=== PATIENT | female | born 1950 | race Caucasian/White ===

== ENCOUNTER 2017-12-30 06:28 | Day surgery (SDC) | payer MEDICARE, OTHER ==
[~2017-12-30 06:28] MED LIST: Lactated Ringers 1,000 ML IV SCH; Lidocaine 1%/Sod Bicarbonate in NS 8.4% 1 ML Syringe IDERM PRN; Sodium Chloride 0.9% 10 ML Syringe FLUSH PRN
[2017-12-30] MEDS ORDERED: Lidocaine 1% 4 ML ONE (07:04)
[2017-12-30] MEDS ORDERED: Propofol 200 MG/20 ML SDV ONE (07:04)
[2017-12-30] MEDS ORDERED: fentaNYL 100 MCG/2 ML SDV ONE (07:05)
--- NOTE | 2017-12-30 07:10 | PCM.PREANE ---
Preanesthetic Assessment - Procedure Proposed Procedure: screening colonoscopy - Anesthesia/Transfusion/Family Hx Anesthesia History: Prior Anesthesia Without Reaction Family History of Anesthesia Reaction: No Transfusion History: No Prior Transfusion(s) - Review of Systems General: No Symptoms Pulmonary: No Symptoms Cardiovascular: No Symptoms Gastrointestinal: No Symptoms Neurological: No Symptoms Other: Reports: None - Physical Assessment NPO Status Date: 12/29/17 NPO Status Time: 19:00 Pulse: 78 O2 Sat by Pulse Oximetry: 92 Respiratory Rate: 16 Blood Pressure: 148/86 Temperature: 98.7 F Height: 5 ft 2 in Weight: 105 kg ASA Class: 2 Mental Status: Alert & Oriented x3 Airway Class: Mallampati = 1 Dentition: Reports: Normal Dentition Thyro-Mental Finger Breadths: 3 Mouth Opening Finger Breadths: 3 ROM/Head Extension: Full Lungs: Clear to Auscultation, Normal Respiratory Effort Cardiovascular: Regular Rate, Regular Rhythm - Allergies Allergies/Adverse Reactions: Allergies Allergy/AdvReac Type Severity Reaction Status Date / Time No Known Allergies Allergy Verified 12/29/17 13:21 - Acknowledgements Anesthesia Type Planned: MAC Pt an Appropriate Candidate for the Planned Anesthesia: Yes Alternatives and Risks of Anesthesia Discussed w Pt/Guardian: Yes Pt/Guardian Understands and Agrees with Anesthesia Plan: Yes PreAnesthesia Questionnaire HEENT History: Reports: None, Impaired Vision Cardiovascular History: Reports: Hypertension Respiratory History: Reports: None Gastrointestinal History: Reports: None LPN CARE MANAGER History: Reports: None Musculoskeletal History: Reports: None Neurological History: Reports: Other (See Below) Other Neuro History: brain aneurysm with repair Psychiatric History: Reports: None Endocrine/Metabolic History: Reports: Obesity/BMI 30+ Hematologic History: Reports: None Immunologic History: Reports: None Oncologic (Cancer) History: Reports: None Dermatologic History: Reports: None - Past Surgical History Head Surgeries/Procedures: Reports: Other (See Below) (brain aneurysm surgery) HEENT Surgical History: Reports: None Cardiovascular Surgical History: Reports: None Respiratory Surgical History: Reports: None GI Surgical History: Reports: None Female Surgical History: Reports: None Male Surgical History: Reports: None Endocrine Surgical History: Reports: None Neurological Surgical History: Reports: None Musculoskeletal Surgical History: Reports: None Oncologic Surgical History: Reports: None Dermatological Surgical History: Reports: None - SUBSTANCE USE Smoking Status *Q: Never Smoker Tobacco Use Within Last Twelve Months: No Second Hand Smoke Exposure: No Days Per Week of Alcohol Use: 0 Recreational Drug Use History: No - HOME MEDS Home Medications: Home Meds Hydrochlorothiazide 25 mg PO DAILY 12/29/17 [History] - CURRENT (IN HOUSE) MEDS Current Meds: Current Medications Lactated Ringer's (Ringers, Lactated) 1,000 mls @ 125 mls/hr IV ASDIRECTED MORRO Stop: 12/30/17 23:00 Lidocaine/Sodium Bicarbonate (Buffered Lidocaine 1% In Ns 8.4%) 0.25 ml IDERM ONETIME PRN PRN Reason: Prior to IV Start Stop: 12/30/17 18:00 Sodium Chloride (Saline Flush) 10 ml FLUSH ASDIRECTED PRN PRN Reason: Keep Vein Open Stop: 12/30/17 18:00
--- NOTE | 2017-12-30 07:57 | PCM.HP ---
H&P History of Present Illness - General Date of Service: 12/30/17 Source of Information: Patient History Limitations: Reports: No Limitations - History of Present Illness Initial Comments - Free Text/Narative: 67 year old female here today for colonoscopy for colon cancer screening. She is having no concerns with her bowels. She has no family history of colon cancer. 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: None Musculoskeletal History: Reports: None Neurological History: Reports: Other (See Below) Other Neuro History: brain aneurysm with repair Psychiatric History: Reports: None Endocrine/Metabolic History: Reports: Obesity/BMI 30+ Hematologic History: Reports: None Immunologic History: Reports: None Oncologic (Cancer) History: Reports: None Dermatologic History: Reports: None - Past Surgical History Head Surgeries/Procedures: Reports: Other (See Below) (brain aneurysm surgery) HEENT Surgical History: Reports: None Cardiovascular Surgical History: Reports: None Respiratory Surgical History: Reports: None GI Surgical History: Reports: None Female Surgical History: Reports: None Male Surgical History: Reports: None Endocrine Surgical History: Reports: None Neurological Surgical History: Reports: None Musculoskeletal Surgical History: Reports: None Oncologic Surgical History: Reports: None Dermatological Surgical History: Reports: None Social & Family History - Tobacco Use Smoking Status *Q: Never Smoker Second Hand Smoke Exposure: No - Caffeine Use Caffeine Use: Reports: Soda - Alcohol Use Days Per Week of Alcohol Use: 0 - Recreational Drug Use Recreational Drug Use: No Drug Use in Last 12 Months: No H&P Review of Systems - Review of Systems: Review Of Systems: See Below General: Reports: No Symptoms Pulmonary: Reports: No Symptoms Cardiovascular: Reports: No Symptoms Gastrointestinal: Reports: No Symptoms Genitourinary: Reports: No Symptoms Exam - Exam Exam: See Below - Vital Signs Vital Signs: Last Vital Signs Temp 37.1 C 12/30/17 07:18 Pulse 78 12/30/17 07:18 Resp 16 12/30/17 07:18 BP 148/86 H 12/30/17 07:18 Pulse Ox 92 L 12/30/17 07:18 Weight: 105 kg - Exam General: Alert, Oriented Lungs: Clear to Auscultation, Normal Respiratory Effort Cardiovascular: Regular Rate, Regular Rhythm GI/Abdominal Exam: Normal Bowel Sounds, Soft, Non-Tender - Problem List (1) Colon cancer screening SNOMED Code(s): 349460356, [id number] ICD Code: Z12.11 - ENCOUNTER FOR SCREENING FOR MALIGNANT NEOPLASM OF COLON Status: Acute Current Visit: Yes Problem List Initiated/Reviewed/Updated: Yes Orders Last 24hrs: Active Orders 24 hr Category Date Time Status Peripheral IV Care [RC] . DIRECTED Care 12/30/17 00:01 Active Verify Patient Consent Obtain [RC] ASDIRECTED Care 12/30/17 00:01 Active Lactated Ringers [Ringers, Lactated] 1,000 ml Med 12/30/17 00:01 Active IV ASDIRECTED Lidocaine 1%/Sod Bicarbonate [Buffered Lidocaine 1% in Med 12/30/17 00:01 Active NS 8.4%] 0.25 ml IDERM ONETIME PRN Sodium Chloride 0.9% [Saline Flush] Med 12/30/17 00:01 Active 10 ml FLUSH ASDIRECTED PRN Medication Administration Instruction [OM.PC] Routine Oth 12/30/17 00:01 Ordered Peripheral IV Insertion Adult [OM.PC] Routine Oth 12/30/17 00:01 Ordered Medication Orders Lactated Ringer's (Ringers, Lactated) 1,000 mls @ 125 mls/hr IV ASDIRECTED MORRO Stop: 12/30/17 23:00 Last Admin: 12/30/17 06:55 Dose: 125 mls/hr Lidocaine/Sodium Bicarbonate (Buffered Lidocaine 1% In Ns 8.4%) 0.25 ml IDERM ONETIME PRN PRN Reason: Prior to IV Start Stop: 12/30/17 18:00 Last Admin: 12/30/17 06:54 Dose: 0.25 ml Sodium Chloride (Saline Flush) 10 ml FLUSH ASDIRECTED PRN PRN Reason: Keep Vein Open Stop: 12/30/17 18:00 Assessment/Plan Comment:: 67 year old female here for screening colonoscopy. Benefits/risks discussed and proceed with procedure. She has signed consent.
[2017-12-30] MEDS ORDERED: Ondansetron 4 MG/2 ML SDV IVPUSH PRN (08:27)
--- NOTE | 2017-12-30 08:30 | PCM.OPNOTE ---
- General Post-Op/Procedure Note Date of Surgery/Procedure: 12/30/17 Operative Procedure(s): Colonoscopy with hot snare polypectomy, cold forceps biopsy Findings: 2 - 2 mm ascending polyps, 1 - 1 cm sigmoid polyp, 1 - 2 mm rectal polyp, internal hemorrhoids Post-Op Diagnosis: Colon polyps, internal hemorrhoids Anesthesia Technique: MAC Primary Surgeon: Darren Vazquez Anesthesia Provider: Iqra Stratton EBL in mLs: 5 Complications: None Condition: Good Free Text/Narrative:: After the patient gave verbal and written consent she was placed on blood pressure monitoring. She was given iv sedation which she tolerated well. The olympus colonoscope was inserted per rectum and advanced to the cecum without difficulty. The ileocecal valve and appendiceal orfice were imaged documenting cecal intubation. The scope was slowly withdrawn and the mucosa carefully visualized. The prep was good, the views were good. 2 small 2 mm polyps were noted in the ascending colon and removed with cold forceps biopsy. There was good hemostasis. A larger pedunculated polyp was noted in the mid sigmoid colon and removed with hot snare polypectomy. There was good hemostasis. A small 2 mm rectal polyp was seen and removed with cold forceps biopsy. There was good hemostasis. The scope was then retroflexed and then removed. Internal hemorrhoids were seen. The patient left in good condition and there were no complications.
--- NOTE | 2017-12-30 10:03 | PCM48HPAN ---
Post Anesthesia Note - EVALUATION WITHIN 48HRS OF ANESTHETIC Vital Signs in Normal Range: Yes Patient Participated in Evaluation: Yes Respiratory Function Stable: Yes Airway Patent: Yes Cardiovascular Function Stable: Yes Hydration Status Stable: Yes Pain Control Satisfactory: Yes Nausea and Vomiting Control Satisfactory: Yes Mental Status Recovered: Yes Pulse Rate: 69 SaO2: 94 Resp Rate: 16 Blood Pressure: 130/77
== END 2017-12-30 09:10 | disposition home or self-care (01) ==
LOC: JD.SDS 06:28
PROVIDERS: ATTEND Family Medicine
DX: Z12.11 Encounter for screening for malignant neoplasm of colon (principal); D12.2 Benign neoplasm of ascending colon; D12.5 Benign neoplasm of sigmoid colon; K62.1 Rectal polyp; K64.8 Other hemorrhoids; I10 Essential (primary) hypertension; E66.9 Obesity, unspecified; Z68.41 Body mass index [BMI] 40.0-44.9, adult
CPT/HCPCS: 45380; 45385; J2001; J3010; J7120; J2704

== ENCOUNTER 2020-02-20 13:56 | Emergency (ER) | payer MEDICARE, OTHER | END 2020-02-20 14:08 | disposition left against medical advice (07) | LOC: JD.ED 13:56 | DX: Z53.21 Procedure and treatment not carried out due to patient leaving prior to being seen by health care provider (principal) ==

== ENCOUNTER 2020-02-20 16:26 | Inpatient (IN) | payer MEDICARE, OTHER ==
[2020-02-20] MEDS ORDERED: Sodium Chloride 0.9% 10 ML Syringe FLUSH PRN (17:39)
--- NOTE | 2020-02-20 19:03 | EDM.PDOC ---
ED HPI GENERAL MEDICAL PROBLEM - General Chief Complaint: Respiratory Problem Stated Complaint: COUGH/DIARRHEA/LOW O2 Time Seen by Provider: 02/20/20 17:20 Source of Information: Reports: Patient, Family History Limitations: Reports: No Limitations - History of Present Illness INITIAL COMMENTS - FREE TEXT/NARRATIVE: The patient presents from home for shortness of breath, cough and some confusion. Her is in our hospital and he is COVID positive. She is suspected COVID positive and quarantined. Her daughter brought her in because she has had a cough, shortness of breath, generalized weakness, no appetite and she has been confused. Last week she got lost driving in town and she has trouble doing everyday things like working her phone. Her oxygen saturations we re as low as 86% at home. I did see saturations as low at 88% here. She has no history of lung problems like asthma or COPD. She does have a history of hypertension. She developed some diarrhea. Onset: Gradual Duration: Week(s): Severity: Moderate Improves with: Reports: None Worsens with: Reports: None Associated Symptoms: Reports: Cough, Shortness of Breath. 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 History: Reports: None Musculoskeletal History: Reports: None Neurological History: Reports: Other (See Below) Other Neuro History: brain aneurysm with repair Psychiatric History: Reports: None Endocrine/Metabolic History: Reports: Obesity/BMI 30+ Hematologic History: Reports: None Immunologic History: Reports: None Oncologic (Cancer) History: Reports: None Dermatologic History: Reports: None - Infectious Disease History Infectious Disease History: Reports: Novel Coronavirus - Past Surgical History Head Surgeries/Procedures: Reports: Other (See Below) HEENT Surgical History: Reports: None Cardiovascular Surgical History: Reports: None, Aneurysm Respiratory Surgical History: Reports: None GI Surgical History: Reports: None Female Surgical History: Reports: None Endocrine Surgical History: Reports: None Neurological Surgical History: Reports: None Musculoskeletal Surgical History: Reports: None Oncologic Surgical History: Reports: None Dermatological Surgical History: Reports: None Social & Family History - Family History Family Medical History: Noncontributory - Tobacco Use Smoking Status *Q: Never Smoker - Caffeine Use Caffeine Use: Reports: Coffee, Soda, Tea - Recreational Drug Use Recreational Drug Use: No ED ROS GENERAL - Review of Systems Review Of Systems: See Below Constitutional: Reports: Chills. Denies: Fever HEENT: Reports: No Symptoms Respiratory: Reports: Shortness of Breath, Cough Cardiovascular: Reports: No Symptoms Endocrine: Reports: No Symptoms GI/Abdominal: Reports: No Symptoms : Reports: No Symptoms ED EXAM, GENERAL - Physical Exam Exam: See Below Exam Limited By: No Limitations General Appearance: Alert, No Apparent Distress Ears: Normal External Exam Nose: Normal Inspection Head: Atraumatic, Normocephalic Neck: Normal Inspection Respiratory/Chest: No Respiratory Distress, Decreased Breath Sounds, Rales (right lung) Cardiovascular: Regular Rate, Rhythm, No Edema, No Murmur GI/Abdominal: Soft, Non-Tender, No Organomegaly, No Mass Back Exam: Normal Inspection Extremities: Normal Inspection Neurological: Alert, Oriented, No Motor/Sensory Deficits Course - Vital Signs Last Recorded V/S: Last Vital Signs Temp 97.4 F 02/20/20 16:58 Pulse 72 02/20/20 16:58 Resp 18 02/20/20 16:58 BP 112/74 02/20/20 16:58 Pulse Ox 99 02/20/20 18:04 - Orders/Labs/Meds Orders: Active Orders 24 hr Category Date Time Status Cardiac Monitoring [RC] . DIRECTED Care 02/20/20 17:39 Active Oxygen Therapy [RC] PRN Care 02/20/20 17:39 Active Peripheral IV Care [RC] . DIRECTED Care 02/20/20 17:40 Active CORONAVIRUS COVID-19 BLADE [MOLEC] Stat Lab 02/20/20 19:00 Received Sodium Chloride 0.9% [Normal Saline] 500 ml Med 02/20/20 19:48 Ordered IV .BOLUS Sodium Chloride 0.9% [Saline Flush] Med 02/20/20 17:39 Active 10 ml FLUSH ASDIRECTED PRN Peripheral IV Insertion Adult [OM.PC] Stat Oth 02/20/20 17:39 Ordered Medication Orders Sodium Chloride (Saline Flush) 10 ml FLUSH ASDIRECTED PRN PRN Reason: Keep Vein Open Last Admin: 02/20/20 18:08 Dose: 10 ml Documented by: ALEXIS Labs: Laboratory Tests 02/20/20 02/20/20 02/20/20 Range/Units 18:35 18:35 18:35 WBC 5.38 (3.98-10.04) K/mm3 RBC 4.48 (3.98-5.22) M/mm3 Hgb 13.3 (11.2-15.7) gm/dl Hct 39.4 (34.1-44.9) % MCV 87.9 (79.4-94.8) fl MCH 29.7 (25.6-32.2) pg MCHC 33.8 (32.2-35.5) g/dl RDW Std Deviation 41.5 (36.4-46.3) fL Plt Count 239 (182-369) K/mm3 MPV 10.1 (9.4-12.3) fl Neut % (Auto) 51.8 (34.0-71.1) % Lymph % (Auto) 30.5 (19.3-51.7) % [place] % (Auto) 13.9 H (4.7-12.5) % Eos % (Auto) 1.3 (0.7-5.8) Baso % (Auto) 1.9 H (0.1-1.2) % Neut # (Auto) 2.79 (1.56-6.13) K/mm3 Lymph # (Auto) 1.64 (1.18-3.74) K/mm3 [place] # (Auto) 0.75 H (0.24-0.36) K/mm3 Eos # (Auto) 0.07 (0.04-0.36) K/mm3 Baso # (Auto) 0.10 H (0.01-0.08) K/mm3 Manual Slide Review Abnormal smear D-Dimer, Quantitative 0.77 H (0.19-0.50) mg/L Puncture Site ABG pH (7.35-7.45) ABG pCO2 (35.0-45.0) mmHg ABG pO2 (80.0-100.0) mmHg ABG HCO3 (22.0-26.0) meq/L ABG O2 Saturation (96.0-97.0) % ABG Base Excess (-2-2.0) Boris Test O2 Delivery Device Oxygen Flow Rate Sodium 135 L (136-145) mEq/L Potassium 3.4 L (3.5-5.1) mEq/L Chloride 98 (98-107) mEq/L Carbon Dioxide 29 (21-32) mEq/L Anion Gap 11.4 (5-15) BUN 32 H (7-18) mg/dL Creatinine 1.8 H (0.55-1.02) mg/dL Est Cr Clr Drug Dosing 23.66 mL/min Estimated GFR (MDRD) 28 (>60) mL/min BUN/Creatinine Ratio 17.8 (14-18) Glucose 90 (80-115) mg/dL Lactic Acid (0.4-2.0) mmol/L Calcium 9.4 (8.5-10.1) mg/dL Ferritin (8-252) ng/ml Total Bilirubin 0.7 (0.2-1.0) mg/dL AST 23 (15-37) U/L ALT 22 (14-59) U/L Alkaline Phosphatase 46 (46-116) U/L Lactate Dehydrogenase 168 (81-234) U/L Creatine Kinase 68 (26-192) U/L C-Reactive Protein 2.1 H* (<1.0) mg/dL NT-Pro-B Natriuret Pep (0-125) pg/mL Total Protein 7.9 (6.4-8.2) g/dl Albumin 3.5 (3.4-5.0) g/dl Globulin 4.4 gm/dL Albumin/Globulin Ratio 0.8 L (1-2) 02/20/20 02/20/20 02/20/20 Range/Units 18:35 18:35 18:35 WBC (3.98-10.04) K/mm3 RBC (3.98-5.22) M/mm3 Hgb (11.2-15.7) gm/dl Hct (34.1-44.9) % MCV (79.4-94.8) fl MCH (25.6-32.2) pg MCHC (32.2-35.5) g/dl RDW Std Deviation (36.4-46.3) fL Plt Count (182-369) K/mm3 MPV (9.4-12.3) fl Neut % (Auto) (34.0-71.1) % Lymph % (Auto) (19.3-51.7) % [place] % (Auto) (4.7-12.5) % Eos % (Auto) (0.7-5.8) Baso % (Auto) (0.1-1.2) % Neut # (Auto) (1.56-6.13) K/mm3 Lymph # (Auto) (1.18-3.74) K/mm3 [place] # (Auto) (0.24-0.36) K/mm3 Eos # (Auto) (0.04-0.36) K/mm3 Baso # (Auto) (0.01-0.08) K/mm3 Manual Slide Review D-Dimer, Quantitative (0.19-0.50) mg/L Puncture Site ABG pH (7.35-7.45) ABG pCO2 (35.0-45.0) mmHg ABG pO2 (80.0-100.0) mmHg ABG HCO3 (22.0-26.0) meq/L ABG O2 Saturation (96.0-97.0) % ABG Base Excess (-2-2.0) Boris Test O2 Delivery Device Oxygen Flow Rate Sodium (136-145) mEq/L Potassium (3.5-5.1) mEq/L Chloride (98-107) mEq/L Carbon Dioxide (21-32) mEq/L Anion Gap (5-15) BUN (7-18) mg/dL Creatinine (0.55-1.02) mg/dL Est Cr Clr Drug Dosing mL/min Estimated GFR (MDRD) (>60) mL/min BUN/Creatinine Ratio (14-18) Glucose (80-115) mg/dL Lactic Acid 1.0 (0.4-2.0) mmol/L Calcium (8.5-10.1) mg/dL Ferritin 583 H (8-252) ng/ml Total Bilirubin (0.2-1.0) mg/dL AST (15-37) U/L ALT (14-59) U/L Alkaline Phosphatase (46-116) U/L Lactate Dehydrogenase (81-234) U/L Creatine Kinase (26-192) U/L C-Reactive Protein (<1.0) mg/dL NT-Pro-B Natriuret Pep 30 (0-125) pg/mL Total Protein (6.4-8.2) g/dl Albumin (3.4-5.0) g/dl Globulin gm/dL Albumin/Globulin Ratio (1-2) // Range/Units 19:31 WBC (3.98-10.04) K/mm3 RBC (3.98-5.22) M/mm3 Hgb (11.2-15.7) gm/dl Hct (34.1-44.9) % MCV (79.4-94.8) fl MCH (25.6-32.2) pg MCHC (32.2-35.5) g/dl RDW Std Deviation (36.4-46.3) fL Plt Count (182-369) K/mm3 MPV (9.4-12.3) fl Neut % (Auto) (34.0-71.1) % Lymph % (Auto) (19.3-51.7) % [place] % (Auto) (4.7-12.5) % Eos % (Auto) (0.7-5.8) Baso % (Auto) (0.1-1.2) % Neut # (Auto) (1.56-6.13) K/mm3 Lymph # (Auto) (1.18-3.74) K/mm3 [place] # (Auto) (0.24-0.36) K/mm3 Eos # (Auto) (0.04-0.36) K/mm3 Baso # (Auto) (0.01-0.08) K/mm3 Manual Slide Review D-Dimer, Quantitative (0.19-0.50) mg/L Puncture Site Rt radial ABG pH 7.40 (7.35-7.45) ABG pCO2 41.2 (35.0-45.0) mmHg ABG pO2 84.0 (80.0-100.0) mmHg ABG HCO3 24.8 (22.0-26.0) meq/L ABG O2 Saturation 96.2 (96.0-97.0) % ABG Base Excess 0.4 (-2-2.0) Boris Test Positive O2 Delivery Device Nasal cannula Oxygen Flow Rate 1.0 Sodium (136-145) mEq/L Potassium (3.5-5.1) mEq/L Chloride (98-107) mEq/L Carbon Dioxide (21-32) mEq/L Anion Gap (5-15) BUN (7-18) mg/dL Creatinine (0.55-1.02) mg/dL Est Cr Clr Drug Dosing mL/min Estimated GFR (MDRD) (>60) mL/min BUN/Creatinine Ratio (14-18) Glucose (80-115) mg/dL Lactic Acid (0.4-2.0) mmol/L Calcium (8.5-10.1) mg/dL Ferritin (8-252) ng/ml Total Bilirubin (0.2-1.0) mg/dL AST (15-37) U/L ALT (14-59) U/L Alkaline Phosphatase (46-116) U/L Lactate Dehydrogenase (81-234) U/L Creatine Kinase (26-192) U/L C-Reactive Protein (<1.0) mg/dL NT-Pro-B Natriuret Pep (0-125) pg/mL Total Protein (6.4-8.2) g/dl Albumin (3.4-5.0) g/dl Globulin gm/dL Albumin/Globulin Ratio (1-2) Meds: Medications Generic Name Dose Route Start Last Admin Trade Name Freq PRN Reason Stop Dose Admin Sodium Chloride 10 ml 02/20/20 17:39 02/20/20 18:08 Saline Flush FLUSH 10 ml ASDIRECTED PRN Administration Keep Vein Open - Re-Assessments/Exams Free Text/Narrative Re-Assessment/Exam: 02/20/20 19:06 I ordered an IV saline lock, oxygen, CXR, and labs. Her CXR shows some increased lung markings in the perihilar region. 02/20/20 19:37 Her CXR shows slightly prominent inferior hilar region on the right side. This may represent adenopathy, focal bronchitis, or even superimposed small area of pneumonia. Her CBC looks good. Her D-dimer is elevated at 0.77. Her Na was low at 135. Her K was low at 3.4. Her creatinine is elevated at 1.8. Her lactic acid is normal at 1. Her ferritin is elevated at 583. Her LDH is normal. Her CRP is elevated at 2.1. 02/20/20 19:40 Her ABG looks good. She has a normal pH, pCO2 and pO2. That is on oxygen. 02/20/20 19:50 Her COVID 19 is not back yet but we will treat her the same until were get [address] I [address] Fuentes and he agreed to the admission. 02/20/20 19:52 I have ordered a fluid bolus and a rate of 125mL/hr. Departure - Departure Time of Disposition: 19:55 Disposition: Admitted As Inpatient 67 Condition: Fair Clinical Impression: COVID-19, Hypoxia, Renal insufficiency - Discharge Information Referrals: Chloe Saldana QC CHEMIST [Primary Care Provider] - Forms: ED Department Discharge Sepsis Event Note (ED) - Evaluation Sepsis Screening Result: No Definite Risk - Focused Exam Vital Signs: Vital Signs Temp Pulse Resp BP Pulse Ox Pulse Ox 02/20/20 18:04 99 02/20/20 18:00 89 L 02/20/20 16:58 97.4 F 72 18 112/74 91 L - My Orders Last 24 Hours: My Active Orders 02/20/20 17:39 Cardiac Monitoring [RC] . DIRECTED Oxygen Therapy [RC] PRN Sodium Chloride 0.9% [Saline Flush] 10 ml FLUSH ASDIRECTED PRN Peripheral IV Insertion Adult [OM.PC] Stat 02/20/20 17:40 Peripheral IV Care [RC] . DIRECTED 02/20/20 19:00 CORONAVIRUS COVID-19 BLADE [MOLEC] Stat 02/20/20 19:48 Sodium Chloride 0.9% [Normal Saline] 500 ml IV .BOLUS - Assessment/Plan Last 24 Hours: My Active Orders 02/20/20 17:39 Cardiac Monitoring [RC] . DIRECTED Oxygen Therapy [RC] PRN Sodium Chloride 0.9% [Saline Flush] 10 ml FLUSH ASDIRECTED PRN Peripheral IV Insertion Adult [OM.PC] Stat 02/20/20 17:40 Peripheral IV Care [RC] . DIRECTED 02/20/20 19:00 CORONAVIRUS COVID-19 BLADE [MOLEC] Stat 02/20/20 19:48 Sodium Chloride 0.9% [Normal Saline] 500 ml IV .BOLUS
--- NOTE | 2020-02-20 19:12 | CR ---
Chest: Portable view of the chest was obtained. Comparison: No prior chest imaging is available. Heart size appears within normal limits for portable technique. Tortuous thoracic aorta is seen. Slight prominence of the inferior right hilar region is seen. This may represent adenopathy, focal bronchitis or even superimposed small area of pneumonia. Lungs otherwise are clear. Bony structures are grossly intact. Impression: 1. Slightly prominent inferior hilar region on the right side, please see above for differential, upright PA and lateral view would be helpful to further evaluate if clinically indicated. 2. Nothing acute is otherwise seen. Diagnostic code #3 This report was dictated in MDT
[2020-02-20] MEDS ORDERED: Sodium Chloride 0.9% 500 ML IV ONE (19:48)
[2020-02-20] MEDS ORDERED: Acetaminophen 325 MG Tab PO PRN (21:29)
[2020-02-20] MEDS ORDERED: Potassium Chloride 20 MEQ Tab.ER PO ONE (21:34)
--- NOTE | 2020-02-20 21:52 | PCM.HP.2 ---
H&P History of Present Illness - General Date of Service: 02/20/20 Admit Problem/Dx: Admission Diagnosis/Problem Admission Diagnosis/Problem Hypoxia - History of Present Illness Initial Comments - Free Text/Narative: 69-year-old female who is currently hospitalized with a severe infection from COVID-19. 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 Patient has also complained of diarrhea. She denies any shortness of breath or cough, but her daughter who brought her in states that she has had a cough, shortness of breath, generalized weakness, and no appetite. I am the physician for her and spoke with the daughter and Varsha by video phone earlier today and recommend they get home oxygen saturation meter. At home her O2 sats were as low as 86%. When she presented to the emergency department her initial saturations were 88%. Patient and daughter deny fever, chills, nausea, or vomiting. She has a history of hypertension but no lung disease. She is also morbidly obese. - Related Data Allergies/Adverse Reactions: Allergies Allergy/AdvReac Type Severity Reaction Status Date / Time No Known Allergies Allergy Verified 02/21/20 00:27 Home Medications: Home Meds Losartan/Hydrochlorothiazide [Losartan-HCTZ 100-12.5 MG] 1 tab PO DAILY 02/21/20 [History] Metoprolol Succinate [Toprol XL] 12.5 mg PO DAILY 02/21/20 [History] Simvastatin [Zocor] 20 mg PO DAILY 02/21/20 [History] Past Medical History HEENT History: Reports: None, Impaired Vision Cardiovascular History: Reports: Aneurysm, Hypertension Respiratory History: Reports: None Gastrointestinal History: Reports: None [employer] LOC[employer] MANAGER History: Reports: None Musculoskeletal History: Reports: None Neurological History: Reports: Other (See Below) Other Neuro History: brain aneurysm with repair Psychiatric History: Reports: None Endocrine/Metabolic History: Reports: Obesity/BMI 30+ Hematologic History: Reports: None Immunologic History: Reports: None Oncologic (Cancer) History: Reports: None Dermatologic History: Reports: None - Infectious Disease History Infectious Disease History: Reports: Novel Coronavirus - Past Surgical History Head Surgeries/Procedures: Reports: Other (See Below) HEENT Surgical History: Reports: None Cardiovascular Surgical History: Reports: None, Aneurysm Respiratory Surgical History: Reports: None GI Surgical History: Reports: None Female Surgical History: Reports: None Endocrine Surgical History: Reports: None Neurological Surgical History: Reports: None Musculoskeletal Surgical History: Reports: None Oncologic Surgical History: Reports: None Dermatological Surgical History: Reports: None Social & Family History - Family History Family Medical History: Noncontributory - Tobacco Use Smoking Status *Q: Never Smoker - Caffeine Use Caffeine Use: Reports: Coffee, Soda, Tea - Recreational Drug Use Recreational Drug Use: No H&P Review of Systems - Review of Systems: Review Of Systems: Comprehensive ROS is negative, except as noted in HPI. Exam - Exam Exam: See Below - Vital Signs Vital Signs: Last Vital Signs Temp 97.4 F 02/20/20 16:58 Pulse 72 02/20/20 16:58 Resp 18 02/20/20 16:58 BP 112/74 02/20/20 16:58 Pulse Ox 99 02/20/20 18:04 Weight: 97.023 kg - Exam Quality Assessment: Supplemental Oxygen General: Alert, Oriented HEENT: Conjunctiva Clear, Hearing Intact, Mucosa Moist & [place], PERRLA Neck: Supple, Trachea Midline, 2 Lungs: Clear to Auscultation, Normal Respiratory Effort, Decreased Breath Sounds Cardiovascular: Regular Rate, Regular Rhythm GI/Abdominal Exam: Normal Bowel Sounds, Soft, Non-Tender, No Distention Extremities: Normal Inspection, Non-Tender, No Pedal Edema, Normal Capillary Refill Skin: Warm, Dry, Intact Neuro Extensive - Mental Status: Alert, Oriented x3, Normal Mood/Affect, Normal Cognition, Memory Intact Neuro Extensive - Motor, Sensory, Reflexes: CN II-XII Intact, Normal Gait, Normal Reflexes Psychiatric: Alert, Normal Affect, Normal Mood - Patient Data Lab Results Last 24 hrs: Laboratory Results - last 24 hr 02/20/20 02/20/20 02/20/20 Range/Units 18:35 18:35 18:35 WBC 5.38 (3.98-10.04) K/mm3 RBC 4.48 (3.98-5.22) M/mm3 Hgb 13.3 (11.2-15.7) gm/dl Hct 39.4 (34.1-44.9) % MCV 87.9 (79.4-94.8) fl MCH 29.7 (25.6-32.2) pg MCHC 33.8 (32.2-35.5) g/dl RDW Std Deviation 41.5 (36.4-46.3) fL Plt Count 239 (182-369) K/mm3 MPV 10.1 (9.4-12.3) fl Neut % (Auto) 51.8 (34.0-71.1) % Lymph % (Auto) 30.5 (19.3-51.7) % Johnson % (Auto) 13.9 H (4.7-12.5) % Eos % (Auto) 1.3 (0.7-5.8) Baso % (Auto) 1.9 H (0.1-1.2) % Neut # (Auto) 2.79 (1.56-6.13) K/mm3 Lymph # (Auto) 1.64 (1.18-3.74) K/mm3 Johnson # (Auto) 0.75 H (0.24-0.36) K/mm3 Eos # (Auto) 0.07 (0.04-0.36) K/mm3 Baso # (Auto) 0.10 H (0.01-0.08) K/mm3 Manual Slide Review Abnormal smear D-Dimer, Quantitative 0.77 H (0.19-0.50) mg/L Puncture Site ABG pH (7.35-7.45) ABG pCO2 (35.0-45.0) mmHg ABG pO2 (80.0-100.0) mmHg ABG HCO3 (22.0-26.0) meq/L ABG O2 Saturation (96.0-97.0) % ABG Base Excess (-2-2.0) Boris Test O2 Delivery Device Oxygen Flow Rate Sodium 135 L (136-145) mEq/L Potassium 3.4 L (3.5-5.1) mEq/L Chloride 98 (98-107) mEq/L Carbon Dioxide 29 (21-32) mEq/L Anion Gap 11.4 (5-15) BUN 32 H (7-18) mg/dL Creatinine 1.8 H (0.55-1.02) mg/dL Est Cr Clr Drug Dosing 23.66 mL/min Estimated GFR (MDRD) 28 (>60) mL/min BUN/Creatinine Ratio 17.8 (14-18) Glucose 90 (80-115) mg/dL Lactic Acid (0.4-2.0) mmol/L Calcium 9.4 (8.5-10.1) mg/dL Ferritin (8-252) ng/ml Total Bilirubin 0.7 (0.2-1.0) mg/dL AST 23 (15-37) U/L ALT 22 (14-59) U/L Alkaline Phosphatase 46 (46-116) U/L Lactate Dehydrogenase 168 (81-234) U/L Creatine Kinase 68 (26-192) U/L C-Reactive Protein 2.1 H* (<1.0) mg/dL NT-Pro-B Natriuret Pep (0-125) pg/mL Total Protein 7.9 (6.4-8.2) g/dl Albumin 3.5 (3.4-5.0) g/dl Globulin 4.4 gm/dL Albumin/Globulin Ratio 0.8 L (1-2) SARS Virus RNA (PCR) (NEGATIVE) 02/20/20 02/20/20 02/20/20 Range/Units 18:35 18:35 18:35 WBC (3.98-10.04) K/mm3 RBC (3.98-5.22) M/mm3 Hgb (11.2-15.7) gm/dl Hct (34.1-44.9) % MCV (79.4-94.8) fl MCH (25.6-32.2) pg MCHC (32.2-35.5) g/dl RDW Std Deviation (36.4-46.3) fL Plt Count (182-369) K/mm3 MPV (9.4-12.3) fl Neut % (Auto) (34.0-71.1) % Lymph % (Auto) (19.3-51.7) % Johnson % (Auto) (4.7-12.5) % Eos % (Auto) (0.7-5.8) Baso % (Auto) (0.1-1.2) % Neut # (Auto) (1.56-6.13) K/mm3 Lymph # (Auto) (1.18-3.74) K/mm3 Johnson # (Auto) (0.24-0.36) K/mm3 Eos # (Auto) (0.04-0.36) K/mm3 Baso # (Auto) (0.01-0.08) K/mm3 Manual Slide Review D-Dimer, Quantitative (0.19-0.50) mg/L Puncture Site ABG pH (7.35-7.45) ABG pCO2 (35.0-45.0) mmHg ABG pO2 (80.0-100.0) mmHg ABG HCO3 (22.0-26.0) meq/L ABG O2 Saturation (96.0-97.0) % ABG Base Excess (-2-2.0) Boris Test O2 Delivery Device Oxygen Flow Rate Sodium (136-145) mEq/L Potassium (3.5-5.1) mEq/L Chloride (98-107) mEq/L Carbon Dioxide (21-32) mEq/L Anion Gap (5-15) BUN (7-18) mg/dL Creatinine (0.55-1.02) mg/dL Est Cr Clr Drug Dosing mL/min Estimated GFR (MDRD) (>60) mL/min BUN/Creatinine Ratio (14-18) Glucose (80-115) mg/dL Lactic Acid 1.0 (0.4-2.0) mmol/L Calcium (8.5-10.1) mg/dL Ferritin 583 H (8-252) ng/ml Total Bilirubin (0.2-1.0) mg/dL AST (15-37) U/L ALT (14-59) U/L Alkaline Phosphatase (46-116) U/L Lactate Dehydrogenase (81-234) U/L Creatine Kinase (26-192) U/L C-Reactive Protein (<1.0) mg/dL NT-Pro-B Natriuret Pep 30 (0-125) pg/mL Total Protein (6.4-8.2) g/dl Albumin (3.4-5.0) g/dl Globulin gm/dL Albumin/Globulin Ratio (1-2) SARS Virus RNA (PCR) (NEGATIVE) 02/20/20 02/20/20 Range/Units 19:00 19:31 WBC (3.98-10.04) K/mm3 RBC (3.98-5.22) M/mm3 Hgb (11.2-15.7) gm/dl Hct (34.1-44.9) % MCV (79.4-94.8) fl MCH (25.6-32.2) pg MCHC (32.2-35.5) g/dl RDW Std Deviation (36.4-46.3) fL Plt Count (182-369) K/mm3 MPV (9.4-12.3) fl Neut % (Auto) (34.0-71.1) % Lymph % (Auto) (19.3-51.7) % Johnson % (Auto) (4.7-12.5) % Eos % (Auto) (0.7-5.8) Baso % (Auto) (0.1-1.2) % Neut # (Auto) (1.56-6.13) K/mm3 Lymph # (Auto) (1.18-3.74) K/mm3 Johnson # (Auto) (0.24-0.36) K/mm3 Eos # (Auto) (0.04-0.36) K/mm3 Baso # (Auto) (0.01-0.08) K/mm3 Manual Slide Review D-Dimer, Quantitative (0.19-0.50) mg/L Puncture Site Rt radial ABG pH 7.40 (7.35-7.45) ABG pCO2 41.2 (35.0-45.0) mmHg ABG pO2 84.0 (80.0-100.0) mmHg ABG HCO3 24.8 (22.0-26.0) meq/L ABG O2 Saturation 96.2 (96.0-97.0) % ABG Base Excess 0.4 (-2-2.0) Boris Test Positive O2 Delivery Device Nasal cannula Oxygen Flow Rate 1.0 Sodium (136-145) mEq/L Potassium (3.5-5.1) mEq/L Chloride (98-107) mEq/L Carbon Dioxide (21-32) mEq/L Anion Gap (5-15) BUN (7-18) mg/dL Creatinine (0.55-1.02) mg/dL Est Cr Clr Drug Dosing mL/min Estimated GFR (MDRD) (>60) mL/min BUN/Creatinine Ratio (14-18) Glucose (80-115) mg/dL Lactic Acid (0.4-2.0) mmol/L Calcium (8.5-10.1) mg/dL Ferritin (8-252) ng/ml Total Bilirubin (0.2-1.0) mg/dL AST (15-37) U/L ALT (14-59) U/L Alkaline Phosphatase (46-116) U/L Lactate Dehydrogenase (81-234) U/L Creatine Kinase (26-192) U/L C-Reactive Protein (<1.0) mg/dL NT-Pro-B Natriuret Pep (0-125) pg/mL Total Protein (6.4-8.2) g/dl Albumin (3.4-5.0) g/dl Globulin gm/dL Albumin/Globulin Ratio (1-2) SARS Virus RNA (PCR) Positive H (NEGATIVE) Result Diagrams: 02/21/20 05:25 02/21/20 05:25 Imaging Impressions Last 24 hrs: Chest x-ray: Slightly prominent inferior hilar region on the right side. Differential includes adenopathy, focal bronchitis, or even superimposed small area of pneumonia. Upright PA and lateral view would be helpful for further evaluation. Sepsis Event Note - Evaluation Sepsis Screening Result: No Definite Risk - Focused Exam Vital Signs: Vital Signs Temp Pulse Resp BP Pulse Ox Pulse Ox 02/20/20 18:04 99 02/20/20 18:00 89 L 02/20/20 16:58 97.4 F 72 18 112/74 91 L - Problem List (1) COVID-19 SNOMED Code(s): 027535328 ICD Code: U07.1 - COVID-19 Status: Acute Current Visit: Yes (2) Hypoxia SNOMED Code(s): 514798019 ICD Code: R09.02 - HYPOXEMIA Status: Acute Current Visit: Yes (3) Renal insufficiency SNOMED Code(s): 967862831, 079038352 ICD Code: N28.9 - DISORDER OF KIDNEY AND URETER, UNSPECIFIED Status: Acute Current Visit: Yes Problem List Initiated/Reviewed/Updated: Yes Orders Last 24hrs: Active Orders 24 hr Category Date Time Status Patient Status [ADT] Routine ADT 02/20/20 21:28 Active Cardiac Monitoring [RC] . DIRECTED Care 02/20/20 17:39 Active Oxygen Therapy [RC] PRN Care 02/20/20 17:39 Active Oxygen Therapy [RC] PRN Care 02/20/20 21:29 Active Peripheral IV Care [RC] . DIRECTED Care 02/20/20 17:40 Active Up ad Kristina [RC] ASDIRECTED Care 02/20/20 21:29 Active VTE/DVT Education [RC] PER UNIT ROUTINE Care 02/20/20 21:29 Active Vital Signs [RC] Q4H Care 02/20/20 21:29 Active Regular Diet [DIET] Diet 02/21/20 Breakfast Active C-REACTIVE PROTEIN [CHEM] AM Lab 02/21/20 05:11 Ordered C-REACTIVE PROTEIN [CHEM] AM Lab 02/22/20 05:11 Ordered C-REACTIVE PROTEIN [CHEM] AM Lab 02/23/20 05:11 Ordered CBC WITH AUTO DIFF [HEME] AM Lab 02/21/20 05:11 Ordered CBC WITH AUTO DIFF [HEME] AM Lab 02/22/20 05:11 Ordered CBC WITH AUTO DIFF [HEME] AM Lab 02/23/20 05:11 Ordered COMPREHENSIVE METABOLIC PN,CMP [CHEM] AM Lab 02/21/20 05:11 Ordered COMPREHENSIVE METABOLIC PN,CMP [CHEM] AM Lab 02/22/20 05:11 Ordered COMPREHENSIVE METABOLIC PN,CMP [CHEM] AM Lab 02/23/20 05:11 Ordered CULTURE BLOOD [BC] Stat Lab 02/20/20 21:38 Ordered CULTURE BLOOD [BC] Stat Lab 02/20/20 21:38 Ordered D Dimer [D-DIMER QUANTITATIVE] [COAG] AM Lab 02/21/20 05:11 Ordered D Dimer [D-DIMER QUANTITATIVE] [COAG] AM Lab 02/22/20 05:11 Ordered D Dimer [D-DIMER QUANTITATIVE] [COAG] AM Lab 02/23/20 05:11 Ordered INR,PT,PROTHROMBIN TIME [COAG] AM Lab 02/21/20 05:11 Ordered MAGNESIUM [CHEM] AM Lab 02/21/20 05:11 Ordered MAGNESIUM [CHEM] AM Lab 02/22/20 05:11 Ordered MAGNESIUM [CHEM] AM Lab 02/23/20 05:11 Ordered PHOSPHORUS [CHEM] AM Lab 02/21/20 05:11 Ordered PHOSPHORUS [CHEM] AM Lab 02/22/20 05:11 Ordered PHOSPHORUS [CHEM] AM Lab 02/23/20 05:11 Ordered PROCALCITONIN [REF] Routine Lab 02/20/20 21:36 Ordered PTT,PARTIAL THROMBOPLSTIN TIME [COAG] AM Lab 02/21/20 05:11 Ordered VITAMIN D,25-HYDROXY [CHEM] AM Lab 02/21/20 05:11 Ordered Acetaminophen [TylenoL] Med 02/20/20 21:29 Active 650 mg PO Q4H PRN Azithromycin [Zithromax] 500 mg Med 02/20/20 21:45 Active Sodium Chloride 0.9% [Normal Saline] 250 ml IV Q24H Sodium Chloride 0.9% [Saline Flush] Med 02/20/20 17:39 Active 10 ml FLUSH ASDIRECTED PRN cefTRIAXone [Rocephin] 2 gm Med 02/20/20 21:45 Active Sodium Chloride 0.9% [Normal Saline] 100 ml IV Q24H Blood Culture x2 Reflex Set [OM.PC] Stat Oth 02/20/20 21:38 Ordered Peripheral IV Insertion Adult [OM.PC] Stat Oth 02/20/20 17:39 Ordered Medication Orders Acetaminophen (Tylenol) 650 mg PO Q4H PRN PRN Reason: Pain (Mild 1-3)/fever Ceftriaxone Sodium 2 gm/ (Sodium Chloride) 100 mls @ 200 mls/hr IV Q24H MORRO Stop: 02/25/20 21:46 Azithromycin 500 mg/ Sodium (Chloride) 250 mls @ 250 mls/hr IV Q24H MORRO Stop: 02/23/20 21:46 Sodium Chloride (Saline Flush) 10 ml FLUSH ASDIRECTED PRN PRN Reason: Keep Vein Open Last Admin: 02/20/20 18:08 Dose: 10 ml Documented by: ALEXIS Assessment/Plan Comment:: Assessment Severe COVID-19 infection with hypoxemia and pneumonia * Home saturations of 86% and room air at the emergency department 88%. * Currently on 1 L nasal cannula with saturations in the low 90s. * WBC 5.38, C-reactive protein 2.1, d-dimer 0.77, Lactic acid 1.0 * ABG: pH 7.4, PaO2 84 on 1 L nasal cannula Hypokalemia * Patient is on hydrochlorothiazide and has diarrhea likely the cause of the hypokalemia. * Potassium slightly low at 3.4 Hypertension/hyperlipidemia -chronic * Home meds include losartan/hydrochlorothiazide 100/12.5, Toprol XL 12.5 daily, and simvastatin 20 mg daily Memory loss secondary to cerebral aneurysm and repair * Patient usually has care from at home, but he is currently hospitalized with COVID * She has become more confused recently likely secondary to hypoxemia and Plan * Admit to medical floor on telemetry and continuous pulse oximetry * Start dexamethasone 6 mg daily for 10 days * Rocephin 2 g every 24 hours x5 days * Azithromycin 500 mg every 24 hours x3 days * Supplement potassium. * Switch simvastatin to Crestor secondary to potential interactions of simvastatin and azithromycin. * Hold losartan/hydrochlorothiazide * Continue Toprol-XL 12.5 mg daily * Consider remdesivir, Actemra, and convalescent plasma if oxygen requirements increase * FiO2 to keep SPO2 between 88 and 95%. * Follow CBC, CMP, magnesium, d-dimer, CRP * VTE prophylaxis with Lovenox * CODE STATUS: Full code * Disposition admit to hospital on strict isolation. Length of stay likely 4 to 8 days. - Mortality Measure Prognosis:: Poor
[2020-02-20] MEDS: cefTRIAXone 2 GM in Sodium Chloride 0.9% 100 ML IV SCH (23:10)
[2020-02-20] MEDS: Dexamethasone 4 MG Tab PO SCH (23:19)
[2020-02-20] MEDS: Azithromycin 500 MG in Sodium Chloride 0.9% 250 ML IV SCH (23:19)
[2020-02-21 07:11] LABS: VITAMIN D,25-HYDROXY 10.4 ng/ml (30.0-100.0)
[2020-02-21] MEDS: Famotidine 20 MG Tab PO SCH ×2 (08:14→20:52)
[2020-02-21] MEDS: Cholecalciferol (Vitamin D3) 5,000 UNIT Tab PO SCH (08:14)
[2020-02-21] MEDS ORDERED: Enoxaparin 40 MG/0.4 ML Syringe SUBCUT SCH (10:15)
--- NOTE | 2020-02-21 14:39 | PCM.PN ---
- General Info Date of Service: 02/21/20 Admission Dx/Problem (Free Text): Admission Diagnosis/Problem Admission Diagnosis/Problem Hypoxia Subjective Update: Patient is doing well. She is requiring 1 L nasal cannula but it has not worsened. When I walked in the room she had her oxygen off and her pulse ox was 84%. Appetite is good. Functional Status: Reports: Pain Controlled - Review of Systems General: Reports: No Symptoms HEENT: Reports: No Symptoms Pulmonary: Reports: No Symptoms Cardiovascular: Reports: No Symptoms Gastrointestinal: Reports: No Symptoms Musculoskeletal: Reports: No Symptoms - Patient Data Vitals - Most Recent: Last Vital Signs Temp 97.5 F 02/21/20 12:40 Pulse 58 L 02/21/20 12:40 Resp 20 02/21/20 12:40 BP 113/62 02/21/20 12:40 Pulse Ox 97 02/21/20 12:40 Weight - Most Recent: 97.023 kg I&O - Last 24 Hours: Intake & Output 02/20/20 02/21/20 02/21/20 22:59 06:59 14:59 Intake Total 880 Output Total 560 Balance 320 Lab Results Last 24 Hours: Laboratory Results - last 24 hr 02/20/20 02/20/20 02/20/20 Range/Units 18:35 18:35 18:35 WBC 5.38 (3.98-10.04) K/mm3 RBC 4.48 (3.98-5.22) M/mm3 Hgb 13.3 (11.2-15.7) gm/dl Hct 39.4 (34.1-44.9) % MCV 87.9 (79.4-94.8) fl MCH 29.7 (25.6-32.2) pg MCHC 33.8 (32.2-35.5) g/dl RDW Std Deviation 41.5 (36.4-46.3) fL Plt Count 239 (182-369) K/mm3 MPV 10.1 (9.4-12.3) fl Neut % (Auto) 51.8 (34.0-71.1) % Lymph % (Auto) 30.5 (19.3-51.7) % [place] % (Auto) 13.9 H (4.7-12.5) % Eos % (Auto) 1.3 (0.7-5.8) Baso % (Auto) 1.9 H (0.1-1.2) % Neut # (Auto) 2.79 (1.56-6.13) K/mm3 Lymph # (Auto) 1.64 (1.18-3.74) K/mm3 [place] # (Auto) 0.75 H (0.24-0.36) K/mm3 Eos # (Auto) 0.07 (0.04-0.36) K/mm3 Baso # (Auto) 0.10 H (0.01-0.08) K/mm3 Manual Slide Review Abnormal smear PT (9.7-12.0) SECONDS INR APTT (22-31) SECONDS D-Dimer, Quantitative 0.77 H (0.19-0.50) mg/L Puncture Site ABG pH (7.35-7.45) ABG pCO2 (35.0-45.0) mmHg ABG pO2 (80.0-100.0) mmHg ABG HCO3 (22.0-26.0) meq/L ABG O2 Saturation (96.0-97.0) % ABG Base Excess (-2-2.0) Boris Test O2 Delivery Device Oxygen Flow Rate Sodium 135 L (136-145) mEq/L Potassium 3.4 L (3.5-5.1) mEq/L Chloride 98 (98-107) mEq/L Carbon Dioxide 29 (21-32) mEq/L Anion Gap 11.4 (5-15) BUN 32 H (7-18) mg/dL Creatinine 1.8 H (0.55-1.02) mg/dL Est Cr Clr Drug Dosing 23.66 mL/min Estimated GFR (MDRD) 28 (>60) mL/min BUN/Creatinine Ratio 17.8 (14-18) Glucose 90 (80-115) mg/dL Lactic Acid (0.4-2.0) mmol/L Calcium 9.4 (8.5-10.1) mg/dL Phosphorus (2.6-4.7) mg/dL Magnesium (1.8-2.4) mg/dl Ferritin (8-252) ng/ml Total Bilirubin 0.7 (0.2-1.0) mg/dL AST 23 (15-37) U/L ALT 22 (14-59) U/L Alkaline Phosphatase 46 (46-116) U/L Lactate Dehydrogenase 168 (81-234) U/L Creatine Kinase 68 (26-192) U/L C-Reactive Protein 2.1 H* (<1.0) mg/dL NT-Pro-B Natriuret Pep (0-125) pg/mL Total Protein 7.9 (6.4-8.2) g/dl Albumin 3.5 (3.4-5.0) g/dl Globulin 4.4 gm/dL Albumin/Globulin Ratio 0.8 L (1-2) Vitamin D 25-Hydroxy (30.0-100.0) ng/ml SARS Virus RNA (PCR) (NEGATIVE) 02/20/20 02/20/20 02/20/20 Range/Units 18:35 18:35 18:35 WBC (3.98-10.04) K/mm3 RBC (3.98-5.22) M/mm3 Hgb (11.2-15.7) gm/dl Hct (34.1-44.9) % MCV (79.4-94.8) fl MCH (25.6-32.2) pg MCHC (32.2-35.5) g/dl RDW Std Deviation (36.4-46.3) fL Plt Count (182-369) K/mm3 MPV (9.4-12.3) fl Neut % (Auto) (34.0-71.1) % Lymph % (Auto) (19.3-51.7) % [place] % (Auto) (4.7-12.5) % Eos % (Auto) (0.7-5.8) Baso % (Auto) (0.1-1.2) % Neut # (Auto) (1.56-6.13) K/mm3 Lymph # (Auto) (1.18-3.74) K/mm3 [place] # (Auto) (0.24-0.36) K/mm3 Eos # (Auto) (0.04-0.36) K/mm3 Baso # (Auto) (0.01-0.08) K/mm3 Manual Slide Review PT (9.7-12.0) SECONDS INR APTT (22-31) SECONDS D-Dimer, Quantitative (0.19-0.50) mg/L Puncture Site ABG pH (7.35-7.45) ABG pCO2 (35.0-45.0) mmHg ABG pO2 (80.0-100.0) mmHg ABG HCO3 (22.0-26.0) meq/L ABG O2 Saturation (96.0-97.0) % ABG Base Excess (-2-2.0) Boris Test O2 Delivery Device Oxygen Flow Rate Sodium (136-145) mEq/L Potassium (3.5-5.1) mEq/L Chloride (98-107) mEq/L Carbon Dioxide (21-32) mEq/L Anion Gap (5-15) BUN (7-18) mg/dL Creatinine (0.55-1.02) mg/dL Est Cr Clr Drug Dosing mL/min Estimated GFR (MDRD) (>60) mL/min BUN/Creatinine Ratio (14-18) Glucose (80-115) mg/dL Lactic Acid 1.0 (0.4-2.0) mmol/L Calcium (8.5-10.1) mg/dL Phosphorus (2.6-4.7) mg/dL Magnesium (1.8-2.4) mg/dl Ferritin 583 H (8-252) ng/ml Total Bilirubin (0.2-1.0) mg/dL AST (15-37) U/L ALT (14-59) U/L Alkaline Phosphatase (46-116) U/L Lactate Dehydrogenase (81-234) U/L Creatine Kinase (26-192) U/L C-Reactive Protein (<1.0) mg/dL NT-Pro-B Natriuret Pep 30 (0-125) pg/mL Total Protein (6.4-8.2) g/dl Albumin (3.4-5.0) g/dl Globulin gm/dL Albumin/Globulin Ratio (1-2) Vitamin D 25-Hydroxy (30.0-100.0) ng/ml SARS Virus RNA (PCR) (NEGATIVE) 02/20/20 02/20/20 02/21/20 Range/Units 19:00 19:31 05:25 WBC 3.50 L (3.98-10.04) K/mm3 RBC 4.56 (3.98-5.22) M/mm3 Hgb 13.2 (11.2-15.7) gm/dl Hct 40.0 (34.1-44.9) % MCV 87.7 (79.4-94.8) fl MCH 28.9 (25.6-32.2) pg MCHC 33.0 (32.2-35.5) g/dl RDW Std Deviation 40.6 (36.4-46.3) fL Plt Count 224 (182-369) K/mm3 MPV 10.8 (9.4-12.3) fl Neut % (Auto) 72.0 H (34.0-71.1) % Lymph % (Auto) 21.7 (19.3-51.7) % [place] % (Auto) 3.4 L (4.7-12.5) % Eos % (Auto) 0.6 L (0.7-5.8) Baso % (Auto) 1.7 H (0.1-1.2) % Neut # (Auto) 2.52 (1.56-6.13) K/mm3 Lymph # (Auto) 0.76 L (1.18-3.74) K/mm3 [place] # (Auto) 0.12 L (0.24-0.36) K/mm3 Eos # (Auto) 0.02 L (0.04-0.36) K/mm3 Baso # (Auto) 0.06 (0.01-0.08) K/mm3 Manual Slide Review Abnormal smear PT (9.7-12.0) SECONDS INR APTT (22-31) SECONDS D-Dimer, Quantitative (0.19-0.50) mg/L Puncture Site Rt radial ABG pH 7.40 (7.35-7.45) ABG pCO2 41.2 (35.0-45.0) mmHg ABG pO2 84.0 (80.0-100.0) mmHg ABG HCO3 24.8 (22.0-26.0) meq/L ABG O2 Saturation 96.2 (96.0-97.0) % ABG Base Excess 0.4 (-2-2.0) Boris Test Positive O2 Delivery Device Nasal cannula Oxygen Flow Rate 1.0 Sodium (136-145) mEq/L Potassium (3.5-5.1) mEq/L Chloride (98-107) mEq/L Carbon Dioxide (21-32) mEq/L Anion Gap (5-15) BUN (7-18) mg/dL Creatinine (0.55-1.02) mg/dL Est Cr Clr Drug Dosing mL/min Estimated GFR (MDRD) (>60) mL/min BUN/Creatinine Ratio (14-18) Glucose (80-115) mg/dL Lactic Acid (0.4-2.0) mmol/L Calcium (8.5-10.1) mg/dL Phosphorus (2.6-4.7) mg/dL Magnesium (1.8-2.4) mg/dl Ferritin (8-252) ng/ml Total Bilirubin (0.2-1.0) mg/dL AST (15-37) U/L ALT (14-59) U/L Alkaline Phosphatase (46-116) U/L Lactate Dehydrogenase (81-234) U/L Creatine Kinase (26-192) U/L C-Reactive Protein (<1.0) mg/dL NT-Pro-B Natriuret Pep (0-125) pg/mL Total Protein (6.4-8.2) g/dl Albumin (3.4-5.0) g/dl Globulin gm/dL Albumin/Globulin Ratio (1-2) Vitamin D 25-Hydroxy (30.0-100.0) ng/ml SARS Virus RNA (PCR) Positive H (NEGATIVE) 02/21/20 02/21/20 Range/Units 05:25 05:25 WBC (3.98-10.04) K/mm3 RBC (3.98-5.22) M/mm3 Hgb (11.2-15.7) gm/dl Hct (34.1-44.9) % MCV (79.4-94.8) fl MCH (25.6-32.2) pg MCHC (32.2-35.5) g/dl RDW Std Deviation (36.4-46.3) fL Plt Count (182-369) K/mm3 MPV (9.4-12.3) fl Neut % (Auto) (34.0-71.1) % Lymph % (Auto) (19.3-51.7) % [place] % (Auto) (4.7-12.5) % Eos % (Auto) (0.7-5.8) Baso % (Auto) (0.1-1.2) % Neut # (Auto) (1.56-6.13) K/mm3 Lymph # (Auto) (1.18-3.74) K/mm3 [place] # (Auto) (0.24-0.36) K/mm3 Eos # (Auto) (0.04-0.36) K/mm3 Baso # (Auto) (0.01-0.08) K/mm3 Manual Slide Review PT 10.9 (9.7-12.0) SECONDS INR 1.02 APTT 24 (22-31) SECONDS D-Dimer, Quantitative 0.73 H (0.19-0.50) mg/L Puncture Site ABG pH (7.35-7.45) ABG pCO2 (35.0-45.0) mmHg ABG pO2 (80.0-100.0) mmHg ABG HCO3 (22.0-26.0) meq/L ABG O2 Saturation (96.0-97.0) % ABG Base Excess (-2-2.0) Boris Test O2 Delivery Device Oxygen Flow Rate Sodium 137 (136-145) mEq/L Potassium 3.8 (3.5-5.1) mEq/L Chloride 100 (98-107) mEq/L Carbon Dioxide 27 (21-32) mEq/L Anion Gap 13.8 (5-15) BUN 31 H (7-18) mg/dL Creatinine 1.3 H (0.55-1.02) mg/dL Est Cr Clr Drug Dosing 32.76 mL/min Estimated GFR (MDRD) 41 (>60) mL/min BUN/Creatinine Ratio 23.8 H (14-18) Glucose 140 H (80-115) mg/dL Lactic Acid (0.4-2.0) mmol/L Calcium 9.4 (8.5-10.1) mg/dL Phosphorus 3.1 (2.6-4.7) mg/dL Magnesium 2.1 (1.8-2.4) mg/dl Ferritin (8-252) ng/ml Total Bilirubin 0.4 (0.2-1.0) mg/dL AST 22 (15-37) U/L ALT 23 (14-59) U/L Alkaline Phosphatase 43 L (46-116) U/L Lactate Dehydrogenase (81-234) U/L Creatine Kinase (26-192) U/L C-Reactive Protein 1.6 H* (<1.0) mg/dL NT-Pro-B Natriuret Pep (0-125) pg/mL Total Protein 7.7 (6.4-8.2) g/dl Albumin 3.3 L (3.4-5.0) g/dl Globulin 4.4 gm/dL Albumin/Globulin Ratio 0.8 L (1-2) Vitamin D 25-Hydroxy 10.4 L (30.0-100.0) ng/ml SARS Virus RNA (PCR) (NEGATIVE) [place] Results Last 24 Hours: Microbiology 02/20/20 22:33 Anaerobic Blood Culture - Final Blood - Venous Med Orders - Current: Current Medications Acetaminophen (Tylenol) 650 mg PO Q4H PRN PRN Reason: Pain (Mild 1-3)/fever Cholecalciferol (Vitamin D3) 10,000 unit PO DAILY [facility] Last Admin: 02/21/20 08:14 Dose: 10,000 unit Documented by: Dexamethasone (Dexamethasone) 6 mg PO Q24H [facility] Stop: 03/01/20 21:01 Last Admin: 02/20/20 23:19 Dose: 6 mg Documented by: Enoxaparin Sodium (Lovenox) 40 mg SUBCUT Q24H [facility] Famotidine (Pepcid) 20 mg PO BID [facility] Last Admin: 02/21/20 08:14 Dose: 20 mg Documented by: Ceftriaxone Sodium 2 gm/ (Sodium Chloride) 100 mls @ 200 mls/hr IV Q24H [facility] Stop: 02/25/20 21:46 Last Admin: 02/20/20 23:10 Dose: 200 mls/hr Documented by: Azithromycin 500 mg/ Sodium (Chloride) 250 mls @ 250 mls/hr IV Q24H [facility] Stop: 02/23/20 21:46 Last Admin: 02/20/20 23:19 Dose: 250 mls/hr Documented by: Metoprolol Succinate (Toprol Xl) 12.5 mg PO DAILY [facility] Rosuvastatin Calcium (Crestor) 10 mg PO BEDTIME [facility] Sodium Chloride (Saline Flush) 10 ml FLUSH ASDIRECTED PRN PRN Reason: Keep Vein Open Last Admin: 02/20/20 18:08 Dose: 10 ml Documented by: Discontinued Medications Enoxaparin Sodium (Lovenox) 40 mg SUBCUT DAILY [facility] Last Admin: 02/21/20 12:23 Dose: Not Given Documented by: Sodium Chloride (Normal Saline) 500 mls @ 1,000 mls/hr IV .BOLUS ONE Stop: 02/20/20 20:17 Last Admin: 02/20/20 20:14 Dose: 1,000 mls/hr Documented by: Potassium Chloride (Klor-Con M20) 20 meq PO ONETIME ONE Stop: 02/20/20 21:35 Last Admin: 02/20/20 23:19 Dose: 20 meq Documented by: - Exam Quality Assessment: Supplemental Oxygen General: Alert HEENT: Pupils Equal, Mucous Membr. Moist/[place] Neck: Supple Lungs: Clear to Auscultation, Normal Respiratory Effort Cardiovascular: Regular Rate, Regular Rhythm GI/Abdominal Exam: Normal Bowel Sounds, Soft, Non-Tender, No Distention Extremities: Normal Inspection, Non-Tender, No Pedal Edema, Normal Capillary Refill Skin: Warm, Dry, Intact Psy/Mental Status: Alert, Normal Affect, Normal Mood Sepsis Event Note - Evaluation Sepsis Screening Result: No Definite Risk - Focused Exam Vital Signs: Vital Signs Temp Pulse Resp BP Pulse Ox 02/21/20 12:40 97.5 F 58 L 20 113/62 97 02/21/20 08:21 97.5 F 57 L 16 142/94 H 93 L 02/21/20 04:18 97.7 F 62 22 H 137/86 94 L - Problem List & Annotations (1) COVID-19 SNOMED Code(s): 764037304 Code(s): U07.1 - COVID-19 Status: Acute Current Visit: Yes (2) Hypoxia SNOMED Code(s): 537126383 Code(s): R09.02 - HYPOXEMIA Status: Acute Current Visit: Yes (3) Renal insufficiency SNOMED Code(s): 460959330, 636184792 Code(s): N28.9 - DISORDER OF KIDNEY AND URETER, UNSPECIFIED Status: Acute Current Visit: Yes (4) Low vitamin D level SNOMED Code(s): 188297314 Code(s): R79.89 - OTHER SPECIFIED ABNORMAL FINDINGS OF BLOOD CHEMISTRY Status: Acute Current Visit: Yes - Problem List Review Problem List Initiated/Reviewed/Updated: Yes - My Orders Last 24 Hours: My Active Orders 02/20/20 18:35 PROCALCITONIN [REF] Routine 02/20/20 21:00 dexAMETHasone 6 mg PO Q24H 02/20/20 21:29 Oxygen Therapy [RC] PRN Up ad Kristina [RC] ASDIRECTED VTE/DVT Education [RC] PER UNIT ROUTINE Vital Signs [RC] Q4HR Acetaminophen [TylenoL] 650 mg PO Q4H PRN 02/20/20 21:38 Blood Culture x2 Reflex Set [OM.PC] Stat 02/20/20 21:45 Azithromycin [Zithromax] 500 mg Sodium Chloride 0.9% [Normal Saline] 250 ml IV Q24H cefTRIAXone [Rocephin] 2 gm Sodium Chloride 0.9% [Normal Saline] 100 ml IV Q24H 02/20/20 22:33 CULTURE BLOOD [BC] Stat 02/20/20 22:39 CULTURE BLOOD [BC] Stat 02/21/20 00:30 Code Status [Resuscitation Status] Routine 02/21/20 Breakfast Regular Diet [DIET] 02/21/20 07:40 Admission Status [Patient Status] [ADT] Routine 02/21/20 09:00 Cholecalciferol (Vitamin D3) [Vitamin D3] 10,000 unit PO DAILY Famotidine [Pepcid] 20 mg PO BID 02/21/20 14:30 Metoprolol Succinate [Toprol XL] 12.5 mg PO DAILY 02/21/20 21:00 Enoxaparin [Lovenox] 40 mg SUBCUT Q24H Rosuvastatin [Crestor] 10 mg PO BEDTIME 02/22/20 05:11 C-REACTIVE PROTEIN [CHEM] AM CBC WITH AUTO DIFF [HEME] AM COMPREHENSIVE METABOLIC PN,CMP [CHEM] AM D Dimer [D-DIMER QUANTITATIVE] [COAG] AM MAGNESIUM [CHEM] AM PHOSPHORUS [CHEM] AM 02/23/20 05:11 C-REACTIVE PROTEIN [CHEM] AM CBC WITH AUTO DIFF [HEME] AM COMPREHENSIVE METABOLIC PN,CMP [CHEM] AM D Dimer [D-DIMER QUANTITATIVE] [COAG] AM MAGNESIUM [CHEM] AM PHOSPHORUS [CHEM] AM - Assessment Assessment:: Assessment of admission Severe COVID-19 infection with hypoxemia and pneumonia * Home saturations of 86% and room air at the emergency department 88%. * Currently on 1 L nasal cannula with saturations in the low 90s. * WBC 5.38, C-reactive protein 2.1, d-dimer 0.77, Lactic acid 1.0 * ABG: pH 7.4, PaO2 84 on 1 L nasal cannula Hypokalemia * Patient is on hydrochlorothiazide and has diarrhea likely the cause of the hypokalemia. * Potassium slightly low at 3.4 Hypertension/hyperlipidemia -chronic * Home meds include losartan/hydrochlorothiazide 100/12.5, Toprol XL 12.5 daily, and simvastatin 20 mg daily 02/21/2020 No change in symptoms overnight. Saturations this morning off of room air were 84%. Still requiring 1 L nasal cannula. Laboratory studies show no significant change. White count is 3.5, d-dimer 0.73, C-reactive protein 1.6. Vitamin D was low at 10.4. Potassium has improved to 3.8. Blood pressure ranges from 120s to 140s systolic. - Plan Plan:: 02/20/2020day of admission Plan * Admit to medical floor on telemetry and continuous pulse oximetry * Start dexamethasone 6 mg daily for 10 days * Rocephin 2 g every 24 hours x5 days * Azithromycin 500 mg every 24 hours x3 days * Supplement potassium. * Switch simvastatin to Crestor secondary to potential interactions of simvastatin and azithromycin. * Hold losartan/hydrochlorothiazide * Continue Toprol-XL 12.5 mg daily * Consider remdesivir, Actemra, and convalescent plasma if oxygen requirements increase * FiO2 to keep SPO2 between 88 and 95%. * Follow CBC, CMP, magnesium, d-dimer, CRP * VTE prophylaxis with Lovenox * CODE STATUS: Full code * Disposition admit to hospital on strict isolation. Length of stay likely 4 to 8 days. 02/21/2020 * Continue dexamethasone, day 2 of 10; Rocephin, day 2 of 5; azithromycin day 2 of 3 * Start vitamin D3 10,000 units daily. People with low vitamin D appear to have worse outcomes. * Monitor blood pressure. * FiO2 to keep SPO2 greater than 88 and less than 96 * CBC, CMP, d-dimer, magnesium, phosphorus, and CRP in the morning. * Procalcitonin pending * Blood cultures pending * Continue strict isolation.
[2020-02-21] MEDS: Metoprolol Succinate 25 MG Tab.ER PO SCH (16:20)
[2020-02-21] MEDS: Dexamethasone 4 MG Tab PO SCH (20:52)
[2020-02-21] MEDS: cefTRIAXone 2 GM in Sodium Chloride 0.9% 100 ML IV SCH (20:52)
[2020-02-21] MEDS: Enoxaparin 40 MG/0.4 ML Syringe SUBCUT SCH (20:53)
[2020-02-21] MEDS: Rosuvastatin 10 MG Tab PO SCH (20:53)
[2020-02-21] MEDS: Azithromycin 500 MG in Sodium Chloride 0.9% 250 ML IV SCH (21:25)
[2020-02-22] MEDS ORDERED: REMDESIVIR 200 MG in Sodium Chloride 0.9% 250 ML IV ONE ×5 (06:50→08:00)
--- NOTE | 2020-02-22 06:55 | PCM.SN.2 ---
- Free Text/Narrative Note: Varsha requiring 2 L NC this morning. I spoke with who agreed to remdesivir recognizing it is not FDA approve and we are using it on the emergency authorization protocol.
[2020-02-22] MEDS: Metoprolol Succinate 25 MG Tab.ER PO SCH (09:01)
[2020-02-22] MEDS: Famotidine 20 MG Tab PO SCH ×2 (09:02→20:06)
[2020-02-22] MEDS: Cholecalciferol (Vitamin D3) 5,000 UNIT Tab PO SCH (09:04)
--- NOTE | 2020-02-22 18:28 | PCM.PN ---
- General Info Date of Service: 02/22/20 Subjective Update: Feeling a little better but not great BM 02/18 Tolerating regular diet - Patient Data Vitals - Most Recent: Last Vital Signs Temp 97.9 F 02/22/20 09:00 Pulse 56 L 02/22/20 15:25 Resp 16 02/22/20 15:25 BP 142/65 H 02/22/20 15:25 Pulse Ox 97 02/22/20 15:25 Weight - Most Recent: 97.931 kg - Exam General: Alert, Oriented, Cooperative, No Acute Distress HEENT: Pupils Equal, Pupils Reactive, EOMI, Mucous Membr. Moist/[place] Neck: Supple. No: Lymphadenopathy Lungs: Clear to Auscultation, Normal Respiratory Effort, Decreased Breath Sounds. No: Crackles, Rales, Rhonchi, Rub, Stridor, Wheezing Cardiovascular: Regular Rate, Regular Rhythm. No: Murmurs, Gallops, Rubs GI/Abdominal Exam: Normal Bowel Sounds, Soft, Non-Tender, Distended. No: Guarding, Rigid, Rebound Back Exam: Normal Inspection. No: Paraspinal Tenderness, Vertebral Tenderness Extremities: Normal Inspection, Normal Range of Motion, Non-Tender, No Pedal Edema, Normal Capillary Refill Peripheral Pulses: 2+: Radial (L), Radial (R), Dorsalis Pedis (L), Dorsalis Pedis (R) Skin: Warm, Dry Neurological: No New Focal Deficit Psy/Mental Status: Alert, Normal Affect, Normal Mood Sepsis Event Note - Evaluation Sepsis Screening Result: No Definite Risk - Problem List & Annotations (1) Pneumonia due to COVID-19 virus SNOMED Code(s): 550203065 Code(s): U07.1 - COVID-19; J12.89 - OTHER VIRAL PNEUMONIA Status: Acute Current Visit: Yes (2) Acute hypoxemic respiratory failure due to COVID-19 SNOMED Code(s): 595429833 Code(s): U07.1 - COVID-19; J96.01 - ACUTE RESPIRATORY FAILURE WITH HYPOXIA Status: Acute Current Visit: Yes (3) Obstructive sleep apnea SNOMED Code(s): 40613624 Code(s): G47.33 - OBSTRUCTIVE SLEEP APNEA (ADULT) (PEDIATRIC) Status: Acute Current Visit: Yes (4) Vitamin D deficiency SNOMED Code(s): 10830512 Code(s): E55.9 - VITAMIN D DEFICIENCY, UNSPECIFIED Status: Acute Current Visit: Yes (5) Leukopenia SNOMED Code(s): 70866041, 707311377 Code(s): D72.819 - DECREASED WHITE BLOOD CELL COUNT, UNSPECIFIED Status: Acute Current Visit: Yes (6) Acute kidney injury SNOMED Code(s): 67902857, 84090891 Code(s): N17.9 - ACUTE KIDNEY FAILURE, UNSPECIFIED Status: Acute Current Visit: Yes (7) Bradycardia SNOMED Code(s): 58539111 Code(s): R00.1 - BRADYCARDIA, UNSPECIFIED Status: Acute Current Visit: Yes (8) Constipation SNOMED Code(s): 00579053 Code(s): K59.00 - CONSTIPATION, UNSPECIFIED Status: Acute Current Visit: Yes - Problem List Review Problem List Initiated/Reviewed/Updated: Yes - Assessment Assessment:: 02/20/2020day of admission Severe COVID-19 infection with hypoxemia and pneumonia - Home saturations of 86% and room air at the emergency department 88%. - Currently on 1 L nasal cannula with saturations in the low 90s. - WBC 5.38, C-reactive protein 2.1, d-dimer 0.77, Lactic acid 1.0 - ABG: pH 7.4, PaO2 84 on 1 L nasal cannula Hypokalemia - Patient is on hydrochlorothiazide and has diarrhea likely the cause of the hypokalemia. - Potassium slightly low at 3.4 Hypertension/hyperlipidemia -chronic - Home meds include losartan/hydrochlorothiazide 100/12.5, Toprol XL 12.5 daily, and simvastatin 20 mg daily 02/21/2020 No change in symptoms overnight. Saturations this morning off of room air were 84%. Still requiring 1 L nasal cannula. Laboratory studies show no significant change. White count is 3.5, d-dimer 0.73, C-reactive protein 1.6. Vitamin D was low at 10.4. Potassium has improved to 3.8. Blood pressure ranges from 120s to 140s systolic. PLAN - Continue dexamethasone, day 2 of 10; Rocephin, day 2 of 5; azithromycin day 2 of 3 - Start vitamin D3 10,000 units daily. People with low vitamin D appear to have worse outcomes. - Monitor blood pressure. - FiO2 to keep SPO2 greater than 88 and less than 96 - CBC, CMP, d-dimer, magnesium, phosphorus, and CRP in the morning. - Procalcitonin pending - Blood cultures pending - Continue strict isolation. 02/21/30 Increased appetite Had to increase NC to 2LPM temporarily overnight, currently on 1LPM VS trend - BP: 113-144/60-94 - Tmax 97.7 - HR 53-62 - SatO2 > 91% Labs - WBC up from 3.5 to 4.52 - DD up from 0.73 to 2.82 - GFR up from 41 to 55 - CRP down from 1.6 to 0.8 - Plan Plan:: Pneumonia due to COVID-19 virus Acute hypoxemic respiratory failure due to COVID-19 Obstructive sleep apnea - Started Remdesivir today - Day 3 of Rocephin and azithromycin - Continue O2 supplementation and taper as tolerated Acute kidney injury, improved - Monitor urine output - Renally dosed medications - Repeat labs as needed Asymptomatic bradycardia - Monitor Constipation - Start Senna BID Vitamin D deficiency - Continue supplementation Leukopenia, resolved PROPHYLAXIS DVT- Lovenox GI- not indicated CODE STATUS: FULL CODE DISPOSITION: Patient will remain admitted to complete Remdesivir course and be weaned off O2 supplementation.
[2020-02-22] MEDS: Enoxaparin 40 MG/0.4 ML Syringe SUBCUT SCH (20:05)
[2020-02-22] MEDS: Dexamethasone 4 MG Tab PO SCH (20:05)
[2020-02-22] MEDS: Sennosides 8.6 MG Tab PO SCH (20:06)
[2020-02-22] MEDS: Rosuvastatin 10 MG Tab PO SCH (20:06)
[2020-02-22] MEDS: cefTRIAXone 2 GM in Sodium Chloride 0.9% 100 ML IV SCH ×2 (20:19→21:16)
[2020-02-22] MEDS: Azithromycin 500 MG in Sodium Chloride 0.9% 250 ML IV SCH (21:16)
[2020-02-23] MEDS ORDERED: REMDESIVIR 100 MG in Sodium Chloride 0.9% 100 ML IV SCH (09:00)
[2020-02-23] MEDS: Cholecalciferol (Vitamin D3) 5,000 UNIT Tab PO SCH (09:36)
[2020-02-23] MEDS: Famotidine 20 MG Tab PO SCH ×2 (09:36→20:48)
[2020-02-23] MEDS: Metoprolol Succinate 25 MG Tab.ER PO SCH (09:38)
[2020-02-23] MEDS: Sennosides 8.6 MG Tab PO SCH ×2 (10:00→20:48)
[2020-02-23] MEDS ORDERED: Potassium Chloride 20 MEQ Tab.ER PO ONE (18:32)
[2020-02-23] MEDS ORDERED: Magnesium Sulfate/Water 2 GM in Premix Bag 1 BAG IV ONE ×2 (18:45→21:00)
--- NOTE | 2020-02-23 20:33 | PCM.PN ---
- General Info Date of Service: 02/23/20 Subjective Update: BM last night Tolerating diet OK Pulse ox drops to high 80's with ambulation - Patient Data Vitals - Most Recent: Last Vital Signs Temp 97.5 F 02/23/20 15:41 Pulse 50 L 02/23/20 15:41 Resp 20 02/23/20 15:41 BP 134/80 02/23/20 15:41 Pulse Ox 89 L 02/23/20 15:41 Weight - Most Recent: 99.291 kg - Exam Quality Assessment: Supplemental Oxygen General: Alert, Oriented, Cooperative, No Acute Distress HEENT: Pupils Equal, Pupils Reactive, EOMI, Mucous Membr. Moist/[place] Neck: Supple. No: Lymphadenopathy Lungs: Normal Respiratory Effort, Decreased Breath Sounds. No: Crackles, Rales, Rhonchi, Rub, Stridor, Wheezing Cardiovascular: Regular Rate, Regular Rhythm. No: Murmurs, Gallops, Rubs GI/Abdominal Exam: Normal Bowel Sounds, Soft, Non-Tender. No: Distended, Guarding, Rigid, Rebound Back Exam: Normal Inspection. No: CVA Tenderness (L), CVA Tenderness (R) Extremities: Normal Inspection, Normal Range of Motion, Non-Tender, Normal Capillary Refill, Pedal Edema Peripheral Pulses: 2+: Radial (L), Radial (R), Dorsalis Pedis (L), Dorsalis Pedis (R) Neurological: No New Focal Deficit Sepsis Event Note - Evaluation Sepsis Screening Result: No Definite Risk - Problem List & Annotations (1) Acute hypoxemic respiratory failure due to COVID-19 SNOMED Code(s): 271684264 Code(s): U07.1 - COVID-19; J96.01 - ACUTE RESPIRATORY FAILURE WITH HYPOXIA Status: Acute Current Visit: Yes (2) Acute kidney injury SNOMED Code(s): 34367978, 42268230 Code(s): N17.9 - ACUTE KIDNEY FAILURE, UNSPECIFIED Status: Acute Current Visit: Yes (3) Bradycardia SNOMED Code(s): 54789713 Code(s): R00.1 - BRADYCARDIA, UNSPECIFIED Status: Acute Current Visit: Yes (4) Constipation SNOMED Code(s): 68678277 Code(s): K59.00 - CONSTIPATION, UNSPECIFIED Status: Acute Current Visit: Yes (5) Hypoxia SNOMED Code(s): 136553884 Code(s): R09.02 - HYPOXEMIA Status: Acute Current Visit: Yes (6) Leukopenia SNOMED Code(s): 42475332, 819351424 Code(s): D72.819 - DECREASED WHITE BLOOD CELL COUNT, UNSPECIFIED Status: Acute Current Visit: Yes (7) Obstructive sleep apnea SNOMED Code(s): 97486708 Code(s): G47.33 - OBSTRUCTIVE SLEEP APNEA (ADULT) (PEDIATRIC) Status: Acute Current Visit: Yes (8) Pneumonia due to COVID-19 virus SNOMED Code(s): 235996306 Code(s): U07.1 - COVID-19; J12.89 - OTHER VIRAL PNEUMONIA Status: Acute Current Visit: Yes (9) Vitamin D deficiency SNOMED Code(s): 70931150 Code(s): E55.9 - VITAMIN D DEFICIENCY, UNSPECIFIED Status: Acute Current Visit: Yes (10) Hypomagnesemia SNOMED Code(s): 830448958 Code(s): E83.42 - HYPOMAGNESEMIA Status: Acute Current Visit: Yes - Problem List Review Problem List Initiated/Reviewed/Updated: Yes - Assessment Assessment:: 02/20/2020day of admission Severe COVID-19 infection with hypoxemia and pneumonia - Home saturations of 86% and room air at the emergency department 88%. - Currently on 1 L nasal cannula with saturations in the low 90s. - WBC 5.38, C-reactive protein 2.1, d-dimer 0.77, Lactic acid 1.0 - ABG: pH 7.4, PaO2 84 on 1 L nasal cannula Hypokalemia - Patient is on hydrochlorothiazide and has diarrhea likely the cause of the hypokalemia. - Potassium slightly low at 3.4 Hypertension/hyperlipidemia -chronic - Home meds include losartan/hydrochlorothiazide 100/12.5, Toprol XL 12.5 daily, and simvastatin 20 mg daily 02/21/2020 No change in symptoms overnight. Saturations this morning off of room air were 84%. Still requiring 1 L nasal cannula. Laboratory studies show no significant change. White count is 3.5, d-dimer 0.73, C-reactive protein 1.6. Vitamin D was low at 10.4. Potassium has improved to 3.8. Blood pressure ranges from 120s to 140s systolic. PLAN - Continue dexamethasone, day 2 of 10; Rocephin, day 2 of 5; azithromycin day 2 of 3 - Start vitamin D3 10,000 units daily. People with low vitamin D appear to have worse outcomes. - Monitor blood pressure. - FiO2 to keep SPO2 greater than 88 and less than 96 - CBC, CMP, d-dimer, magnesium, phosphorus, and CRP in the morning. - Procalcitonin pending - Blood cultures pending - Continue strict isolation. 02/21/30 Increased appetite Had to increase NC to 2LPM temporarily overnight, currently on 1LPM VS trend - BP: 113-144/60-94 - Tmax 97.7 - HR 53-62 - SatO2 > 91% Labs - WBC up from 3.5 to 4.52 - DD up from 0.73 to 2.82 - GFR up from 41 to 55 - CRP down from 1.6 to 0.8 PLAN - Started Remdesivir today - Day 3 of Rocephin and azithromycin - Continue O2 supplementation and taper as tolerated - Start Senna BID Patient will remain admitted to complete Remdesivir course and be weaned off O2 supplementation. 02/22/30 Had a BM last night VS trend - BP trend 117-142/57-89 - Tmax 98.9 - HR 51-56 - SatO2 >93% Intake and output - UO 1,800 - Balance 24h: +330 - Balance since admission: +650 Labs - DD down from 2.82 to 2.22 - GFR stable at 55 - Mg 1.6 - CRP down from 0.8 to 0.5 - Plan Plan:: Pneumonia due to COVID-19 virus Acute hypoxemic respiratory failure due to COVID-19 Obstructive sleep apnea - Continue Remdesivir day 2 - Continue Dexamethasone day 2 - Continue O2 supplementation and taper as tolerated Acute kidney injury, improved Hypomagnesemia - Replace Mg with 4gIV - Give 40mEq PO x 1 dose - Monitor urine output - Renally dosed medications - Repeat labs as needed Asymptomatic bradycardia - Monitor Constipation - Continue Senna BID Vitamin D deficiency - Continue supplementation Leukopenia, resolved PROPHYLAXIS DVT- Lovenox GI- not indicated CODE STATUS: FULL CODE DISPOSITION: Patient will remain admitted to complete Remdesivir course and be weaned off O2 supplementation.
[2020-02-23] MEDS: cefTRIAXone 2 GM in Sodium Chloride 0.9% 100 ML IV SCH (20:46)
[2020-02-23] MEDS: Dexamethasone 4 MG Tab PO SCH (20:48)
[2020-02-23] MEDS: Rosuvastatin 10 MG Tab PO SCH (20:48)
[2020-02-23] MEDS: Enoxaparin 40 MG/0.4 ML Syringe SUBCUT SCH (20:48)
[2020-02-24] MEDS: Cholecalciferol (Vitamin D3) 5,000 UNIT Tab PO SCH (08:33)
[2020-02-24] MEDS: Metoprolol Succinate 25 MG Tab.ER PO SCH (08:34)
[2020-02-24] MEDS: Famotidine 20 MG Tab PO SCH ×2 (08:35→21:05)
[2020-02-24] MEDS: Sennosides 8.6 MG Tab PO SCH ×2 (08:35→21:06)
[2020-02-24] MEDS: REMDESIVIR 100 MG in Sodium Chloride 0.9% 100 ML IV SCH (09:18)
--- NOTE | 2020-02-24 18:50 | PCM.PN ---
- General Info Date of Service: 02/24/20 Subjective Update: BM today Tolerating diet Still dropping sats on exertion - Patient Data Vitals - Most Recent: Last Vital Signs Temp 97.5 F 02/24/20 16:01 Pulse 76 02/24/20 16:01 Resp 20 02/24/20 16:01 BP 138/61 02/24/20 16:01 Pulse Ox 93 L 02/24/20 16:01 Weight - Most Recent: 99.246 kg - Exam Quality Assessment: Supplemental Oxygen General: Alert, Oriented, Cooperative, No Acute Distress HEENT: Pupils Equal, Pupils Reactive, EOMI, Mucous Membr. Moist/[place] Neck: Supple. No: Lymphadenopathy Lungs: Clear to Auscultation, Normal Respiratory Effort, Decreased Breath Sounds. No: Crackles, Rales, Rhonchi, Rub, Wheezing Cardiovascular: Regular Rate, Regular Rhythm. No: Murmurs, Gallops, Rubs GI/Abdominal Exam: Normal Bowel Sounds, Soft, Non-Tender, Distended. No: Guarding, Rigid Back Exam: Normal Inspection, Full Range of Motion. No: CVA Tenderness (L), CVA Tenderness (R) Peripheral Pulses: 2+: Radial (L), Radial (R), Dorsalis Pedis (L), Dorsalis Pedis (R) Skin: Warm, Dry, Intact Neurological: No New Focal Deficit Psy/Mental Status: Normal Affect, Normal Mood Sepsis Event Note - Evaluation Sepsis Screening Result: No Definite Risk - Problem List & Annotations (1) Acute hypoxemic respiratory failure due to COVID-19 SNOMED Code(s): 165137500 Code(s): U07.1 - COVID-19; J96.01 - ACUTE RESPIRATORY FAILURE WITH HYPOXIA Status: Acute Current Visit: Yes (2) Acute kidney injury SNOMED Code(s): 26371577, 21302260 Code(s): N17.9 - ACUTE KIDNEY FAILURE, UNSPECIFIED Status: Acute Current Visit: Yes (3) Bradycardia SNOMED Code(s): 28758350 Code(s): R00.1 - BRADYCARDIA, UNSPECIFIED Status: Acute Current Visit: Yes (4) Constipation SNOMED Code(s): 69447429 Code(s): K59.00 - CONSTIPATION, UNSPECIFIED Status: Acute Current Visit: Yes (5) Hypomagnesemia SNOMED Code(s): 478181024 Code(s): E83.42 - HYPOMAGNESEMIA Status: Acute Current Visit: Yes (6) Hypoxia SNOMED Code(s): 372396484 Code(s): R09.02 - HYPOXEMIA Status: Acute Current Visit: Yes (7) Leukopenia SNOMED Code(s): 43044322, 928593047 Code(s): D72.819 - DECREASED WHITE BLOOD CELL COUNT, UNSPECIFIED Status: Acute Current Visit: Yes (8) Obstructive sleep apnea SNOMED Code(s): 22980743 Code(s): G47.33 - OBSTRUCTIVE SLEEP APNEA (ADULT) (PEDIATRIC) Status: Acute Current Visit: Yes (9) Pneumonia due to COVID-19 virus SNOMED Code(s): 406685354 Code(s): U07.1 - COVID-19; J12.89 - OTHER VIRAL PNEUMONIA Status: Acute Current Visit: Yes (10) Vitamin D deficiency SNOMED Code(s): 29202872 Code(s): E55.9 - VITAMIN D DEFICIENCY, UNSPECIFIED Status: Acute Current Visit: Yes - Problem List Review Problem List Initiated/Reviewed/Updated: Yes - Assessment Assessment:: 02/20/2020day of admission Severe COVID-19 infection with hypoxemia and pneumonia - Home saturations of 86% and room air at the emergency department 88%. - Currently on 1 L nasal cannula with saturations in the low 90s. - WBC 5.38, C-reactive protein 2.1, d-dimer 0.77, Lactic acid 1.0 - ABG: pH 7.4, PaO2 84 on 1 L nasal cannula Hypokalemia - Patient is on hydrochlorothiazide and has diarrhea likely the cause of the hypokalemia. - Potassium slightly low at 3.4 Hypertension/hyperlipidemia -chronic - Home meds include losartan/hydrochlorothiazide 100/12.5, Toprol XL 12.5 daily, and simvastatin 20 mg daily 02/21/2020 No change in symptoms overnight. Saturations this morning off of room air were 84%. Still requiring 1 L nasal cannula. Laboratory studies show no significant change. White count is 3.5, d-dimer 0.73, C-reactive protein 1.6. Vitamin D was low at 10.4. Potassium has improved to 3.8. Blood pressure ranges from 120s to 140s systolic. PLAN - Continue dexamethasone, day 2 of 10; Rocephin, day 2 of 5; azithromycin day 2 of 3 - Start vitamin D3 10,000 units daily. People with low vitamin D appear to have worse outcomes. - Monitor blood pressure. - FiO2 to keep SPO2 greater than 88 and less than 96 - CBC, CMP, d-dimer, magnesium, phosphorus, and CRP in the morning. - Procalcitonin pending - Blood cultures pending - Continue strict isolation. 02/21/30 Increased appetite Had to increase NC to 2LPM temporarily overnight, currently on 1LPM VS trend - BP: 113-144/60-94 - Tmax 97.7 - HR 53-62 - SatO2 > 91% Labs - WBC up from 3.5 to 4.52 - DD up from 0.73 to 2.82 - GFR up from 41 to 55 - CRP down from 1.6 to 0.8 PLAN - Started Remdesivir today - Day 3 of Rocephin and azithromycin - Continue O2 supplementation and taper as tolerated - Start Senna BID Patient will remain admitted to complete Remdesivir course and be weaned off O2 supplementation. 02/22/30 Had a BM last night VS trend - BP trend 117-142/57-89 - Tmax 98.9 - HR 51-56 - SatO2 >93% Intake and output - UO 1,800 - Balance 24h: +330 - Balance since admission: +650 Labs - DD down from 2.82 to 2.22 - GFR stable at 55 - Mg 1.6 - CRP down from 0.8 to 0.5 PLAN - Continue Remdesivir day 2 - Continue Dexamethasone day 2 - Continue O2 supplementation and taper as tolerated - Replace Mg with 4gIV - Give 40mEq PO x 1 dose 02/24/20 Had an OK night Feeling a lot better VS trend - BP trend 134-148/70-97 - Tmax 98.8 - HR 41-58 - SatO2 > 89% on 1LPM NC Intake and output - UO 900 - Balance 24h: +1,530 - Balance since admission: +2,180 Labs - DD up from 2.22 to 2.45 - GFR stable at 55 - Mg up from 1.6 to 2.2 - CRP down from 0.5 to 0.5 - Blood cultures negative x 3 days - Plan Plan:: Pneumonia due to COVID-19 virus Acute hypoxemic respiratory failure due to COVID-19 Obstructive sleep apnea - Continue Remdesivir day 3 - Continue Dexamethasone day 3 - Continue O2 supplementation and taper as tolerated Acute kidney injury, stable - Monitor urine output - Renally dosed medications - Repeat labs as needed Asymptomatic bradycardia - Monitor Constipation - Continue Senna BID PRN Vitamin D deficiency - Continue supplementation Leukopenia, resolved Hypomagnesemia, resolved PROPHYLAXIS DVT- Lovenox GI- not indicated CODE STATUS: FULL CODE DISPOSITION: Patient will remain admitted to complete Remdesivir course and be weaned off O2 supplementation.
[2020-02-24] MEDS: Dexamethasone 4 MG Tab PO SCH (21:05)
[2020-02-24] MEDS: Enoxaparin 40 MG/0.4 ML Syringe SUBCUT SCH (21:05)
[2020-02-24] MEDS: Rosuvastatin 10 MG Tab PO SCH (21:05)
[2020-02-24] MEDS: cefTRIAXone 2 GM in Sodium Chloride 0.9% 100 ML IV SCH (21:06)
[2020-02-25] MEDS: Cholecalciferol (Vitamin D3) 5,000 UNIT Tab PO SCH (09:10)
[2020-02-25] MEDS: Sennosides 8.6 MG Tab PO SCH ×2 (09:10→20:22)
[2020-02-25] MEDS: Famotidine 20 MG Tab PO SCH ×2 (09:10→20:21)
[2020-02-25] MEDS: Metoprolol Succinate 25 MG Tab.ER PO SCH ×2 (09:12→10:58)
[2020-02-25] MEDS: REMDESIVIR 100 MG in Sodium Chloride 0.9% 100 ML IV SCH (09:14)
[2020-02-25] MEDS: Enoxaparin 40 MG/0.4 ML Syringe SUBCUT SCH (20:20)
[2020-02-25] MEDS: Rosuvastatin 10 MG Tab PO SCH (20:21)
[2020-02-25] MEDS: Dexamethasone 4 MG Tab PO SCH (20:21)
[2020-02-26] MEDS: Famotidine 20 MG Tab PO SCH (08:53)
[2020-02-26] MEDS: Sennosides 8.6 MG Tab PO SCH (08:53)
[2020-02-26] MEDS: Cholecalciferol (Vitamin D3) 5,000 UNIT Tab PO SCH (08:53)
[2020-02-26] MEDS: Metoprolol Succinate 25 MG Tab.ER PO SCH (08:54)
[2020-02-26] MEDS: REMDESIVIR 100 MG in Sodium Chloride 0.9% 100 ML IV SCH (08:55)
--- NOTE | 2020-02-26 11:20 | PCM.PN ---
- General Info Date of Service: 02/25/20 Subjective Update: Tolerating diet Slept OK No complaints and states she feels much better - Exam Quality Assessment: Supplemental Oxygen General: Alert, Oriented, Cooperative, No Acute Distress HEENT: Pupils Equal, Pupils Reactive, EOMI, Mucous Membr. Moist/[place] Neck: Supple. No: Lymphadenopathy Lungs: Clear to Auscultation, Normal Respiratory Effort, Decreased Breath Sounds. No: Crackles, Rales, Rhonchi, Rub, Stridor, Wheezing Cardiovascular: Regular Rate, Regular Rhythm. No: Murmurs, Gallops, Rubs GI/Abdominal Exam: Normal Bowel Sounds, Soft, Non-Tender, Distended. No: Guarding, Rigid, Rebound Back Exam: Normal Inspection. No: CVA Tenderness (L), CVA Tenderness (R), Paraspinal Tenderness, Vertebral Tenderness Extremities: Normal Inspection, Normal Range of Motion, Non-Tender, No Pedal Edema, Normal Capillary Refill Peripheral Pulses: 0: Dorsalis Pedis (R), 2+: Radial (L), Radial (R), Dorsalis Pedis (L) Skin: Warm, Dry, Intact Neurological: No New Focal Deficit Psy/Mental Status: Normal Affect, Normal Mood Sepsis Event Note - Evaluation Sepsis Screening Result: No Definite Risk - Problem List & Annotations (1) Pneumonia due to COVID-19 virus SNOMED Code(s): 919631986 Code(s): U07.1 - COVID-19; J12.89 - OTHER VIRAL PNEUMONIA Status: Acute Current Visit: Yes (2) Acute hypoxemic respiratory failure due to COVID-19 SNOMED Code(s): 002225352 Code(s): U07.1 - COVID-19; J96.01 - ACUTE RESPIRATORY FAILURE WITH HYPOXIA Status: Acute Current Visit: Yes (3) Obstructive sleep apnea SNOMED Code(s): 31015655 Code(s): G47.33 - OBSTRUCTIVE SLEEP APNEA (ADULT) (PEDIATRIC) Status: Acute Current Visit: Yes (4) Vitamin D deficiency SNOMED Code(s): 74382494 Code(s): E55.9 - VITAMIN D DEFICIENCY, UNSPECIFIED Status: Acute Current Visit: Yes (5) Leukopenia SNOMED Code(s): 00928604, 712257037 Code(s): D72.819 - DECREASED WHITE BLOOD CELL COUNT, UNSPECIFIED Status: Acute Current Visit: Yes (6) Acute kidney injury SNOMED Code(s): 41284974, 36096226 Code(s): N17.9 - ACUTE KIDNEY FAILURE, UNSPECIFIED Status: Acute Current Visit: Yes (7) Bradycardia SNOMED Code(s): 23748248 Code(s): R00.1 - BRADYCARDIA, UNSPECIFIED Status: Acute Current Visit: Yes (8) Constipation SNOMED Code(s): 64560229 Code(s): K59.00 - CONSTIPATION, UNSPECIFIED Status: Acute Current Visit: Yes - Problem List Review Problem List Initiated/Reviewed/Updated: Yes - Assessment Assessment:: 02/20/2020day of admission Severe COVID-19 infection with hypoxemia and pneumonia - Home saturations of 86% and room air at the emergency department 88%. - Currently on 1 L nasal cannula with saturations in the low 90s. - WBC 5.38, C-reactive protein 2.1, d-dimer 0.77, Lactic acid 1.0 - ABG: pH 7.4, PaO2 84 on 1 L nasal cannula Hypokalemia - Patient is on hydrochlorothiazide and has diarrhea likely the cause of the hypokalemia. - Potassium slightly low at 3.4 Hypertension/hyperlipidemia -chronic - Home meds include losartan/hydrochlorothiazide 100/12.5, Toprol XL 12.5 daily, and simvastatin 20 mg daily 02/21/2020 No change in symptoms overnight. Saturations this morning off of room air were 84%. Still requiring 1 L nasal cannula. Laboratory studies show no significant change. White count is 3.5, d-dimer 0.73, C-reactive protein 1.6. Vitamin D was low at 10.4. Potassium has improved to 3.8. Blood pressure ranges from 120s to 140s systolic. PLAN - Continue dexamethasone, day 2 of 10; Rocephin, day 2 of 5; azithromycin day 2 of 3 - Start vitamin D3 10,000 units daily. People with low vitamin D appear to have worse outcomes. - Monitor blood pressure. - FiO2 to keep SPO2 greater than 88 and less than 96 - CBC, CMP, d-dimer, magnesium, phosphorus, and CRP in the morning. - Procalcitonin pending - Blood cultures pending - Continue strict isolation. 02/21/30 Increased appetite Had to increase NC to 2LPM temporarily overnight, currently on 1LPM VS trend - BP: 113-144/60-94 - Tmax 97.7 - HR 53-62 - SatO2 > 91% Labs - WBC up from 3.5 to 4.52 - DD up from 0.73 to 2.82 - GFR up from 41 to 55 - CRP down from 1.6 to 0.8 PLAN - Started Remdesivir today - Day 3 of Rocephin and azithromycin - Continue O2 supplementation and taper as tolerated - Start Senna BID Patient will remain admitted to complete Remdesivir course and be weaned off O2 supplementation. 02/22/30 Had a BM last night VS trend - BP trend 117-142/57-89 - Tmax 98.9 - HR 51-56 - SatO2 >93% Intake and output - UO 1,800 - Balance 24h: +330 - Balance since admission: +650 Labs - DD down from 2.82 to 2.22 - GFR stable at 55 - Mg 1.6 - CRP down from 0.8 to 0.5 PLAN - Continue Remdesivir day 2 - Continue Dexamethasone day 2 - Continue O2 supplementation and taper as tolerated - Replace Mg with 4gIV - Give 40mEq PO x 1 dose 02/24/20 Had an OK night Feeling a lot better VS trend - BP trend 134-148/70-97 - Tmax 98.8 - HR 41-58 - SatO2 > 89% on 1LPM NC Intake and output - UO 900 - Balance 24h: +1,530 - Balance since admission: +2,180 Labs - DD up from 2.22 to 2.45 - GFR stable at 55 - Mg up from 1.6 to 2.2 - CRP down from 0.5 to 0.5 - Blood cultures negative x 3 days PLAN - Continue Remdesivir day 3 - Continue Dexamethasone day 3 - Continue O2 supplementation and taper as tolerated 02/25/20 VS trend - BP 88-156/61-72 - Tmax 97.9 - HR 50-76 - SatO2 > 93% on 1LPM on NC Intake and output - UO 1,450 - Balance 24h: -50 - Plan Plan:: Pneumonia due to COVID-19 virus Acute hypoxemic respiratory failure due to COVID-19 Obstructive sleep apnea - Continue Remdesivir day 4 - Continue Dexamethasone day 4 - Continue O2 supplementation and taper as tolerated Acute kidney injury, stable - Monitor urine output - Renally dosed medications - Repeat labs as needed Asymptomatic bradycardia - Monitor Vitamin D deficiency - Continue supplementation Leukopenia, resolved Hypomagnesemia, resolved Constipation, resolved PROPHYLAXIS DVT- Lovenox GI- not indicated CODE STATUS: FULL CODE DISPOSITION: Patient will remain admitted to complete Remdesivir course and be weaned off O2 supplementation. Discharge in AM.
--- NOTE | 2020-02-26 11:57 | PCM.DCSUM1 ---
Discharge Summary - Hospital Course HPI Initial Comments: 69-year-old female who is currently hospitalized with a severe infection from COVID-19. 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 Patient has also complained of diarrhea. She denies any shortness of breath or cough, but her daughter who brought her in states that she has had a cough, shortness of breath, generalized weakness, and no appetite. I am the physician for her and spoke with the daughter and Varsha by video phone earlier today and recommend they get home oxygen saturation meter. At home her O2 sats were as low as 86%. When she presented to the emergency department her initial saturations were 88%. Patient and daughter deny fever, chills, nausea, or vomiting. She has a history of hypertension but no lung disease. She is also morbidly obese. Diagnosis: Stroke: No - Discharge Data Discharge Date: 02/26/20 Discharge Disposition: Home, Self-Care 01 Condition: Good - Referral to Home Health Primary Care Physician: Chloe Saldana NP - Discharge Diagnosis/Problem(s) (1) Pneumonia due to COVID-19 virus SNOMED Code(s): 892598142 ICD Code: U07.1 - COVID-19; J12.89 - OTHER VIRAL PNEUMONIA Status: Acute Current Visit: Yes (2) Acute hypoxemic respiratory failure due to COVID-19 SNOMED Code(s): 212200546 ICD Code: U07.1 - COVID-19; J96.01 - ACUTE RESPIRATORY FAILURE WITH HYPOXIA Status: Acute Current Visit: Yes (3) Obstructive sleep apnea SNOMED Code(s): 74161730 ICD Code: G47.33 - OBSTRUCTIVE SLEEP APNEA (ADULT) (PEDIATRIC) Status: Acute Current Visit: Yes (4) Vitamin D deficiency SNOMED Code(s): 80943880 ICD Code: E55.9 - VITAMIN D DEFICIENCY, UNSPECIFIED Status: Acute Current Visit: Yes (5) Leukopenia SNOMED Code(s): 84739158, 526751856 ICD Code: D72.819 - DECREASED WHITE BLOOD CELL COUNT, UNSPECIFIED Status: Acute Current Visit: Yes (6) Acute kidney injury SNOMED Code(s): 65558555, 90113744 ICD Code: N17.9 - ACUTE KIDNEY FAILURE, UNSPECIFIED Status: Acute Current Visit: Yes (7) Bradycardia SNOMED Code(s): 41623679 ICD Code: R00.1 - BRADYCARDIA, UNSPECIFIED Status: Acute Current Visit: Yes (8) Constipation SNOMED Code(s): 84769497 ICD Code: K59.00 - CONSTIPATION, UNSPECIFIED Status: Acute Current Visit: Yes - Patient Summary/Data Hospital Course: 02/20/2020day of admission Severe COVID-19 infection with hypoxemia and pneumonia - Home saturations of 86% and room air at the emergency department 88%. - Currently on 1 L nasal cannula with saturations in the low 90s. - WBC 5.38, C-reactive protein 2.1, d-dimer 0.77, Lactic acid 1.0 - ABG: pH 7.4, PaO2 84 on 1 L nasal cannula Hypokalemia - Patient is on hydrochlorothiazide and has diarrhea likely the cause of the hypokalemia. - Potassium slightly low at 3.4 Hypertension/hyperlipidemia -chronic - Home meds include losartan/hydrochlorothiazide 100/12.5, Toprol XL 12.5 daily, and simvastatin 20 mg daily 02/21/2020 No change in symptoms overnight. Saturations this morning off of room air were 84%. Still requiring 1 L nasal cannula. Laboratory studies show no significant change. White count is 3.5, d-dimer 0.73, C-reactive protein 1.6. Vitamin D was low at 10.4. Potassium has improved to 3.8. Blood pressure ranges from 120s to 140s systolic. PLAN - Continue dexamethasone, day 2 of 10; Rocephin, day 2 of 5; azithromycin day 2 of 3 - Start vitamin D3 10,000 units daily. People with low vitamin D appear to have worse outcomes. - Monitor blood pressure. - FiO2 to keep SPO2 greater than 88 and less than 96 - CBC, CMP, d-dimer, magnesium, phosphorus, and CRP in the morning. - Procalcitonin pending - Blood cultures pending - Continue strict isolation. 02/21/30 Increased appetite Had to increase NC to 2LPM temporarily overnight, currently on 1LPM VS trend - BP: 113-144/60-94 - Tmax 97.7 - HR 53-62 - SatO2 > 91% Labs - WBC up from 3.5 to 4.52 - DD up from 0.73 to 2.82 - GFR up from 41 to 55 - CRP down from 1.6 to 0.8 PLAN - Started Remdesivir today - Day 3 of Rocephin and azithromycin - Continue O2 supplementation and taper as tolerated - Start Senna BID Patient will remain admitted to complete Remdesivir course and be weaned off O2 supplementation. 02/22/30 Had a BM last night VS trend - BP trend 117-142/57-89 - Tmax 98.9 - HR 51-56 - SatO2 >93% Intake and output - UO 1,800 - Balance 24h: +330 - Balance since admission: +650 Labs - DD down from 2.82 to 2.22 - GFR stable at 55 - Mg 1.6 - CRP down from 0.8 to 0.5 PLAN - Continue Remdesivir day 2 - Continue Dexamethasone day 2 - Continue O2 supplementation and taper as tolerated - Replace Mg with 4gIV - Give 40mEq PO x 1 dose 02/24/20 Had an OK night Feeling a lot better VS trend - BP trend 134-148/70-97 - Tmax 98.8 - HR 41-58 - SatO2 > 89% on 1LPM NC Intake and output - UO 900 - Balance 24h: +1,530 - Balance since admission: +2,180 Labs - DD up from 2.22 to 2.45 - GFR stable at 55 - Mg up from 1.6 to 2.2 - CRP down from 0.5 to 0.5 - Blood cultures negative x 3 days PLAN - Continue Remdesivir day 3 - Continue Dexamethasone day 3 - Continue O2 supplementation and taper as tolerated 02/25/20 VS trend - BP 88-156/61-72 - Tmax 97.9 - HR 50-76 - SatO2 > 93% on 1LPM on NC Intake and output - UO 1,450 - Balance 24h: -50 PLAN - Continue Remdesivir day 4 - Continue Dexamethasone day 4 - Continue O2 supplementation and taper as tolerated 02/26/20 - Weaned off O2 supplementation overnight - Getting last Remdesivir today - OK to discharge VS trend - BP 129-155/51-84 - Tmax 99 - HR 46-60 - SatO2 > 95% on 0.5LPM on NC, off O2 today - Patient Instructions Diet: Usual Diet as Tolerated Activity: As Tolerated - Discharge Plan *PRESCRIPTION DRUG MONITORING PROGRAM REVIEWED*: Not Applicable *COPY OF PRESCRIPTION DRUG MONITORING REPORT IN PATIENT PATSY: Not Applicable Prescriptions/Med Rec: dexAMETHasone [Dexamethasone] 6 mg PO Q24H #5 dose Cholecalciferol (Vitamin D3) [Vitamin D3] 10,000 unit PO DAILY #60 tablet Home Medications: Home Meds Losartan/Hydrochlorothiazide [Losartan-HCTZ 100-12.5 MG] 1 tab PO DAILY 02/21/20 [History] Metoprolol Succinate [Toprol XL] 12.5 mg PO DAILY 02/21/20 [History] Simvastatin [Zocor] 20 mg PO DAILY 02/21/20 [History] Cholecalciferol (Vitamin D3) [Vitamin D3] 10,000 unit PO DAILY #60 tablet 02/26/20 [Rx] dexAMETHasone [Dexamethasone] 6 mg PO Q24H #5 dose 02/26/20 [Rx] Oxygen Therapy Mode: Room Air Patient Handouts: COVID-19, COVID-19: How to Protect Yourself and Others - CDC, Preventing Chronic Kidney Disease, Prevent the Spread of COVID-19 if You Are Sick - [facility] Referrals: Chloe Saldana NP [Primary Care Provider] - 03/04/20 1:45 pm (Please follow up with Chloe Saldana on March 05 at 1:45.) - Discharge Summary/Plan Comment DC Time >30 min.: Yes - General Info Date of Service: 02/26/20 Subjective Update: Tolerating diet BM today - Patient Data Vitals - Most Recent: Last Vital Signs Temp 97.5 F 02/26/20 11:34 Pulse 43 L 02/26/20 11:34 Resp 20 02/26/20 11:34 BP 141/67 H 02/26/20 11:34 Pulse Ox 95 02/26/20 11:34 Weight - Most Recent: 99.246 kg - Exam Quality Assessment: Denies: Supplemental Oxygen General: Reports: Alert, Oriented, Cooperative, No Acute Distress HEENT: Reports: Pupils Equal, Pupils Reactive, EOMI, Mucous Membr. Moist/[place] Neck: Reports: Supple. Denies: Lymphadenopathy Lungs: Reports: Clear to Auscultation, Normal Respiratory Effort, Decreased Breath Sounds. Denies: Crackles, Rales, Rhonchi, Rub, Stridor, Wheezing Cardiovascular: Reports: Regular Rate, Regular Rhythm. Denies: Murmurs, Gallops, Rubs GI/Abdominal Exam: Normal Bowel Sounds, Soft, Non-Tender, Distended. No: Guarding, Rigid, Rebound Back Exam: Reports: Normal Inspection. Denies: CVA Tenderness (L), CVA Tenderness (R), Paraspinal Tenderness, Vertebral Tenderness Extremities: Normal Inspection, Normal Range of Motion, Non-Tender, Normal Capillary Refill, Pedal Edema Skin: Reports: Warm, Dry, Intact Neurological: Reports: No New Focal Deficit Psy/Mental Status: Reports: Normal Affect, Normal Mood
== END 2020-02-26 13:23 | disposition home or self-care (01) | DRG 177 ==
LOC: JD.ED 16:26 → JD.MS 21:34
PROVIDERS: ADMIT Family Medicine; ATTEND Family Medicine
PROC: XW033E5 Introduction of Remdesivir Anti-infective into Peripheral Vein, Percutaneous Approach, New Technology Group 5 (ICD-10-PCS; principal; 2020-02-22)
PROC: XW033E5 Introduction of Remdesivir Anti-infective into Peripheral Vein, Percutaneous Approach, New Technology Group 5 (ICD-10-PCS; 2020-02-23)
PROC: XW033E5 Introduction of Remdesivir Anti-infective into Peripheral Vein, Percutaneous Approach, New Technology Group 5 (ICD-10-PCS; 2020-02-24)
PROC: XW033E5 Introduction of Remdesivir Anti-infective into Peripheral Vein, Percutaneous Approach, New Technology Group 5 (ICD-10-PCS; 2020-02-25)
PROC: XW033E5 Introduction of Remdesivir Anti-infective into Peripheral Vein, Percutaneous Approach, New Technology Group 5 (ICD-10-PCS; 2020-02-26)
DX: U07.1 COVID-19 (principal); R09.02 Hypoxemia; N28.9 Disorder of kidney and ureter, unspecified; H54.7 Unspecified visual loss; J96.01 Acute respiratory failure with hypoxia; J12.89 Other viral pneumonia; N17.9 Acute kidney failure, unspecified; Z68.41 Body mass index [BMI] 40.0-44.9, adult; G47.33 Obstructive sleep apnea (adult) (pediatric); E55.9 Vitamin D deficiency, unspecified; D72.819 Decreased white blood cell count, unspecified; R00.1 Bradycardia, unspecified; K59.00 Constipation, unspecified; E87.6 Hypokalemia; E78.5 Hyperlipidemia, unspecified; R41.3 Other amnesia; I10 Essential (primary) hypertension; E66.9 Obesity, unspecified; Z79.899 Other long term (current) drug therapy; Z99.81 Dependence on supplemental oxygen; Z98.890 Other specified postprocedural states
CPT/HCPCS: 36415; 36600; 71045; 80053; 82550; 82728; 82803; 83605; 83615; 83880; 84145; 85025; 85379; 86140; 96360; 99285; J7030; U0002; 80048; 82306; 83735; 84100; 84484; 85007; 85027; 85610; 85730; 87040; 94761; 99223; 99232; 99239; 99284; A9270-GY; J0456; J0696; J1650; J3475; J7050; J8540

== ENCOUNTER 2020-08-12 09:33 | Day surgery (SDC) | payer MEDICARE, OTHER ==
[2020-08-12] MEDS: Polymyxin B/Trimethoprim 10 ML Bottle EYERT SCH ×4 (09:54→11:50)
[2020-08-12] MEDS: Brimonidine 0.2% Ophth Soln 5 ML Bottle EYERT SCH ×4 (09:58→11:50)
--- NOTE | 2020-08-12 09:58 | PCM.PREANE ---
Preanesthetic Assessment - Procedure Proposed Procedure: Cataract Extraction with IOL of right eye. - Anesthesia/Transfusion/Family Hx Anesthesia History: Prior Anesthesia Without Reaction Family History of Anesthesia Reaction: No Transfusion History: Prior Transfusion Without Reaction Intubation History: Unknown - Review of Systems General: No Symptoms Pulmonary: No Symptoms Cardiovascular: No Symptoms (Elevated cholesterol, HTN, history of double aneurysm repair) Gastrointestinal: No Symptoms, Constipation Neurological: Headache (history of migraines.) Other: Reports: Easy Bruising - Physical Assessment NPO Status Date: 08/11/20 NPO Status Time: 18:30 Vital Signs: HR: 71 Sat: 98% Resp: 16 B/P: 122/83 Temp: 96.8 Height: 1.57 m Weight: 106.594 kg ASA Class: 3 Mental Status: Alert & Oriented x3 Airway Class: Mallampati = 2 Dentition: Reports: Normal Dentition, Missing Tooth/Teeth, Caries Thyro-Mental Finger Breadths: 3 Mouth Opening Finger Breadths: 3 ROM/Head Extension: Full Lungs: Clear to Auscultation, Normal Respiratory Effort Cardiovascular: Regular Rate, Regular Rhythm, No Murmurs - Allergies Allergies/Adverse Reactions: Allergies Allergy/AdvReac Type Severity Reaction Status Date / Time No Known Allergies Allergy Verified 08/11/20 14:18 - Anesthesia Plan Pre-Op Medication Ordered: Beta Nazario Beta Nazario: Metoprolol Med Last Dose Date: 08/11/20 Med Last Dose Time: 20:30 - Acknowledgements Anesthesia Type Planned: MAC Pt an Appropriate Candidate for the Planned Anesthesia: Yes Alternatives and Risks of Anesthesia Discussed w Pt/Guardian: Yes Pt/Guardian Understands and Agrees with Anesthesia Plan: Yes PreAnesthesia Questionnaire HEENT History: Reports: None, Impaired Vision Cardiovascular History: Reports: Aneurysm, Hypertension Respiratory History: Reports: None Gastrointestinal History: Reports: None CORRECTIVE AND MANUAL ARTS THERAPIST History: Reports: None Musculoskeletal History: Reports: None Neurological History: Reports: Other (See Below) Other Neuro History: brain aneurysm with repair Psychiatric History: Reports: None Endocrine/Metabolic History: Reports: Obesity/BMI 30+ Hematologic History: Reports: None Immunologic History: Reports: None Oncologic (Cancer) History: Reports: None Dermatologic History: Reports: None - Infectious Disease History Infectious Disease History: Reports: Novel Coronavirus - Past Surgical History Head Surgeries/Procedures: Reports: Other (See Below) HEENT Surgical History: Reports: None Cardiovascular Surgical History: Reports: None, Aneurysm Respiratory Surgical History: Reports: None GI Surgical History: Reports: None Female Surgical History: Reports: None Endocrine Surgical History: Reports: None Neurological Surgical History: Reports: None Musculoskeletal Surgical History: Reports: None Oncologic Surgical History: Reports: None Dermatological Surgical History: Reports: None - HOME MEDS Home Medications: Home Meds Losartan/Hydrochlorothiazide [Losartan-HCTZ 100-12.5 MG] 1 tab PO DAILY 02/21/20 [History] Metoprolol Succinate [Toprol XL] 12.5 mg PO DAILY 02/21/20 [History] Simvastatin [Zocor] 20 mg PO DAILY 02/21/20 [History] Cholecalciferol (Vitamin D3) [Vitamin D3] 10,000 unit PO DAILY #60 tablet 02/26/20 [Rx] lamoTRIgine [Subvenite] 150 mg PO DAILY 08/11/20 [History] - CURRENT (IN HOUSE) MEDS Current Meds: Current Medications Brimonidine Tartrate (Alphagan 0.2% Oph Soln) 0 ml EYERT ASDIRECTED [facility] Stop: 08/12/20 18:00 Cefuroxime Sodium (Zinacef) 0 mg EYERT ASDIRECTED [facility] Stop: 08/12/20 18:00 Lidocaine HCl (Xylocaine-Mpf 1%) 0 ml INJECT ASDIRECTED [facility] Stop: 08/12/20 18:00 Phenylephrine HCl (Abhilash-Synephrine 2.5% Ophth Soln) 0 ml EYERT ASDIRECTED [facility] Stop: 08/12/20 18:00 Pilocarpine HCl (Pilocar 4% Oph Soln) 0 ml EYERT ASDIRECTED [facility] Stop: 08/12/20 18:00 Polymyxin/Trimethoprim Sulfate (Polytrim Ophth Soln) 0 ml EYERT ASDIRECTED [facility] Stop: 08/12/20 18:00 Tetracaine HCl (Tetracaine 0.5% Steri-Unit Daar) 0 ml EYEBOTH ASDIRECTED [facility] Stop: 08/12/20 18:00 Tropicamide (Mydriacyl 1% Oph Soln) 0 ml EYERT ASDIRECTED [facility] Stop: 08/12/20 18:00
[2020-08-12] MEDS: Phenylephrine 2.5% Ophth Soln 15 ML Bot EYERT SCH ×5 (10:02→10:53)
[2020-08-12] MEDS: Tropicamide 1% Ophth Soln 15 ML Bottle EYERT SCH ×4 (10:06→10:38)
[2020-08-12] MEDS: Tetracaine HCl/PF 0.5% 4 ML Bottle EYEBOTH SCH ×3 (10:51→11:49)
[2020-08-12] MEDS: Lidocaine 1% PF 2 ML SDV INJECT SCH ×2 (11:03→11:49)
[2020-08-12] MEDS: Cefuroxime 10 MG/ML SYRINGE EYERT SCH ×2 (11:14→11:49)
[2020-08-12] MEDS: Pilocarpine 4% Ophth Soln 15 ML Bot EYERT SCH ×2 (11:15→11:50)
--- NOTE | 2020-08-12 11:18 | PCM48HPAN ---
Post Anesthesia Note - EVALUATION WITHIN 48HRS OF ANESTHETIC Vital Signs in Normal Range: Yes Patient Participated in Evaluation: Yes Respiratory Function Stable: Yes Airway Patent: Yes Cardiovascular Function Stable: Yes Hydration Status Stable: Yes Pain Control Satisfactory: Yes Nausea and Vomiting Control Satisfactory: Yes Mental Status Recovered: Yes Vital Signs: Last Vital Signs Temp 36.0 C L 08/12/20 09:45 Pulse 71 08/12/20 09:45 Resp 16 08/12/20 09:45 BP 122/83 08/12/20 09:45 Pulse Ox 98 08/12/20 09:45
== END 2020-08-12 11:37 | disposition home or self-care (01) ==
LOC: JD.SDS 09:33
PROVIDERS: ATTEND Ophthalmology
DX: H25.813 Combined forms of age-related cataract, bilateral (principal); H40.003 Preglaucoma, unspecified, bilateral; H02.834 Dermatochalasis of left upper eyelid; H02.831 Dermatochalasis of right upper eyelid; H35.373 Puckering of macula, bilateral; H16.103 Unspecified superficial keratitis, bilateral; H16.223 Keratoconjunctivitis sicca, not specified as Sjogren's, bilateral; I10 Essential (primary) hypertension; E78.00 Pure hypercholesterolemia, unspecified; Z79.899 Other long term (current) drug therapy; E66.9 Obesity, unspecified; Z68.41 Body mass index [BMI] 40.0-44.9, adult
CPT/HCPCS: J0697; V2632

== ENCOUNTER 2020-09-09 07:18 | Day surgery (SDC) | payer MEDICARE, OTHER ==
[2020-09-09] MEDS: Polymyxin B/Trimethoprim 10 ML Bottle EYELF SCH ×4 (07:21→08:44)
[2020-09-09] MEDS: Brimonidine 0.2% Ophth Soln 5 ML Bottle EYELF SCH ×4 (07:24→08:44)
[2020-09-09] MEDS: Phenylephrine 2.5% Ophth Soln 2 ML Bot EYELF SCH ×6 (07:27→08:19)
[2020-09-09] MEDS: Lidocaine 1% PF 2 ML SDV INJECT SCH ×2 (07:29→08:30)
[2020-09-09] MEDS: Tetracaine HCl/PF 0.5% 4 ML Bottle EYEBOTH SCH ×3 (07:29→08:29)
[2020-09-09] MEDS: Cefuroxime 10 MG/ML SYRINGE EYELF SCH ×2 (07:30→08:43)
[2020-09-09] MEDS: Tropicamide 1% Ophth Soln 15 ML Bottle EYELF SCH ×4 (07:30→07:53)
[2020-09-09] MEDS: Pilocarpine 4% Ophth Soln 15 ML Bot EYELF SCH ×2 (07:30→08:44)
--- NOTE | 2020-09-09 07:34 | PCM.PREANE ---
Preanesthetic Assessment - Anesthesia/Transfusion/Family Hx Anesthesia History: Prior Anesthesia Without Reaction Family History of Anesthesia Reaction: No Transfusion History: Prior Transfusion Without Reaction Intubation History: Unknown - Review of Systems General: No Symptoms Pulmonary: No Symptoms Cardiovascular: Other (HTN) Gastrointestinal: No Symptoms Neurological: No Symptoms Other: Reports: None - Physical Assessment NPO Status Date: 09/08/20 NPO Status Time: 20:00 ASA Class: 2 Mental Status: Alert & Oriented x3 Airway Class: Mallampati = 2 Dentition: Reports: Normal Dentition Thyro-Mental Finger Breadths: 3 Mouth Opening Finger Breadths: 3 ROM/Head Extension: Full Lungs: Clear to Auscultation, Normal Respiratory Effort Cardiovascular: Regular Rate, Regular Rhythm - Allergies Allergies/Adverse Reactions: Allergies Allergy/AdvReac Type Severity Reaction Status Date / Time No Known Allergies Allergy Verified 09/08/20 13:42 - Blood Blood Available: No Product(s) Available: None - Anesthesia Plan Pre-Op Medication Ordered: None Beta Nazario: Metoprolol Med Last Dose Date: 09/09/20 Med Last Dose Time: 06:00 - Acknowledgements Anesthesia Type Planned: MAC Pt an Appropriate Candidate for the Planned Anesthesia: Yes Alternatives and Risks of Anesthesia Discussed w Pt/Guardian: Yes Pt/Guardian Understands and Agrees with Anesthesia Plan: Yes PreAnesthesia Questionnaire HEENT History: Reports: None, Impaired Vision Cardiovascular History: Reports: Aneurysm, Hypertension Respiratory History: Reports: None Gastrointestinal History: Reports: None MAINTENANCE MECHANIC ENGINE History: Reports: None Musculoskeletal History: Reports: None Neurological History: Reports: Other (See Below) Other Neuro History: brain aneurysm with repair Psychiatric History: Reports: None Endocrine/Metabolic History: Reports: Obesity/BMI 30+ Hematologic History: Reports: None Immunologic History: Reports: None Oncologic (Cancer) History: Reports: None Dermatologic History: Reports: None - Infectious Disease History Infectious Disease History: Reports: Novel Coronavirus - Past Surgical History Head Surgeries/Procedures: Reports: Other (See Below) HEENT Surgical History: Reports: None Cardiovascular Surgical History: Reports: None, Aneurysm Respiratory Surgical History: Reports: None GI Surgical History: Reports: None Female Surgical History: Reports: None Endocrine Surgical History: Reports: None Neurological Surgical History: Reports: None Musculoskeletal Surgical History: Reports: None Oncologic Surgical History: Reports: None Dermatological Surgical History: Reports: None - HOME MEDS Home Medications: Home Meds Losartan/Hydrochlorothiazide [Losartan-HCTZ 100-12.5 MG] 1 tab PO DAILY 02/21/20 [History] Metoprolol Succinate [Toprol XL] 12.5 mg PO DAILY 02/21/20 [History] Simvastatin [Zocor] 20 mg PO DAILY 02/21/20 [History] Cholecalciferol (Vitamin D3) [Vitamin D3] 10,000 unit PO DAILY #60 tablet 02/26/20 [Rx] lamoTRIgine [Subvenite] 150 mg PO DAILY 08/11/20 [History] - CURRENT (IN HOUSE) MEDS Current Meds: Current Medications Brimonidine Tartrate (Brimonidine 0.2% Ophth Soln 5 Ml Bottle) 0 ml EYELF ASDIRECTED [facility] Stop: 09/09/20 18:00 Last Admin: 09/09/20 07:24 Dose: 1 drop Documented by: Cefuroxime Sodium (Cefuroxime 10 Mg/Ml Syringe) 0 mg EYELF ASDIRECTED [facility] Stop: 09/09/20 18:00 Lidocaine HCl (Lidocaine 1% Pf 2 Ml Sdv) 0 ml INJECT ASDIRECTED [facility] Stop: 09/09/20 18:00 Last Admin: 09/09/20 07:29 Dose: 1 ml Documented by: Phenylephrine HCl (Phenylephrine 2.5% Ophth Soln 2 Ml Bot) 0 ml EYELF ASDIRECTED [facility] Stop: 09/09/20 18:00 Last Admin: 09/09/20 07:29 Dose: 1 ml Documented by: Pilocarpine HCl (Pilocarpine 4% Ophth Soln 15 Ml Bot) 0 ml EYELF ASDIRECTED [facility] Stop: 09/09/20 18:00 Polymyxin/Trimethoprim Sulfate (Polymyxin B/Trimethoprim 10 Ml Bottle) 0 ml EYELF ASDIRECTED [facility] Stop: 09/09/20 18:00 Last Admin: 09/09/20 07:21 Dose: 1 drop Documented by: Tetracaine HCl (Tetracaine Hcl/Pf 0.5% 4 Ml Bottle) 0 ml EYEBOTH ASDIRECTED [facility] Stop: 09/09/20 18:00 Last Admin: 09/09/20 07:29 Dose: 1 ml Documented by: Tropicamide (Tropicamide 1% Ophth Soln 15 Ml Bottle) 0 ml EYELF ASDIRECTED [facility] Stop: 09/09/20 18:00 Last Admin: 09/09/20 07:30 Dose: 1 drop Documented by:
--- NOTE | 2020-09-09 08:47 | PCM48HPAN ---
Post Anesthesia Note - EVALUATION WITHIN 48HRS OF ANESTHETIC Vital Signs in Normal Range: Yes Patient Participated in Evaluation: Yes Respiratory Function Stable: Yes Airway Patent: Yes Cardiovascular Function Stable: Yes Hydration Status Stable: Yes Pain Control Satisfactory: Yes Nausea and Vomiting Control Satisfactory: Yes Mental Status Recovered: Yes Vital Signs: Last Vital Signs Temp 36.2 C 09/09/20 07:10 Pulse 76 09/09/20 07:10 Resp 16 09/09/20 07:10 BP 126/68 09/09/20 07:10 Pulse Ox 97 09/09/20 07:10
== END 2020-09-09 08:58 | disposition home or self-care (01) ==
LOC: JD.SDS 07:18
PROVIDERS: ATTEND Ophthalmology
DX: H25.89 Other age-related cataract (principal); H18.513 Endothelial corneal dystrophy, bilateral; H35.373 Puckering of macula, bilateral; H16.223 Keratoconjunctivitis sicca, not specified as Sjogren's, bilateral; H02.836 Dermatochalasis of left eye, unspecified eyelid; H02.833 Dermatochalasis of right eye, unspecified eyelid; H40.003 Preglaucoma, unspecified, bilateral; I10 Essential (primary) hypertension; E66.9 Obesity, unspecified; Z68.41 Body mass index [BMI] 40.0-44.9, adult; Z96.1 Presence of intraocular lens; Z86.16 Personal history of COVID-19; Z79.899 Other long term (current) drug therapy; Z98.890 Other specified postprocedural states
CPT/HCPCS: 66984; J0697; V2632

== ENCOUNTER 2020-10-10 10:09 | Emergency (ER) | payer MEDICARE, OTHER ==
[2020-10-10] MEDS ORDERED: Sodium Chloride 0.9% 10 ML Syringe FLUSH PRN (11:17)
[2020-10-10] MEDS ORDERED: Lactated Ringers 1,000 ML IV ONE (11:18)
[2020-10-10] MEDS ORDERED: Ondansetron 4 MG/2 ML SDV IVPUSH ONE (11:19)
--- NOTE | 2020-10-10 11:43 | EDM.PDOC ---
ED HPI GENERAL MEDICAL PROBLEM - General Chief Complaint: Gastrointestinal Problem Stated Complaint: VOMITING/NOT EATING Time Seen by Provider: 10/10/20 11:00 Source of Information: Reports: Patient, Family, RN Notes Reviewed History Limitations: Reports: No Limitations - History of Present Illness INITIAL COMMENTS - FREE TEXT/NARRATIVE: Patient is a 70-year-old female presenting to the emergency department with her daughter and for evaluation with regards to a 2-week history of recurrent vomiting as well as a decreased appetite for the last few months. Today, she states that she vomited a small amount after taking her pills, but has had no further vomiting since that time. She estimates that she has been vomiting once or twice a day for the last 2 weeks. She has not had much food intake. She states that she is able to keep some fluids down but often vomits after. She has no abdominal pain, diarrhea, fever, or chills. She was seen by her primary care provider on Tuesday and Tuesday of this week. On Tuesday, she was found to have a blood pressure low at 87/57 as well as elevated serum BUN and creatinine. She received IV fluids and renal ultrasound was completed. The results of the renal ultrasound were obtained from [facility] and were found to be normal. She was then seen on Tuesday and blood work was repeated. She also had a gallbladder ultrasound completed which showed cholelithiasis without secondary signs of cholecystitis. Patient has not been placed on any medication for nausea. She denies any previous abdominal surgeries. She does still have her gallbladder and her appendix. 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 Denies any recent head injuries, headaches, vision changes, or any neurologic changes from her baseline. - Related Data Allergies Allergy/AdvReac Type Severity Reaction Status Date / Time No Known Allergies Allergy Verified 10/10/20 10:35 Home Meds: Home Meds Losartan/Hydrochlorothiazide [Losartan-HCTZ 100-12.5 MG] 1 tab PO DAILY 02/21/20 [History] Metoprolol Succinate [Toprol XL] 12.5 mg PO DAILY 02/21/20 [History] Simvastatin [Zocor] 20 mg PO DAILY 02/21/20 [History] Cholecalciferol (Vitamin D3) [Vitamin D3] 10,000 unit PO DAILY #60 tablet 02/26/20 [Rx] lamoTRIgine [Subvenite] 150 mg PO DAILY 08/11/20 [History] Omeprazole 20 mg PO DAILY #30 capsule. 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 Musculoskeletal History: Reports: None Neurological History: Reports: Other (See Below) Other Neuro History: brain aneurysm with repair Psychiatric History: Reports: None Endocrine/Metabolic History: Reports: Obesity/BMI 30+ Hematologic History: Reports: None Immunologic History: Reports: None Oncologic (Cancer) History: Reports: None Dermatologic History: Reports: None - Infectious Disease History Infectious Disease History: Reports: Novel Coronavirus Other Infectious Disease History: JAN 2020 - Past Surgical History Head Surgeries/Procedures: Reports: Other (See Below) HEENT Surgical History: Reports: None Other HEENT Surgeries/Procedures: pt wears glasses and has a upper partial for two teeth Cardiovascular Surgical History: Reports: None, Aneurysm Respiratory Surgical History: Reports: None GI Surgical History: Reports: None Female Surgical History: Reports: None Endocrine Surgical History: Reports: None Neurological Surgical History: Reports: None Musculoskeletal Surgical History: Reports: None Oncologic Surgical History: Reports: None Dermatological Surgical History: Reports: None Social & Family History - Family History Family Medical History: No Pertinent Family History - Tobacco Use Tobacco Use Status *Q: Never Tobacco User - Caffeine Use Caffeine Use: Reports: Coffee, Soda, Tea - Recreational Drug Use Recreational Drug Use: No ED ROS GENERAL - Review of Systems Review Of Systems: See Below Constitutional: Reports: Decreased Appetite, Weight Loss. Denies: Fever, Chills HEENT: Reports: No Symptoms Respiratory: Reports: No Symptoms. Denies: Shortness of Breath, Cough Cardiovascular: Reports: No Symptoms, Dyspnea on Exertion. Denies: Chest Pain, Lightheadedness Endocrine: Reports: No Symptoms GI/Abdominal: Reports: Decreased Appetite, Nausea, Vomiting. Denies: Abdominal Pain, Constipation, Diarrhea : Reports: No Symptoms Musculoskeletal: Reports: No Symptoms Skin: Reports: No Symptoms Neurological: Reports: No Symptoms Psychiatric: Reports: No Symptoms Hematologic/Lymphatic: Reports: No Symptoms Immunologic: Reports: No Symptoms ED EXAM, GI/ABD - Physical Exam Exam: See Below Exam Limited By: No Limitations General Appearance: Alert, WD/WN, No Apparent Distress Respiratory/Chest: No Respiratory Distress, Lungs Clear, Normal Breath Sounds, No Accessory Muscle Use, Chest Non-Tender Cardiovascular: Normal Peripheral Pulses, Regular Rate, Rhythm, No Edema, No Gallop, No JVD, No Murmur, No Rub GI/Abdominal Exam: Normal Bowel Sounds, Soft, Non-Tender, No Organomegaly, No Distention, No Abnormal Bruit, No Mass, Pelvis Stable Neurological: Alert, Oriented, CN II-XII Intact, Normal Cognition, Normal Gait, Normal Reflexes, No Motor/Sensory Deficits Psychiatric: Normal Affect, Normal Mood Skin Exam: Warm, Dry, Intact, Normal Color, No Rash Course - Vital Signs Last Recorded V/S: Last Vital Signs Temp 98.1 F 10/10/20 14:12 Pulse 58 L 10/10/20 10:31 Resp 18 10/10/20 14:12 BP 139/86 10/10/20 14:12 Pulse Ox 95 10/10/20 14:12 - Orders/Labs/Meds Orders: Active Orders 24 hr Category Date Time Status CULTURE URINE [RM] Stat Lab 10/10/20 12:38 Received Peripheral IV Insertion Adult [OM.PC] Stat Oth 10/10/20 11:17 Ordered Labs: Laboratory Tests 10/10/20 10/10/20 10/10/20 Range/Units 11:22 11:36 12:38 WBC 7.13 (3.98-10.04) K/mm3 RBC 4.39 (3.98-5.22) M/mm3 Hgb 12.9 (11.2-15.7) gm/dl Hct 39.6 (34.1-44.9) % MCV 90.2 D (79.4-94.8) fl MCH 29.4 (25.6-32.2) pg MCHC 32.6 (32.2-35.5) g/dl RDW Std Deviation 41.0 (36.4-46.3) fL Plt Count 224 D (182-369) K/mm3 MPV 11.3 (9.4-12.3) fl Neut % (Auto) 64.4 (34.0-71.1) % Lymph % (Auto) 21.7 (19.3-51.7) % [place] % (Auto) 10.5 (4.7-12.5) % Eos % (Auto) 2.7 (0.7-5.8) Baso % (Auto) 0.6 (0.1-1.2) % Neut # (Auto) 4.59 (1.56-6.13) K/mm3 Lymph # (Auto) 1.55 (1.18-3.74) K/mm3 [place] # (Auto) 0.75 H (0.24-0.36) K/mm3 Eos # (Auto) 0.19 (0.04-0.36) K/mm3 Baso # (Auto) 0.04 (0.01-0.08) K/mm3 Sodium 141 (136-145) mEq/L Potassium 3.5 (3.5-5.1) mEq/L Chloride 99 (98-107) mEq/L Carbon Dioxide 29 (21-32) mEq/L Anion Gap 16.5 H (5-15) BUN 26 H (7-18) mg/dL Creatinine 1.6 H (0.55-1.02) mg/dL Est Cr Clr Drug Dosing 26.25 mL/min Estimated GFR (MDRD) 32 (>60) mL/min BUN/Creatinine Ratio 16.3 (14-18) Glucose 90 (80-115) mg/dL Calcium 10.0 (8.5-10.1) mg/dL Total Bilirubin 0.9 (0.2-1.0) mg/dL GGT 22 (5-55) U/L AST 24 (15-37) U/L ALT 28 (14-59) U/L Alkaline Phosphatase 46 (46-116) U/L C-Reactive Protein <0.2 (<1.0) mg/dL Total Protein 7.0 (6.4-8.2) g/dl Albumin 3.9 (3.4-5.0) g/dl Globulin 3.1 gm/dL Albumin/Globulin Ratio 1.3 (1-2) Lipase 87 (73-393) U/L Urine Color [place] H (Yellow) Urine Appearance Cloudy H (Clear) Urine pH 5.5 (5.0-8.0) Ur Specific [place] 1.025 (1.005-1.030) Urine Protein 1+ H (Negative) Urine Glucose (UA) Negative (Negative) Urine Ketones 3+ H (Negative) Urine Occult Blood Negative (Negative) Urine Nitrite Negative (Negative) Urine Bilirubin 3+ H (Negative) Urine Urobilinogen 1.0 (0.2-1.0) Ur Leukocyte Esterase 1+ H (Negative) Urine RBC 0-5 (0-5) /hpf Urine WBC 0-5 (0-5) /hpf Ur Squamous Epith Cells 0-5 (0-5) /hpf Urine Bacteria Many H (FEW) /hpf Urine Mucus Moderate H (FEW) /hpf Meds: Medications Discontinued Medications Generic Name Dose Route Start Last Admin Trade Name Freq PRN Reason Stop Dose Admin Lactated Ringer's 1,000 mls @ 999 mls/hr 10/10/20 11:18 10/10/20 11:29 Ringers, Lactated IV 10/10/20 12:18 999 mls/hr .BOLUS ONE Administration Ondansetron HCl 4 mg 10/10/20 11:19 10/10/20 11:29 Ondansetron 4 Mg/2 Ml Sdv IVPUSH 10/10/20 11:20 4 mg ONETIME ONE Administration Sodium Chloride 10 ml 10/10/20 11:17 10/10/20 11:29 Sodium Chloride 0.9% 10 Ml Syringe FLUSH 10 ml ASDIRECTED PRN Administration Keep Vein Open - Re-Assessments/Exams Free Text/Narrative Re-Assessment/Exam: Patient is a 70-year-old female presenting to the emergency department with complaints of a 2-week history of intermittent nausea and vomiting with decreased appetite which has been occurring for much longer. She was seen in the clinic earlier this week and had blood work, a renal ultrasound, and a gallbladder ultrasound completed. Results of the ultrasound were found to be overall normal. She does have some cholelithiasis but no cholecystitis. Patient has no abdominal pain associated with this. She has had no diarrhea. She is not currently on any medications for nausea. Ordered blood work, urinalysis, and a 1 L bolus of LR as well as Zofran 4 mg IV. 10/10/20 13:46 Hematology was significant for an anion gap minimally elevated at 16.5, BUN 26, creatinine 1.6. Remainder of hematology was grossly unremarkable. Lipase and liver function are normal. Urinalysis shows 1+ leukocyte esterase with many bacteria and moderate mucus. There is 0-5 WBCs and 0-5 RBCs. Patient has no urinary symptoms. I have sent urine for culture as I do not want further aggravate her nausea with an antibiotic that is not necessary. Case was discussed with her primary care, Chloe Saldana NP. I plan is to discharge her home on Zofran as well as omeprazole. She has a follow-up appointment scheduled with Chloe on Tuesday. Patient and her family are in agreement with this plan. Discharge instructions as document. Departure - Departure Time of Disposition: 13:46 Disposition: Home, Self-Care 01 Condition: Good Clinical Impression: Vomiting, Decreased appetite - Discharge Information *PRESCRIPTION DRUG MONITORING PROGRAM REVIEWED*: No *COPY OF PRESCRIPTION DRUG MONITORING REPORT IN PATIENT PATSY: No Prescriptions: Omeprazole 20 mg PO DAILY #30 capsule. Ondansetron [Zofran ODT] 4 mg PO Q6H PRN #20 tab.dis PRN Reason: Nausea/Vomiting Instructions: Nausea and Vomiting, Adult Referrals: Chloe Saldana NP [Primary Care Provider] - Forms: ED Department Discharge Additional Instructions: You were seen in the emergency department today for evaluation with regards to ongoing nausea and vomiting which has been occurring for quite some time. Work- up included blood work and urinalysis. Results your work-up show that your slightly dehydrated. You received 1 L of IV fluids as well as Zofran for nausea in the emergency department. You have been discharged home with a prescription for Zofran for nausea. Use this every 6 hours as needed for nausea. You have also been started omeprazole which is an antacid to help settle your stomach. Take these medications as prescribed. Your case was discussed with your primary care provider, Chloe Saldana NP. She will follow up with you early next week. You should experience any new or worsening symptoms of concern, please not hesitate to return to the emergency department as needed. Sepsis Event Note (ED) - Evaluation Sepsis Screening Result: No Definite Risk - Focused Exam Vital Signs: Vital Signs Temp Pulse Resp BP Pulse Ox 10/10/20 14:12 98.1 F 18 139/86 95 10/10/20 10:31 98.1 F 58 L 18 136/65 95 - My Orders Last 24 Hours: My Active Orders 10/10/20 11:17 Peripheral IV Insertion Adult [OM.PC] Stat 10/10/20 12:38 CULTURE URINE [RM] Stat - Assessment/Plan Last 24 Hours: My Active Orders 10/10/20 11:17 Peripheral IV Insertion Adult [OM.PC] Stat 10/10/20 12:38 CULTURE URINE [RM] Stat
== END 2020-10-10 14:11 | disposition home or self-care (01) ==
LOC: JD.ED 10:09
DX: R63.8 Other symptoms and signs concerning food and fluid intake (principal); R11.2 Nausea with vomiting, unspecified; I10 Essential (primary) hypertension; E66.9 Obesity, unspecified; Z68.39 Body mass index [BMI] 39.0-39.9, adult
CPT/HCPCS: 36415; 80053; 81001; 82977; 83690; 85025; 86140; 87086; 96374; 99284; J2405; J7120; 99283

== ENCOUNTER 2020-10-22 10:56 | Day surgery (SDC) | payer MEDICARE, OTHER ==
--- NOTE | 2020-10-22 13:13 | PCM.PREANE ---
Preanesthetic Assessment - Procedure Proposed Procedure: colonoscopy and egd - Anesthesia/Transfusion/Family Hx Anesthesia History: Prior Anesthesia Without Reaction Family History of Anesthesia Reaction: No Transfusion History: Prior Transfusion Without Reaction Intubation History: Unknown - Review of Systems General: No Symptoms Pulmonary: No Symptoms Cardiovascular: No Symptoms Gastrointestinal: Vomiting Neurological: Pre-Existing Deficit (dementia ) Other: Reports: None - Physical Assessment NPO Status Date: 10/21/20 NPO Status Time: 23:55 Height: 1.57 m Weight: 77 kg ASA Class: 3 Mental Status: Alert & Oriented x3 Airway Class: Mallampati = 2 Dentition: Reports: Missing Tooth/Teeth (multiple both sides and in front ) Thyro-Mental Finger Breadths: 3 Mouth Opening Finger Breadths: 4 Lungs: Clear to Auscultation, Normal Respiratory Effort Cardiovascular: Regular Rate, Regular Rhythm - Allergies Allergies/Adverse Reactions: Allergies Allergy/AdvReac Type Severity Reaction Status Date / Time No Known Allergies Allergy Verified 10/10/20 10:35 - Blood Blood Available: No - Anesthesia Plan Pre-Op Medication Ordered: None - Acknowledgements Anesthesia Type Planned: MAC Pt an Appropriate Candidate for the Planned Anesthesia: Yes Alternatives and Risks of Anesthesia Discussed w Pt/Guardian: Yes Pt/Guardian Understands and Agrees with Anesthesia Plan: Yes PreAnesthesia Questionnaire HEENT History: Reports: None, Impaired Vision Cardiovascular History: Reports: Aneurysm, Hypertension Respiratory History: Reports: None Gastrointestinal History: Reports: None 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 Musculoskeletal History: Reports: None Neurological History: Reports: Other (See Below) Other Neuro History: brain aneurysm with repair Psychiatric History: Reports: None Endocrine/Metabolic History: Reports: Obesity/BMI 30+ Hematologic History: Reports: None Immunologic History: Reports: None Oncologic (Cancer) History: Reports: None Dermatologic History: Reports: None - Infectious Disease History Infectious Disease History: Reports: Novel Coronavirus Other Infectious Disease History: JAN 2020 - Past Surgical History Head Surgeries/Procedures: Reports: Other (See Below) HEENT Surgical History: Reports: None Other HEENT Surgeries/Procedures: pt wears glasses and has a upper partial for two teeth Cardiovascular Surgical History: Reports: None, Aneurysm Respiratory Surgical History: Reports: None GI Surgical History: Reports: None Female Surgical History: Reports: None Endocrine Surgical History: Reports: None Neurological Surgical History: Reports: None Musculoskeletal Surgical History: Reports: None Oncologic Surgical History: Reports: None Dermatological Surgical History: Reports: None - HOME MEDS Home Medications: Home Meds Losartan/Hydrochlorothiazide [Losartan-HCTZ 100-12.5 MG] 1 tab PO DAILY 02/21/20 [History] Metoprolol Succinate [Toprol XL] 12.5 mg PO DAILY 02/21/20 [History] Simvastatin [Zocor] 20 mg PO DAILY 02/21/20 [History] Cholecalciferol (Vitamin D3) [Vitamin D3] 10,000 unit PO DAILY #60 tablet 02/26/20 [Rx] lamoTRIgine [Subvenite] 150 mg PO DAILY 08/11/20 [History] Omeprazole 20 mg PO DAILY #30 capsule. 10/10/20 [Rx] Ondansetron [Zofran ODT] 4 mg PO Q6H PRN #20 tab.dis 10/10/20 [Rx] - CURRENT (IN HOUSE) MEDS Current Meds: Current Medications Lactated Ringer's (Ringers, Lactated) 1,000 mls @ 125 mls/hr IV ASDIRECTED MORRO Stop: 10/22/20 23:00 Lidocaine/Sodium Bicarbonate (Lidocaine 1%/Sod Bicarbonate In Ns 8.4% 1 Ml Syringe) 0.25 ml IDERM ONETIME PRN PRN Reason: Prior to IV Start Stop: 10/22/20 18:00 Sodium Chloride (Sodium Chloride 0.9% 10 Ml Syringe) 10 ml FLUSH ASDIRECTED PRN PRN Reason: Keep Vein Open Stop: 10/22/20 18:00
[2020-10-22] MEDS ORDERED: Propofol 200 MG/20 ML SDV ONE (13:21)
[2020-10-22] MEDS ORDERED: Lidocaine 1% 4 ML ONE (13:23)
[2020-10-22] MEDS ORDERED: fentaNYL 100 MCG/2 ML SDV ONE (16:11)
--- NOTE | 2020-10-22 17:22 | PCM48HPAN ---
Post Anesthesia Note - EVALUATION WITHIN 48HRS OF ANESTHETIC Vital Signs in Normal Range: Yes Patient Participated in Evaluation: Yes Respiratory Function Stable: Yes Airway Patent: Yes Cardiovascular Function Stable: Yes Hydration Status Stable: Yes Pain Control Satisfactory: Yes Nausea and Vomiting Control Satisfactory: Yes Mental Status Recovered: Yes Vital Signs: Last Vital Signs Temp 97.7 F 10/22/20 11:10 Pulse 55 L 10/22/20 11:10 Resp 16 10/22/20 11:10 BP 139/77 10/22/20 11:10 Pulse Ox 95 10/22/20 11:10 1719 95% 16 64 97.2 159/87
--- NOTE | 2020-10-22 17:32 | PCM.OPNOTE ---
- General Post-Op/Procedure Note Date of Surgery/Procedure: 10/22/20 Operative Procedure(s): EGD and colonoscopy Findings: 1. Irregular GE junction 2. Gastritis 3. Duodenitis 4. Melanosis coli 5. Diverticulosis 6. Colon polyps 7. Proctitis Pre Op Diagnosis: Nausea, weight loss, dysphagia, constipation Post-Op Diagnosis: same Anesthesia Technique: LEANNE Primary Surgeon: Catalina New Anesthesia Provider: Iqra Stratton Pathology: 1. Duodenal biopsy 2. Gastric antrum biopsy 3. GE junction biopsy 4. Appendiceal orifice biopsy 5. Transverse colon polyp x2 6. Sigmoid polyp 7. Rectal polyp x3 8. Rectal biopsy Fluid Replacement, Intraop: 450 Output, Urine Amount: 0 EBL in mLs: 0 Complications: none apparent Condition: Good
--- NOTE | 2020-10-22 18:27 | PCM.PRNOTE ---
- Free Text/Narrative Note: Operative Report Date of Procedure: October 22, 2020 Pre Op Diagnosis: Nausea, weight loss, dysphagia, constipation Post-Op Diagnosis: same Operative Procedures: 1. EGD with biopsy 2. Colonoscopy to the cecum Primary Surgeon: Catalina New MD Anesthesia Provider: Iqra Stratton CRNA Anesthesia Technique: MAC IV Fluid Replacement, Intraop: 450cc crystalloid Output, Urine Amount: 0cc EBL in mLs: 0cc Findings: 1. Irregular GE junction 2. Gastritis 3. Duodenitis 4. Melanosis coli 5. Diverticulosis 6. Colon polyps 7. Proctitis Specimens: 1. Duodenal biopsy 2. Gastric antrum biopsy 3. GE junction biopsy 4. Appendiceal orifice polyp 5. Transverse colon polyp x2 6. Sigmoid polyp 7. Rectal polyp x3 8. Rectal biopsy Drain/Tubes: None Indication: The patient is a 70-year-old lady who presented to the clinic with multiple symptoms including nausea, dysphagia, poor PO intake, weight loss and const ipation. The patient was consented for a diagnostic EGD and colonoscopy. Risks of bleeding, and perforation were discussed, and the patient and agreed to the risks and wished to proceed. Description of the procedure: The patient was taken back to the endoscopy suite, and placed in the left lateral decubitus position. A bite block was placed. The patient was sedated with MAC anesthesia. The Olympus video endoscope was inserted into the oropharynx and guided under direct vision into the esophagus, stomach, and duodenum. The duodenal bulb and first portion of the duodenum were remarkable for patchy moderate inflammation and biopsies were taken with a cold biopsy forceps. The gastric antrum was inspected and cold biopsy forceps were used to take tissue samples for H. pylori. There was mild erythema in this area consistent with gastritis. The scope was withdrawn to the stomach and retroflexed. There was no increased fluid, food or secretions in the upper gastrointestinal tract. No erosions or ulcers were noted. The scope was withdrawn to the esophagus. The Z line was irregular and biopsied in four quadrants with a cold biopsy forceps. The endoscope was then withdrawn. Next, anorectal examination was performed. No lesions, masses or hemorrhoids were noted externally or on palpation. The scope was placed into the rectum and advanced to cecum. Upon reaching the cecum, and the patients cecum was entered. There was minimal tortuosity of the colon. The ileocecal valve was well visualized and the appendiceal orifice identified. A 2mm flat polyp was seen at the appendiceal orifice and removed with a jumbo cold biopsy forceps. At this point, the scope was slowly withdrawn, paying attention to the mucosa. The patient had good bowel prep, 85-90% of the mucosa was visible. Two flat 3mm transverse polyps were noted and removed with a jumbo cold biopsy forceps. A 2mm flat sigmoid polyp was noted and removed with a jumbo cold biopsy forceps. Three flat 2-3mm polyps were found in the rectum and removed with a jumbo cold biopsy forceps. Moderate melanosis coli was seen in the descending, sigmoid colon and rectum. The mucosa in the rectum was friable consistent with p roctitis, and was biopsied with a cold biopsy forceps. In the rectum, scope was retroflexed and some hemorrhoidal tissue was noted. The scope was placed back in the lumen and excess air was aspirated. The scope was removed. The patient tolerated the procedure very well. Complications: None apparent Condition: The patient was transported to PACU in stable condition. Catalina New MD General Surgery
== END 2020-10-22 18:11 | disposition home or self-care (01) ==
LOC: JD.SDS 10:56
PROVIDERS: ATTEND Surgery
DX: D12.3 Benign neoplasm of transverse colon (principal); K59.00 Constipation, unspecified; K63.89 Other specified diseases of intestine; K62.89 Other specified diseases of anus and rectum; K31.89 Other diseases of stomach and duodenum; K22.8 Other specified diseases of esophagus; K57.30 Diverticulosis of large intestine without perforation or abscess without bleeding; I10 Essential (primary) hypertension; E66.9 Obesity, unspecified; K29.50 Unspecified chronic gastritis without bleeding; K29.80 Duodenitis without bleeding; Z68.32 Body mass index [BMI] 32.0-32.9, adult
CPT/HCPCS: 43239; 45380; J2704; J3010; J7120; 00813; 88305; 88342

== ENCOUNTER 2020-10-28 16:00 | Emergency (ER) | payer MEDICARE, OTHER ==
[2020-10-28] MEDS ORDERED: Sodium Chloride 0.9% 1,000 ML IV STA (16:45)
[2020-10-28] MEDS ORDERED: Metoclopramide 10 MG/2 ML SDV IVPUSH ONE (16:45)
[2020-10-28] MEDS ORDERED: Sodium Chloride 0.9% 10 ML Syringe FLUSH PRN (16:45)
[2020-10-28] MEDS ORDERED: Dextrose 5% in Water 1,000 ML IV SCH (18:00)
[2020-10-28] MEDS ORDERED: Iopamidol 612 MG/ML 100 ML Bottle IVPUSH ONE (18:17)
--- NOTE | 2020-10-28 18:18 | EDM.PDOC ---
<Amador Hernadez - Last Filed: 10/29/20 06:55> ED HPI GENERAL MEDICAL PROBLEM - General Chief Complaint: Gastrointestinal Problem Stated Complaint: VOMITING Time Seen by Provider: 10/28/20 16:18 Source of Information: Reports: Patient, Family History Limitations: Reports: No Limitations - History of Present Illness INITIAL COMMENTS - FREE TEXT/NARRATIVE: The patient presents with nausea and vomiting. This has been going on for over a month. She has been seen here and at her provider. She also saw Dr Wilcox and had an EGD and colonoscopy. They found polyps in the colon and some gastritis. She is on prilosec. Her says for a month she has not eaten any solid food. She has been drinking water. Her says when he even mentions food she will vomit. Any solid food will make her vomit. She has not tried any ensure or liquid nutrition. She has no abdominal pain. She has no diarrhea. She has no fever, chills, cough, chest pain, or shortness of breath. Onset: Gradual Duration: Week(s): (4) Severity: Moderate Improves with: Reports: None Worsens with: Reports: None Associated Symptoms: Reports: Nausea/Vomiting. Denies: Chest Pain, Cough, Fever/Chills, Headaches, Shortness of Breath - Related Data Allergies Allergy/AdvReac Type Severity Reaction Status Date / Time No Known Allergies Allergy Verified 10/28/20 16:26 Home Meds: Home Meds Metoprolol Succinate [Toprol XL] 12.5 mg PO DAILY 02/21/20 [History] Simvastatin [Zocor] 20 mg PO DAILY 02/21/20 [History] Omeprazole 20 mg PO DAILY #30 capsule. 10/10/20 [Rx] Ondansetron [Zofran ODT] 4 mg PO Q6H PRN #20 tab.dis 10/10/20 [Rx] Aspirin 325 mg PO DAILY 10/22/20 [History] Calcium Carbonate/Vitamin D3 [Os-Ronald 500+D] 1 tab PO DAILY 10/22/20 [History] Cholecalciferol (Vitamin D3) [Vitamin D3] 5,000 unit PO DAILY 10/22/20 [History] Sucralfate [Carafate] 1 gm PO QID 10/22/20 [History] lamoTRIgine [Lamictal] 200 mg PO BID 10/22/20 [History] Prochlorperazine Maleate 10 mg PO Q6H PRN #20 tablet 10/28/20 [Rx] Past Medical History HEENT History: Reports: None, Impaired Vision Cardiovascular History: Reports: Aneurysm, Hypertension Respiratory History: Reports: None Gastrointestinal History: Reports: None CRANBERRY GROWER History: Reports: None Musculoskeletal History: Reports: None Neurological History: Reports: Other (See Below) Other Neuro History: brain aneurysm with repair Psychiatric History: Reports: None Endocrine/Metabolic History: Reports: Obesity/BMI 30+ Hematologic History: Reports: None Immunologic History: Reports: None Oncologic (Cancer) History: Reports: None Dermatologic History: Reports: None - Infectious Disease History Infectious Disease History: Reports: Novel Coronavirus Other Infectious Disease History: JAN 2020 - Past Surgical History Head Surgeries/Procedures: Reports: Other (See Below) HEENT Surgical History: Reports: None Other HEENT Surgeries/Procedures: pt wears glasses and has a upper partial for two teeth Cardiovascular Surgical History: Reports: None, Aneurysm Respiratory Surgical History: Reports: None GI Surgical History: Reports: None Female Surgical History: Reports: None Endocrine Surgical History: Reports: None Neurological Surgical History: Reports: None Musculoskeletal Surgical History: Reports: None Oncologic Surgical History: Reports: None Dermatological Surgical History: Reports: None Social & Family History - Family History Family Medical History: No Pertinent Family History - Tobacco Use Tobacco Use Status *Q: Never Tobacco User - Caffeine Use Caffeine Use: Reports: Coffee, Soda, Tea - Recreational Drug Use Recreational Drug Use: No ED ROS GENERAL - Review of Systems Review Of Systems: See Below Constitutional: Reports: No Symptoms HEENT: Reports: No Symptoms Respiratory: Reports: No Symptoms Cardiovascular: Reports: No Symptoms Endocrine: Reports: No Symptoms GI/Abdominal: Reports: Nausea, Vomiting. Denies: Abdominal Pain, Diarrhea : Reports: No Symptoms Musculoskeletal: Reports: No Symptoms ED EXAM, GI/ABD - Physical Exam Exam: See Below Exam Limited By: No Limitations General Appearance: Alert, No Apparent Distress Ears: Normal External Exam Nose: Normal Inspection Head: Atraumatic, Normocephalic Neck: Normal Inspection Respiratory/Chest: No Respiratory Distress, Lungs Clear, Normal Breath Sounds Cardiovascular: Regular Rate, Rhythm, No Edema, No Murmur GI/Abdominal Exam: Soft, Non-Tender, No Organomegaly, No Mass Back Exam: Normal Inspection Extremities: Normal Inspection Course - Re-Assessments/Exams Free Text/Narrative Re-Assessment/Exam: 10/28/20 18:23 I ordered an IV NS 1L bolus, reglan 10mg IV, labs, and UA. Her CBC looks good. Her K was low at 3.1. Her BUN was elevated at 35. Her creatinine is elevated at 1.6. Her total bili is elevated at 1.2. Her lipase is elevated at 564. Last month this was normal. She has lost about 37.4 pounds. I have ordered a CT of her abdomen and pelvis. She could not tolerate the oral contrast. I will do it with IV only. I have ordered more fluids D5 W at 150ml. 10/29/20 06:[address] shows nothing acute. She does have a small L2 compression fracture. I talked to our hospitalist about possibly admitting her. He was reluctant given the fact that she can hold down fluids like water. He recommended trying some haldol and zofran again. He also wanted me to ask if she used marijuana. I as ked her and she denies using. It was change of shift and Dr Garza took over. The patient did good with the haldol and zofran. She did go home. Departure - Departure Disposition: Home, Self-Care 01 Clinical Impression: Vomiting Qualifiers: Vomiting type: unspecified Vomiting Intractability: non-intractable Nausea presence: unspecified Qualified Code(s): R11.10 - Vomiting, unspecified - Discharge Information Prescriptions: Prochlorperazine Maleate 10 mg PO Q6H PRN #20 tablet PRN Reason: Nausea or GI distress Instructions: Vomiting, Adult Referrals: Chloe Saldana, C[facility] LACER JACQUARD [Primary Care Provider] - Forms: ED Department Discharge Additional Instructions: Return if condition worsens May resume general activity and light diet as tolerated Continue usual medications May take PROCHLORPERAZINE as prescribed, as needed for nausea Follow-up with primary care provider or neurologist is recommended Discuss reevaluation of gallbladder with ultrasound and/or NM hepatobiliary scan Sepsis Event Note (ED) - Evaluation Sepsis Screening Result: No Definite Risk <Marc Garza - Last Filed: 10/31/20 11:30> Course - Vital Signs Text/Narrative:: Care of patient assumed from Dr Hernadez pending re-evaluation after medications Materials And Corrosion Engineer was advised by ED RN that patient felt better after treatment with thomas loperidol and was requesting discharge Patient had tolerated oral fluid trial, with no further emesis after that with oral contrast Course of symptoms was reviewed with patient and Primary care and GI follow-up was advised, with consideration for gallbladder re-evaluation based on limited documentation of such Alternate antiemetic medication was prescribed Patient was felt to be stable for outpatient follow-up Return precautions were provided Last Recorded V/S: Last Vital Signs Temp 36.2 C 10/28/20 16:22 Pulse 64 10/28/20 16:22 Resp 20 10/28/20 16:22 BP 119/67 10/28/20 16:22 Pulse Ox 100 10/28/20 16:22 - Orders/Labs/Meds Labs: Laboratory Tests 10/28/20 10/28/20 10/28/20 Range/Units 17:00 17:00 18:52 WBC 7.96 (3.98-10.04) K/mm3 RBC 4.56 (3.98-5.22) M/mm3 Hgb 13.6 (11.2-15.7) gm/dl Hct 39.9 (34.1-44.9) % MCV 87.5 (79.4-94.8) fl MCH 29.8 (25.6-32.2) pg MCHC 34.1 (32.2-35.5) g/dl RDW Std Deviation 41.9 (36.4-46.3) fL Plt Count 312 D (182-369) K/mm3 MPV 10.8 (9.4-12.3) fl Neut % (Auto) 61.9 (34.0-71.1) % Lymph % (Auto) 21.5 (19.3-51.7) % [place] % (Auto) 12.3 (4.7-12.5) % Eos % (Auto) 3.6 (0.7-5.8) Baso % (Auto) 0.4 (0.1-1.2) % Neut # (Auto) 4.93 (1.56-6.13) K/mm3 Lymph # (Auto) 1.71 (1.18-3.74) K/mm3 [place] # (Auto) 0.98 H (0.24-0.36) K/mm3 Eos # (Auto) 0.29 (0.04-0.36) K/mm3 Baso # (Auto) 0.03 (0.01-0.08) K/mm3 Sodium 138 (136-145) mEq/L Potassium 3.1 L (3.5-5.1) mEq/L Chloride 96 L (98-107) mEq/L Carbon Dioxide 31 (21-32) mEq/L Anion Gap 14.1 (5-15) BUN 35 H (7-18) mg/dL Creatinine 1.6 H (0.55-1.02) mg/dL Est Cr Clr Drug Dosing 28.66 mL/min Estimated GFR (MDRD) 32 (>60) mL/min BUN/Creatinine Ratio 21.9 H (14-18) Glucose 85 (80-115) mg/dL Calcium 10.3 H (8.5-10.1) mg/dL Magnesium 1.8 (1.8-2.4) mg/dl Total Bilirubin 1.2 H (0.2-1.0) mg/dL AST 24 (15-37) U/L ALT 24 (14-59) U/L Alkaline Phosphatase 67 (46-116) U/L Total Protein 7.4 (6.4-8.2) g/dl Albumin 3.9 (3.4-5.0) g/dl Globulin 3.5 gm/dL Albumin/Globulin Ratio 1.1 (1-2) Lipase 564 H (73-393) U/L Urine Color (Yellow) Urine Appearance (Clear) Urine pH (5.0-8.0) Ur Specific [place] (1.005-1.030) Urine Protein (Negative) Urine Glucose (UA) (Negative) Urine Ketones (Negative) Urine Occult Blood (Negative) Urine Nitrite (Negative) Urine Bilirubin (Negative) Urine Urobilinogen (0.2-1.0) Ur Leukocyte Esterase (Negative) U Hyaline Cast (Auto) (0-5) /lpf Urine RBC (0-5) /hpf Urine WBC (0-5) /hpf Ur Squamous Epith Cells (0-5) /hpf Urine Bacteria (FEW) /hpf Urine Mucus (FEW) /hpf SARS-CoV-2 RNA (BLADE) Negative (NEGATIVE) 10/28/20 Range/Units 20:03 WBC (3.98-10.04) K/mm3 RBC (3.98-5.22) M/mm3 Hgb (11.2-15.7) gm/dl Hct (34.1-44.9) % MCV (79.4-94.8) fl MCH (25.6-32.2) pg MCHC (32.2-35.5) g/dl RDW Std Deviation (36.4-46.3) fL Plt Count (182-369) K/mm3 MPV (9.4-12.3) fl Neut % (Auto) (34.0-71.1) % Lymph % (Auto) (19.3-51.7) % [place] % (Auto) (4.7-12.5) % Eos % (Auto) (0.7-5.8) Baso % (Auto) (0.1-1.2) % Neut # (Auto) (1.56-6.13) K/mm3 Lymph # (Auto) (1.18-3.74) K/mm3 [place] # (Auto) (0.24-0.36) K/mm3 Eos # (Auto) (0.04-0.36) K/mm3 Baso # (Auto) (0.01-0.08) K/mm3 Sodium (136-145) mEq/L Potassium (3.5-5.1) mEq/L Chloride (98-107) mEq/L Carbon Dioxide (21-32) mEq/L Anion Gap (5-15) BUN (7-18) mg/dL Creatinine (0.55-1.02) mg/dL Est Cr Clr Drug Dosing mL/min Estimated GFR (MDRD) (>60) mL/min BUN/Creatinine Ratio (14-18) Glucose (80-115) mg/dL Calcium (8.5-10.1) mg/dL Magnesium (1.8-2.4) mg/dl Total Bilirubin (0.2-1.0) mg/dL AST (15-37) U/L ALT (14-59) U/L Alkaline Phosphatase (46-116) U/L Total Protein (6.4-8.2) g/dl Albumin (3.4-5.0) g/dl Globulin gm/dL Albumin/Globulin Ratio (1-2) Lipase (73-393) U/L Urine Color Yellow (Yellow) Urine Appearance Clear (Clear) Urine pH 6.0 (5.0-8.0) Ur Specific [place] 1.020 (1.005-1.030) Urine Protein Trace H (Negative) Urine Glucose (UA) Negative (Negative) Urine Ketones 2+ H (Negative) Urine Occult Blood Trace-intact H (Negative) Urine Nitrite Negative (Negative) Urine Bilirubin 1+ H (Negative) Urine Urobilinogen 0.2 (0.2-1.0) Ur Leukocyte Esterase 1+ H (Negative) U Hyaline Cast (Auto) 0-5 (0-5) /lpf Urine RBC 0-5 (0-5) /hpf Urine WBC 40-50 H (0-5) /hpf Ur Squamous Epith Cells 5-10 H (0-5) /hpf Urine Bacteria Moderate H (FEW) /hpf Urine Mucus Not seen (FEW) /hpf SARS-CoV-2 RNA (BLADE) (NEGATIVE) Meds: Medications Discontinued Medications Generic Name Dose Route Start Last Admin Trade Name Freq PRN Reason Stop Dose Admin Diatrizoate Meglum/Diatrizoate Sod 120 ml 10/28/20 18:47 10/28/20 18:48 Diatrizoate Meglumine/Diatrizoate Sodium 37% 120 Ml Bottle PO 10/28/20 18:48 60 ml ONETIME ONE Administration Haloperidol Lactate 5 mg 10/28/20 19:42 10/28/20 20:03 Haloperidol Lactate 5 Mg/Ml Sdv IVPUSH 10/28/20 19:43 5 mg ONETIME ONE Administration Sodium Chloride 1,000 mls @ 1,000 mls/hr 10/28/20 16:45 10/28/20 17:06 Normal Saline IV 10/28/20 17:44 1,000 mls/hr .BOLUS STA Administration Dextrose/Water 1,000 mls @ 150 mls/hr 10/28/20 18:00 10/28/20 18:16 Dextrose 5% In Water IV 150 mls/hr ASDIRECTED MORRO Administration Iopamidol 100 ml 10/28/20 18:17 10/28/20 18:48 Iopamidol 612 Mg/Ml 100 Ml Bottle IVPUSH 10/28/20 18:18 100 ml ONETIME ONE Administration Metoclopramide HCl 10 mg 10/28/20 16:45 10/28/20 17:03 Metoclopramide 10 Mg/2 Ml Sdv IVPUSH 10/28/20 16:46 10 mg ONETIME ONE Administration Ondansetron HCl 4 mg 10/28/20 19:44 10/28/20 20:03 Ondansetron 4 Mg/2 Ml Sdv IVPUSH 10/28/20 19:45 4 mg ONETIME ONE Administration Sodium Chloride 10 ml 10/28/20 16:45 10/28/20 17:01 Sodium Chloride 0.9% 10 Ml Syringe FLUSH 10 ml ASDIRECTED PRN Administration Keep Vein Open Sodium Chloride 10 ml 10/28/20 18:30 10/28/20 18:49 Sodium Chloride 0.9% 10 Ml Syringe FLUSH 10 ml BOLUS MORRO Administration Departure - Departure Time of Disposition: 21:27 Condition: Good
[2020-10-28] MEDS ORDERED: Sodium Chloride 0.9% 10 ML Syringe FLUSH SCH (18:30)
[2020-10-28] MEDS ORDERED: Diatrizoate Meglumine/Diatrizoate Sodium 37% 120 ML Bottle PO ONE (18:47)
--- NOTE | 2020-10-28 19:19 | CT ---
CT abdomen and pelvis Technique: Multiple axial sections were obtained from above the dome of the diaphragm inferiorly through the pubic symphysis. Intravenous and oral contrast was utilized. Delayed images were also obtained through the bladder. Reconstructed coronal and sagittal images were obtained. Comparison: No prior abdominal imaging is available. Findings: Visualized lung bases show nothing acute. Liver shows 3 small low density lesions which are nonspecific but most likely represent small cysts. Spleen appears normal in size. Pancreas shows no surrounding inflammatory change. Adrenal glands show no nodule. Kidneys show symmetric contrast enhancement without hydronephrosis or mass. No ureteral dilatation is seen. Gallbladder shows no calcified gallstones. Abdominal aorta shows atherosclerotic change with no aneurysm. No retroperitoneal adenopathy is seen. No mesenteric abnormalities are seen. Appendix is seen which is normal. No pelvic mass or adenopathy is seen. Small fibroid change is noted within the uterus. Bilateral small fat-containing partial inguinal hernias are noted. No free fluid or inflammatory change is appreciated. Delayed images show contrast within the bladder. Minimal fat-containing umbilical hernia is noted. Bone window settings were reviewed which show a compression deformity within the superior L2 endplate. This could certainly be fairly acute given its appearance. No other acute osseous abnormality is appreciated. Impression: 1. Endplate concavity superiorly within L2 which could be fairly acute. 2. Other findings as noted above. No acute abnormality is otherwise seen on CT study of the abdomen and pelvis. Diagnostic code #3
[2020-10-28] MEDS ORDERED: Haloperidol Lactate 5 MG/ML SDV IVPUSH ONE (19:42)
[2020-10-28] MEDS ORDERED: Ondansetron 4 MG/2 ML SDV IVPUSH ONE (19:44)
== END 2020-10-28 21:35 | disposition home or self-care (01) ==
LOC: JD.ED 16:00
DX: R11.2 Nausea with vomiting, unspecified (principal); R74.8 Abnormal levels of other serum enzymes; I10 Essential (primary) hypertension; E66.9 Obesity, unspecified; Z68.30 Body mass index [BMI] 30.0-30.9, adult; Z79.82 Long term (current) use of aspirin; Z79.899 Other long term (current) drug therapy; Z20.822 Contact with and (suspected) exposure to COVID-19
CPT/HCPCS: 36415; 74177; 80053; 81001; 83690; 83735; 85025; 96374; 96375; 99284; J1630; J2405; J2765; J7030; J7060; Q9963; Q9967; U0002

== ENCOUNTER 2020-11-03 10:54 | Day surgery (SDC) | payer MEDICARE, OTHER ==
[2020-11-03] MEDS ORDERED: Gabapentin 300 MG Cap PO ONE (11:30)
[2020-11-03] MEDS ORDERED: Acetaminophen 325 MG Tab PO ONE (11:30)
--- NOTE | 2020-11-03 11:40 | PCM.PREANE ---
Preanesthetic Assessment - Procedure Proposed Procedure: Laparoscopic Cholecystectomy - Anesthesia/Transfusion/Family Hx Anesthesia History: Prior Anesthesia Without Reaction Family History of Anesthesia Reaction: No Transfusion History: Prior Transfusion Without Reaction Intubation History: Unknown - Review of Systems General: Fatigue, Malaise Pulmonary: No Symptoms Cardiovascular: Dyspnea on Exertion Gastrointestinal: No Symptoms Neurological: Seizure (14 years ago or more?), Gait Disturbance Other: Reports: None - Physical Assessment NPO Status Date: 11/02/20 NPO Status Time: 00:00 Height: 1.57 m Weight: 74.1 kg ASA Class: 3 Mental Status: Alert & Oriented x3 Airway Class: Mallampati = 2 Dentition: Reports: Partial, Missing Tooth/Teeth Thyro-Mental Finger Breadths: 2 Mouth Opening Finger Breadths: 2 ROM/Head Extension: Full Lungs: Clear to Auscultation, Normal Respiratory Effort, Crackles (clear with deep breath) Cardiovascular: Regular Rate, Regular Rhythm - Imaging/EKG Impressions: EKG SR Rate 65 - Allergies Allergies/Adverse Reactions: Allergies Allergy/AdvReac Type Severity Reaction Status Date / Time No Known Allergies Allergy Verified 10/28/20 16:26 - Anesthesia Plan Pre-Op Medication Ordered: Beta Nazario Beta Nazario: Metoprolol Med Last Dose Date: 11/02/20 Med Last Dose Time: 08:00 - Acknowledgements Anesthesia Type Planned: General Anesthesia Pt an Appropriate Candidate for the Planned Anesthesia: Yes Alternatives and Risks of Anesthesia Discussed w Pt/Guardian: Yes Pt/Guardian Understands and Agrees with Anesthesia Plan: Yes PreAnesthesia Questionnaire HEENT History: Reports: None, Impaired Vision Cardiovascular History: Reports: Aneurysm, Hypertension Respiratory History: Reports: None Gastrointestinal History: Reports: None SENIOR INFORMATION SYSTEMS 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: Reports: None Musculoskeletal History: Reports: None Neurological History: Reports: Other (See Below) Other Neuro History: brain aneurysm with repair Psychiatric History: Reports: None Endocrine/Metabolic History: Reports: Obesity/BMI 30+ Hematologic History: Reports: None Immunologic History: Reports: None Oncologic (Cancer) History: Reports: None Dermatologic History: Reports: None - Infectious Disease History Infectious Disease History: Reports: Novel Coronavirus Other Infectious Disease History: JAN 2020 - Past Surgical History Head Surgeries/Procedures: Reports: Other (See Below) HEENT Surgical History: Reports: None Other HEENT Surgeries/Procedures: pt wears glasses and has a upper partial for two teeth Cardiovascular Surgical History: Reports: None, Aneurysm Respiratory Surgical History: Reports: None GI Surgical History: Reports: None Female Surgical History: Reports: None Endocrine Surgical History: Reports: None Neurological Surgical History: Reports: None Musculoskeletal Surgical History: Reports: None Oncologic Surgical History: Reports: None Dermatological Surgical History: Reports: None - SUBSTANCE USE Tobacco Use Status *Q: Never Tobacco User Tobacco Use Within Last Twelve Months: No Second Hand Smoke Exposure: No Days Per Week of Alcohol Use: 0 Number of Drinks Per Day: 0 Total Drinks Per Week: 0 Recreational Drug Use History: No - HOME MEDS Home Medications: Home Meds Metoprolol Succinate [Toprol XL] 12.5 mg PO DAILY 02/21/20 [History] Simvastatin [Zocor] 20 mg PO DAILY 02/21/20 [History] Omeprazole 20 mg PO DAILY #30 capsule. 10/10/20 [Rx] Ondansetron [Zofran ODT] 4 mg PO Q6H PRN #20 tab.dis 10/10/20 [Rx] Aspirin 325 mg PO DAILY 10/22/20 [History] Calcium Carbonate/Vitamin D3 [Os-Ronald 500+D] 1 tab PO DAILY 10/22/20 [History] Cholecalciferol (Vitamin D3) [Vitamin D3] 5,000 unit PO DAILY 10/22/20 [History] Sucralfate [Carafate] 1 gm PO QID 10/22/20 [History] lamoTRIgine [Lamictal] 200 mg PO BID 10/22/20 [History] Prochlorperazine Maleate 10 mg PO Q6H PRN #20 tablet 10/28/20 [Rx] - CURRENT (IN HOUSE) MEDS Current Meds: Current Medications Lactated Ringer's (Ringers, Lactated) 1,000 mls @ 125 mls/hr IV ASDIRECTED MORRO Stop: 11/03/20 23:00 Lidocaine/Sodium Bicarbonate (Lidocaine 1%/Sod Bicarbonate In Ns 8.4% 1 Ml Syringe) 0.25 ml IDERM ONETIME PRN PRN Reason: Prior to IV Start Stop: 11/03/20 18:00 Sodium Chloride (Sodium Chloride 0.9% 10 Ml Syringe) 10 ml FLUSH ASDIRECTED PRN PRN Reason: Keep Vein Open Stop: 11/03/20 18:00 Discontinued Medications Acetaminophen (Acetaminophen 325 Mg Tab) 975 mg PO NOW ONE Stop: 11/03/20 11:31 Bupivacaine HCl/Epinephrine Bitart (Bupivacaine 0.5%/Epinephrine 1:200,000 50 Ml Mdv) Confirm Administered Dose 50 ml .ROUTE .STK-MED ONE Stop: 11/03/20 11:05 Gabapentin (Gabapentin 300 Mg Cap) 300 mg PO ONETIME ONE Stop: 11/03/20 11:31 Lidocaine/Epinephrine (Lidocaine 1% With Epinephrine 1:100,000 10 Ml Mdv) Confirm Administered Dose 30 ml .ROUTE .STK-MED ONE Stop: 11/03/20 11:05
[2020-11-03] MEDS: Lidocaine 1% with EPINEPHrine 1:100,000 10 ML MDV ONE ×2 (11:49→12:46)
[2020-11-03] MEDS: Bupivacaine 0.5%/EPINEPHrine 1:200,000 50 ML MDV ONE ×2 (11:50→12:46)
[2020-11-03] MEDS ORDERED: Propofol 200 MG/20 ML SDV ONE (11:55)
[2020-11-03] MEDS ORDERED: Ondansetron 4 MG/2 ML SDV ONE (11:55)
[2020-11-03] MEDS ORDERED: Midazolam 1 MG/ML 2 ML SDV ONE (11:55)
[2020-11-03] MEDS ORDERED: Rocuronium 50 MG/5 ML Vial ONE (11:55)
[2020-11-03] MEDS ORDERED: Lidocaine 1% 4 ML ONE (11:56)
[2020-11-03] MEDS ORDERED: fentaNYL 250 MCG/5 ML SDV ONE (11:56)
[2020-11-03] MEDS ORDERED: ceFAZolin 1 GM Vial ONE (11:56)
[2020-11-03] MEDS ORDERED: ePHEDrine 50 MG/ML SDV ONE (12:46)
[2020-11-03] MEDS ORDERED: Labetalol 100 MG/20 ML MDV ONE (12:58)
[2020-11-03] MEDS ORDERED: Lactated Ringers 1,000 ML ONE (13:13)
--- NOTE | 2020-11-03 13:41 | PCM.OPNOTE ---
- General Post-Op/Procedure Note Date of Surgery/Procedure: 11/03/20 Operative Procedure(s): laparoscopic cholecystectomy Findings: distended gallbladder with stones Pre Op Diagnosis: Nausea and vomiting, symptomatic cholelithiasis Post-Op Diagnosis: same Anesthesia Technique: General ET Tube, Local Primary Surgeon: Catalina New Anesthesia Provider: Jl Orantes Pathology: Gallbladder with contents Fluid Replacement, Intraop: 2,400 Output, Urine Amount: 0 EBL in mLs: 5 Complications: none apparent Condition: Good
--- NOTE | 2020-11-03 13:49 | PCM.PRNOTE ---
- Free Text/Narrative Note: OPERATIVE REPORT Date of Surgery/Procedure: November 03, 2020 Operative Procedure(s): laparoscopic cholecystectomy Findings: distended gallbladder with stones Pre Op Diagnosis: Nausea and vomiting with Symptomatic cholelithiasis Post-Op Diagnosis: Same Anesthesia Technique: General ET with local Primary Surgeon: Catalina New MD Anesthesia Provider: Jl Orantes CRNA Pathology: Gallbladder with stones Fluid Replacement, Intraop: 2400cc Output, Urine Amount: 0cc EBL: 5cc Drain/Tube Comments: none Indication for the procedure: The patient is a 70-year-old lady who presented to my office with persistent nausea and vomiting, with inability to tolerate PO. She had recent workup that showed a distended bile duct, and subsequent MRCP that did not show any choledocholithiasis. She did have an elevated total bilirubin and lipase. It is possible that the patient had passed a gallstone. The patient was counseled for laparoscopic cholecystectomy, with possible conversion to open. After discussion of the risks of infection, bleeding and injury to the bile duct, the patient's consent was obtained. Description of the procedure: The patient presented to the outpatient holding area on the day of the procedure. The history and physical were verified and consent was present and on the chart. The patient was taken back to the operating room and placed in supine position on the operating table. SCD boots were placed and functional prior to the start of the procedure. Preoperative antibiotics were administered according to SCIP protocol, Ancef 2 g IV. A surgical timeout was performed. The patient then had induction of general anesthesia and was intubated without difficulty. The patient was prepped and draped in standard surgical fashion. We began by making an infraumbilical vertical incision and deepened this down through subcutaneous fat to the level of the fascia. This was grasped and incised. We bluntly entered through the peritoneum and a finger sweep was done. A stay suture of 0 Vicryl was placed in the fascia. The 12 mm balloon [place] port was then inserted into the abdomen and the balloon inflated. Insufflation was attached and we had appropriate opening pressures. The abdomen was then insufflated to 15 mmHg. A TAP block was then performed using 1% lidocaine with epinephrine mixed with 0.5% bupivacaine with epinephrine. The patient was then positioned with head up and right side up to facilitate exposure of the gallbladder. We then proceeded with placing our additional ports. A 5mm port was placed in the epigastric region. Two additional 5mm ports placed under direct visualization in the right upper quadrant. Once we had sufficiently exposed the dome of the gallbladder. This was grasped and retracted cephalad. We proceeded with our dissection to expose the cystic duct and cystic artery. We did have a critical view. The cystic duct and artery were then clipped and cut using endoscopic scissors. We then proceeded to fully dissect the gallbladder off of the cystic plate using the Bovie device. The gallbladder was then placed in the Endo Catch bag and withdrawn towards the umbilical port. We then inspected the area of the dissection. The Bovie was used for hemostasis on the liver bed. The area was reinspected and there was no significant bleeding and hemostasis was achieved. We then desufflated the abdomen. The gallbladder was withdrawn through the umbilical port site. We then proceeded to close the umbilical port site using an 0 Vicryl stitch. We had good closure of the fascia. The ports were then removed. A superficial 4-0 monocryl suture was used to approximate the skin. The skin was covered with Dermabond surgical glue. The patient tolerated the procedure well and was extubated without difficulty. She was transported to the PACU in stable condition. All sponge, needle counts correct. No immediate complications noted. Complications: None apparent Condition: Good Catalina New MD General Surgery
[2020-11-03] MEDS ORDERED: Ketorolac 30 MG/ML SDV IVPUSH PRN (14:04)
--- NOTE | 2020-11-03 14:04 | PCM.POSTAN ---
POST ANESTHESIA ASSESSMENT - MENTAL STATUS Mental Status: Alert, Oriented - VITAL SIGNS Vital Signs: Last Vital Signs Temp 36.4 C 11/03/20 11:05 Pulse 71 11/03/20 11:20 Resp 16 11/03/20 11:20 BP 105/66 11/03/20 11:20 Pulse Ox 100 11/03/20 11:20 - RESPIRATORY Respiratory Status: Respiratory Rate WNL, Airway Patent, O2 Saturation Stable, Supplemental Oxygen - CARDIOVASCULAR CV Status: Pulse Rate WNL, Blood Pressure Stable - GASTROINTESTINAL GI Status: No Symptoms - PAIN Pain Score: 0 - POST OP HYDRATION Hydration Status: Adequate & Stable - OBSERVATIONS Free Text/Narrative:: no anesthesia complications noted
--- NOTE | 2020-11-03 14:52 | PCM48HPAN ---
Post Anesthesia Note - EVALUATION WITHIN 48HRS OF ANESTHETIC Vital Signs in Normal Range: Yes Patient Participated in Evaluation: Yes Respiratory Function Stable: Yes Airway Patent: Yes Cardiovascular Function Stable: Yes Hydration Status Stable: Yes Pain Control Satisfactory: Yes Nausea and Vomiting Control Satisfactory: Yes Mental Status Recovered: Yes Vital Signs: Last Vital Signs Temp 36.9 C 11/03/20 14:45 Pulse 44 L 11/03/20 14:45 Resp 14 11/03/20 14:45 BP 148/66 H 11/03/20 14:45 Pulse Ox 100 11/03/20 14:45 - COMMENTS/OBSERVATIONS Free Text/Narrative:: no anesthesia complications noted
== END 2020-11-03 19:11 | disposition home or self-care (01) ==
LOC: JD.SDS 10:54 → JD.MS 15:46 → JD.SDS 19:11
PROVIDERS: ATTEND Surgery
DX: K80.10 Calculus of gallbladder with chronic cholecystitis without obstruction (principal); I10 Essential (primary) hypertension; Z86.010 Personal history of colon polyps; Z79.82 Long term (current) use of aspirin; Z79.899 Other long term (current) drug therapy; E66.9 Obesity, unspecified; Z86.16 Personal history of COVID-19; Z68.29 Body mass index [BMI] 29.0-29.9, adult
CPT/HCPCS: 47562; J0690; J2250; J2405; J2704; J2710; J3010; J3490; J7120; 00790; 88304

== ENCOUNTER 2020-11-14 14:55 | Emergency (ER) | payer MEDICARE, OTHER ==
[2020-11-14] MEDS ORDERED: Sodium Chloride 0.9% 10 ML Syringe FLUSH PRN (15:34)
[2020-11-14] MEDS ORDERED: Sodium Chloride 0.9% 1,000 ML IV ONE ×2 (15:34→17:12)
--- NOTE | 2020-11-14 15:49 | EDM.PDOC ---
ED HPI GENERAL MEDICAL PROBLEM - General Chief Complaint: General Stated Complaint: LOW BP/POSS DEHYDRATION Time Seen by Provider: 11/14/20 15:04 Source of Information: Reports: Family History Limitations: Reports: No Limitations - History of Present Illness INITIAL COMMENTS - FREE TEXT/NARRATIVE: 70-year-old female presents to the emergency department today after seeing her surgeon, at the clinic. Dr. Wilcox called to report that the patient was hypotensive and has not been eating or drinking since having her gallbladder removed on November 03, 2020. Per the patient's the patient has a fairly significant past medical history. She had 2 brain aneurysms in 2003 which were fairly significant. He states they were able to coil one of the aneurysms but the other when they were not so she does have a significant amount of scar tissue noted in her brain. He states however she did resolved fairly well and only had minor deficits from the aneurysm. He states that in January 2020 she contracted Covid and was hospitalized. While in the hospital the patient became very confused and disoriented and has been that way since. He states that since then she has not been wanting to eat or drink as she states it makes her throw up. And she would vomit whenever she would take a bite of food or drink anything. They had been seen in the ER on a few occasions and were seen by their primary care provider. At 1 point the provider suggested that this may all be neurological and referred them to Dr. Mejia, neurologist in [place]. The states that she had a CT scan of the brain and an EEG completed. Per the at that time she was started on Lamictal. The patient was on light Lamictal for about a month and deteriorated mentally significantly more. The patient and her then followed up with the primary care physician and he requested she be taken off Lamictal. Once she was taken off the Lamictal she did resolve somewhat however she still remains very confused and not wanting to eat or drink anything. Per his report she had a complete work-up and it was revealed that the patient needed to have her gallbladder removed. Patient had a follow-up appointment with her surgeon post cholecystectomy about 1 week ago. At that time she was still not eating and drinking. No vomiting was noted however she reports that nothing tastes good and that is why. told her and her that it was necessary she at least drink protein shakes. She has been refusing to do so as she states it does not taste good and she will thr ow up. However she has not. She was then seen today by her surgeon and then referred to the emergency department for further evaluation as her systolic blood pressures were in the 80s. - Related Data Allergies Allergy/AdvReac Type Severity Reaction Status Date / Time No Known Allergies Allergy Verified 11/14/20 15:06 Home Meds: Home Meds Simvastatin [Zocor] 20 mg PO DAILY 02/21/20 [History] Aspirin 325 mg PO DAILY 10/22/20 [History] Calcium Carbonate/Vitamin D3 [Os-Ronald 500+D] 1 tab PO DAILY 10/22/20 [History] Sucralfate [Carafate] 1 gm PO QID 10/22/20 [History] Docusate Sodium [Colace] 100 mg PO BID 20 Days #40 cap 11/03/20 [Rx] Past Medical History HEENT History: Reports: Impaired Vision Cardiovascular History: Reports: Aneurysm, Hypertension Respiratory History: Reports: None Gastrointestinal History: Reports: Other (See Below) Other Gastrointestinal History: Persistent N/V x 30 days per pt and family report. 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 Neurological History: Reports: Other (See Below) Other Neuro History: Vascular dementia without behavioral disturbances. Psychiatric History: Reports: None Endocrine/Metabolic History: Reports: Obesity/BMI 30+ Hematologic History: Reports: None Immunologic History: Reports: None Oncologic (Cancer) History: Reports: None Dermatologic History: Reports: None - Infectious Disease History Infectious Disease History: Reports: Novel Coronavirus Other Infectious Disease History: JAN 2020 - Past Surgical History Head Surgeries/Procedures: Reports: Other (See Below) Other HEENT Surgeries/Procedures: pt wears glasses and has a upper partial for two teeth Cardiovascular Surgical History: Reports: Aneurysm Female Surgical History: Reports: None Other Neurological Surgeries/Procedures: Brain aneurysm with repair. Oncologic Surgical History: Reports: None Social & Family History - Family History Family Medical History: No Pertinent Family History - Tobacco Use Tobacco Use Status *Q: Never Tobacco User Second Hand Smoke Exposure: No - Caffeine Use Caffeine Use: Reports: Coffee, Soda - Recreational Drug Use Recreational Drug Use: No ED ROS GENERAL - Review of Systems Review Of Systems: See Below Constitutional: Reports: Decreased Appetite. Denies: Fever, Chills HEENT: Reports: No Symptoms Respiratory: Reports: No Symptoms. Denies: Shortness of Breath, Cough Cardiovascular: Reports: No Symptoms. Denies: Chest Pain, Dyspnea on Exertion, Edema, Palpitations Endocrine: Reports: No Symptoms GI/Abdominal: Reports: Decreased Appetite. Denies: Abdominal Pain, Constipation, Diarrhea, Nausea, Vomiting : Reports: No Symptoms Musculoskeletal: Reports: No Symptoms Skin: Reports: Pallor Neurological: Reports: Confusion (Since having Covid in January 2020). Denies: Dizziness, Headache Psychiatric: Reports: Confusion (Since having Covid in January 2020) Hematologic/Lymphatic: Reports: No Symptoms Immunologic: Reports: No Symptoms ED EXAM, GENERAL - Physical Exam Exam: See Below Exam Limited By: No Limitations General Appearance: Alert, WD/WN, No Apparent Distress Eye Exam: Bilateral Eye: PERRL Ears: Normal External Exam, Hearing Grossly Normal Nose: Normal Inspection Throat/Mouth: Normal Inspection, Normal Lips, Normal Oropharynx, Normal Voice, No Airway Compromise Head: Atraumatic Neck: Normal Inspection, Supple Respiratory/Chest: No Respiratory Distress, Lungs Clear, Normal Breath Sounds, No Accessory Muscle Use, Chest Non-Tender Cardiovascular: Normal Peripheral Pulses, Regular Rate, Rhythm, No Edema, No Murmur Peripheral Pulses: 1+: Radial (L), Radial (R) GI/Abdominal: Normal Bowel Sounds, Soft, Non-Tender, No Distention (Female) Exam: Deferred Rectal (Female) Exam: Deferred Back Exam: Normal Inspection Extremities: Normal Inspection, No Pedal Edema Neurological: Alert, Confused, Slow to Respond. No: Oriented, Normal Cognition (Confused) Psychiatric: Flat Affect Skin Exam: Warm, Dry, Intact, No Rash, Pallor Lymphatic: No Adenopathy #1 Interpretation EKG Date: 11/14/20 Time: 15:58 Rhythm: NSR Rate (Beats/Min): 74 [place]: Normal P-Wave: Present QRS: LBBB ST-T: Normal QT: Normal EKG Interpretation Comments: Per Dr Velez interpretation: sinus rhythm at 74; left bundle branch block Course - Vital Signs Text/Narrative:: Patient presents with low blood pressures and failure to thrive at home. She has not been eating or drinking much of anything since January 2021. She has been followed by her primary care provider, neurology, and general surgery. Patient has not been eating or drinking due to vomiting and food not tasting good. Upon assessment the patient is oriented to self only. Her is at the bedside. She appears pale. Lungs are clear bowel tones are positive and she is not have any abdominal pain. She is a poor historian and is not able to tell me whether or not she has had any bloody or black tarry stools. Although the states she has not been having many bowel movements due to not eating much of anything. She is afebrile. She denies shortness of breath or cough. She denies any pain. She does have conjunctival pallor noted. Her mucous membranes do appear dry. I have ordered labs which include a CBC, CMP, CRP, magnesium, lactic acid, troponin, urinalysis and a chest x-ray. She will receive a liter of IV fluid as her blood pressure is 88/68. Once we have her labs back we will reevaluate. Last Recorded V/S: Last Vital Signs Temp 97.0 F 11/14/20 15:03 Pulse 78 11/14/20 15:03 Resp 12 11/14/20 15:03 BP 84/59 L 11/14/20 15:03 Pulse Ox 95 11/14/20 15:03 - Orders/Labs/Meds Orders: Active Orders 24 hr Category Date Time Status EKG Documentation Completion [RC] STAT Care 11/14/20 15:50 Active CORONAVIRUS COVID-19 BLADE [MOLEC] Stat Lab 11/14/20 16:47 Received UA RFX MARGE AND CULT IF INDIC [URIN] Stat Lab 11/14/20 15:34 Ordered Magnesium Sulfate/Water [Magnesium Sulfate in Water 4 Med 11/14/20 16:39 Active GM/50 ML] 4 gm Premix Bag 1 bag IV ONETIME Potassium Chloride [KCl in Water 10 MEQ/100 ML] 10 meq Med 11/14/20 16:45 Active Premix Bag 1 bag IV Q1H Sodium Chloride 0.9% [Saline Flush] Med 11/14/20 15:34 Active 10 ml FLUSH ASDIRECTED PRN Saline Lock Insert [OM.PC] Stat Oth 11/14/20 15:34 Ordered Medication Orders Potassium Chloride 10 meq/ (Premix) 100 mls @ 100 mls/hr IV Q1H MORRO Stop: 11/14/20 20:44 Last Admin: 11/14/20 16:55 Dose: 100 mls/hr Documented by: ZULAY Magnesium Sulfate 4 gm/ Premix 50 mls @ 12.5 mls/hr IV ONETIME ONE Stop: 11/14/20 20:38 Last Admin: 11/14/20 16:59 Dose: 12.5 mls/hr Documented by: ZULAY Sodium Chloride (Sodium Chloride 0.9% 10 Ml Syringe) 10 ml FLUSH ASDIRECTED PRN PRN Reason: Keep Vein Open Last Admin: 11/14/20 15:52 Dose: 10 ml Documented by: ZULAY Labs: Laboratory Tests 11/14/20 11/14/20 11/14/20 Range/Units 15:45 15:45 15:45 WBC 9.60 (3.98-10.04) K/mm3 RBC 4.44 (3.98-5.22) M/mm3 Hgb 13.3 (11.2-15.7) gm/dl Hct 37.5 (34.1-44.9) % MCV 84.5 D (79.4-94.8) fl MCH 30.0 (25.6-32.2) pg MCHC 35.5 (32.2-35.5) g/dl RDW Std Deviation 40.6 (36.4-46.3) fL Plt Count 258 (182-369) K/mm3 MPV 11.0 (9.4-12.3) fl Neut % (Auto) 55.4 (34.0-71.1) % Lymph % (Auto) 23.8 (19.3-51.7) % [place]born % (Auto) 13.5 H (4.7-12.5) % Eos % (Auto) 5.4 (0.7-5.8) Baso % (Auto) 0.4 (0.1-1.2) % Neut # (Auto) 5.32 (1.56-6.13) K/mm3 Lymph # (Auto) 2.28 (1.18-3.74) K/mm3 [place] # (Auto) 1.30 H (0.24-0.36) K/mm3 Eos # (Auto) 0.52 H (0.04-0.36) K/mm3 Baso # (Auto) 0.04 (0.01-0.08) K/mm3 Manual Slide Review Normal smear Sodium 137 (136-145) mEq/L Potassium 2.3 L* (3.5-5.1) mEq/L Chloride 96 L (98-107) mEq/L Carbon Dioxide 32 (21-32) mEq/L Anion Gap 11.3 (5-15) BUN 65 H D (7-18) mg/dL Creatinine 1.5 H (0.55-1.02) mg/dL Est Cr Clr Drug Dosing 28.00 mL/min Estimated GFR (MDRD) 34 (>60) mL/min BUN/Creatinine Ratio 43.3 H (14-18) Glucose 100 H (70-99) mg/dL Lactic Acid 1.2 (0.4-2.0) mmol/L Calcium 10.8 H (8.5-10.1) mg/dL Magnesium 1.4 L (1.8-2.4) mg/dL Total Bilirubin 0.5 (0.2-1.0) mg/dL AST 20 (15-37) U/L ALT 23 (14-59) U/L Alkaline Phosphatase 63 (46-116) U/L Troponin I (0.00-0.056) ng/mL C-Reactive Protein 1.2 H* (<1.0) mg/dL Total Protein 6.9 (6.4-8.2) g/dl Albumin 3.3 L (3.4-5.0) g/dl Globulin 3.6 gm/dL Albumin/Globulin Ratio 0.9 L (1-2) // Range/Units 15:45 WBC (3.98-10.04) K/mm3 RBC (3.98-5.22) M/mm3 Hgb (11.2-15.7) gm/dl Hct (34.1-44.9) % MCV (79.4-94.8) fl MCH (25.6-32.2) pg MCHC (32.2-35.5) g/dl RDW Std Deviation (36.4-46.3) fL Plt Count (182-369) K/mm3 MPV (9.4-12.3) fl Neut % (Auto) (34.0-71.1) % Lymph % (Auto) (19.3-51.7) % Sanborn % (Auto) (4.7-12.5) % Eos % (Auto) (0.7-5.8) Baso % (Auto) (0.1-1.2) % Neut # (Auto) (1.56-6.13) K/mm3 Lymph # (Auto) (1.18-3.74) K/mm3 [place]born # (Auto) (0.24-0.36) K/mm3 Eos # (Auto) (0.04-0.36) K/mm3 Baso # (Auto) (0.01-0.08) K/mm3 Manual Slide Review Sodium (136-145) mEq/L Potassium (3.5-5.1) mEq/L Chloride (98-107) mEq/L Carbon Dioxide (21-32) mEq/L Anion Gap (5-15) BUN (7-18) mg/dL Creatinine (0.55-1.02) mg/dL Est Cr Clr Drug Dosing mL/min Estimated GFR (MDRD) (>60) mL/min BUN/Creatinine Ratio (14-18) Glucose (70-99) mg/dL Lactic Acid (0.4-2.0) mmol/L Calcium (8.5-10.1) mg/dL Magnesium (1.8-2.4) mg/dL Total Bilirubin (0.2-1.0) mg/dL AST (15-37) U/L ALT (14-59) U/L Alkaline Phosphatase (46-116) U/L Troponin I 0.064 H* (0.00-0.056) ng/mL C-Reactive Protein (<1.0) mg/dL Total Protein (6.4-8.2) g/dl Albumin (3.4-5.0) g/dl Globulin gm/dL Albumin/Globulin Ratio (1-2) Meds: Medications Generic Name Dose Route Start Last Admin Trade Name Freq PRN Reason Stop Dose Admin Potassium Chloride 10 meq/ 100 mls @ 100 mls/hr 11/14/20 16:45 11/14/20 16:55 Premix IV 11/14/20 20:44 100 mls/hr Q1H MORRO Administration Magnesium Sulfate 4 gm/ Premix 50 mls @ 12.5 mls/hr 11/14/20 16:39 11/14/20 16:59 IV 11/14/20 20:38 12.5 mls/hr ONETIME ONE Administration Sodium Chloride 10 ml 11/14/20 15:34 11/14/20 15:52 Sodium Chloride 0.9% 10 Ml Syringe FLUSH 10 ml ASDIRECTED PRN Administration Keep Vein Open Discontinued Medications Generic Name Dose Route Start Last Admin Trade Name Thang PRN Reason Stop Dose Admin Sodium Chloride 1,000 mls @ 999 mls/hr 11/14/20 15:34 11/14/20 15:50 Normal Saline IV 11/14/20 16:34 999 mls/hr ONETIME ONE Administration - Re-Assessments/Exams Free Text/Narrative Re-Assessment/Exam: 11/14/20 16:38 Radiologist impression portable view of the chest: Nothing acute is appreciated on portable view of the chest. 11/14/20 17:15 Hematology is unremarkable, chemistry reveals a sodium of one thirty-seven, potassium 2.3, chloride ninety-six, carbon dioxide thirty-two, anion gap 11.3, BUN sixty-five, creatinine 1.5, GFR thirty, glucose one hundred, calcium 10.8, magnesium 1.4, troponin 0 0.064, C-reactive protein 1.2, lactic acid is pending. I have ordered for the patient to receive magnesium 4 g IV and potassium 40 mEq IV. The patient has denied any complaints of recent chest pain or shortness of breath or cardiac type symptoms. She does however complain of low back pain. I have called [facility] in [place] and spoken to the on-call hooker on, Dr. Rucker. At this time he states he is not concerned with an acute coronary syndrome as the patient is not complaining of any chest pain or cardiac type symptoms however he does feel she needs to have an ultrasound and a cardiac work-up due to her having a left bundle branch block. We have no previous EKGs to compare to. I have spoken to and he has agreed to accept care of this patient in transfer. I have to the patient and her and they have agreed to the transport as well. Patient will be transported by [facility]. Departure - Departure Time of Disposition: 17:16 Disposition: DC/Tfer to [facility] 02 Condition: Fair Clinical Impression: Hypokalemia, Hypomagnesemia, Elevated troponin - Discharge Information Referrals: Chloe Saldana LATCHER [Primary Care Provider] - Forms: ED Department Discharge Sepsis Event Note (ED) - Evaluation Sepsis Screening Result: No Definite Risk - Focused Exam Vital Signs: Vital Signs Temp Pulse Resp BP Pulse Ox 11/14/20 15:03 97.0 F 78 12 84/59 L 95 - My Orders Last 24 Hours: My Active Orders 11/14/20 15:34 UA RFX MARGE AND CULT IF INDIC [URIN] Stat Sodium Chloride 0.9% [Saline Flush] 10 ml FLUSH ASDIRECTED PRN Saline Lock Insert [OM.PC] Stat 11/14/20 15:50 EKG Documentation Completion [RC] STAT 11/14/20 16:39 Magnesium Sulfate/Water [Magnesium Sulfate in Water 4 GM/50 ML] 4 gm Premix Bag 1 bag IV ONETIME 11/14/20 16:45 Potassium Chloride [KCl in Water 10 MEQ/100 ML] 10 meq Premix Bag 1 bag IV Q1H 11/14/20 16:47 CORONAVIRUS COVID-19 BLADE [MOLEC] Stat - Assessment/Plan Last 24 Hours: My Active Orders 11/14/20 15:34 UA RFX MARGE AND CULT IF INDIC [URIN] Stat Sodium Chloride 0.9% [Saline Flush] 10 ml FLUSH ASDIRECTED PRN Saline Lock Insert [OM.PC] Stat 11/14/20 15:50 EKG Documentation Completion [RC] STAT 11/14/20 16:39 Magnesium Sulfate/Water [Magnesium Sulfate in Water 4 GM/50 ML] 4 gm Premix Bag 1 bag IV ONETIME 11/14/20 16:45 Potassium Chloride [KCl in Water 10 MEQ/100 ML] 10 meq Premix Bag 1 bag IV Q1H 11/14/20 16:47 CORONAVIRUS COVID-19 BLADE [MOLEC] Stat
--- NOTE | 2020-11-14 16:28 | CR ---
Chest: Portable view of the chest was obtained. Comparison: Prior chest x-ray of 02/20/20. Heart size and mediastinum are normal. Lungs are clear with no acute parenchymal change. Bony structures show nothing acute. Impression: 1. Nothing acute is seen on portable chest x-ray. Diagnostic code #1
[2020-11-14] MEDS ORDERED: Magnesium Sulfate/Water 4 GM in Premix Bag 1 BAG IV ONE (16:39)
[2020-11-14] MEDS: Potassium Chloride 10 MEQ in Premix Bag 1 BAG IV SCH ×2 (16:55→17:51)
== END 2020-11-14 18:05 ==
LOC: JD.ED 14:55
DX: E87.6 Hypokalemia (principal); E83.42 Hypomagnesemia; R79.89 Other specified abnormal findings of blood chemistry; I10 Essential (primary) hypertension; E66.9 Obesity, unspecified; Z68.30 Body mass index [BMI] 30.0-30.9, adult; Z20.822 Contact with and (suspected) exposure to COVID-19
CPT/HCPCS: 36415; 71045; 80053; 81001; 83605; 83735; 84484; 85025; 86140; 93005; 96365; 96368; 99285; J3475; J3480; J7030; U0002; 93010